=== PATIENT | male | born 1955 | race Caucasian/White ===

== ENCOUNTER 2018-07-21 14:57 | Inpatient (IN) ==
[2018-07-21] MEDS ORDERED: 0.9 % Sodium Chloride 1,000 ML IVC ONE (15:28)
[2018-07-21] MEDS ORDERED: Ipratropium/Albuterol Neb 3 ML IH ONE (15:29)
[2018-07-21] MEDS ORDERED: Aspirin 81 MG TAB.CHEW PO ONE (15:30)
[2018-07-21 15:54] LABS: Basophils % 0.2 %; Eosinophils # 0.1 K/mcL (0.0-0.6); Eosinophils % 0.5 %; Hematocrit 48.9 % (37.5-50.1); Hemoglobin 15.6 g/dL (12.9-16.9); Immature Granulocytes % 0.5 % (0-4); Lymphocytes # 1.7 K/mcL (0.6-4.6); Lymphocytes % 17.1 %; Mean Corpuscular HGB Conc 31.9 g/dL (31.6-35.5); Mean Corpuscular Hemoglobin 29.9 pg (28.0-33.3); Mean Corpuscular Volume 93.7 fL (83.0-100.0); Mean Platelet Volume 11.2 fL (9.4-12.4); Monocytes # 0.8 K/mcL (0.0-1.3); Monocytes % 7.7 %; Neutrophils # 7.4 K/mcL (1.6-8.9); Platelet Count 261 K/mcL (140-400); Red Blood Count 5.22 M/mcL (4.19-5.50); Red Cell Distribution Width 16.5 % (11.5-14.5)
[2018-07-21 16:14] LABS: Albumin 4.6 g/dL (3.5-5.7); Albumin/Globulin Ratio 1.8 (1.1-2.2); Bilirubin,Direct 0.4 mg/dL (0.0-0.2); Bilirubin,Indirect 0.6 mg/dL (0.0-1.2); Globulin 2.5 g/dL (2.4-3.5); Total Protein 7.1 g/dL (6.4-8.9)
[2018-07-21 16:15] LABS: BUN/Creatinine Ratio 34 (6-26); Blood Urea Nitrogen 39 mg/dL (8-23); Calcium 9.9 mg/dL (8.6-10.3); Carbon Dioxide 20 mEq/L (23-29); Chloride 105 mEq/L (98-107); Glucose 191 mg/dL (70-105); Osmolality,Calculated 301 (280-300); Potassium 5.2 mEq/L (3.5-5.1); Sodium 138 mEq/L (136-145); eGFR For Non-African Americans > 60 (> 60)
[2018-07-21 16:18] LABS: Troponin I 0.05 ng/mL (< 0.04)
[2018-07-21] MEDS ORDERED: Furosemide 40 MG/4 ML VIAL IVP ONE (16:28)
[2018-07-21] MEDS ORDERED: Nitroglycerin 25 MG/250 ML INFUS..BTL IVC SCH (16:30)
[2018-07-21] MEDS ORDERED: Piperacillin/Tazobactam 3.375 GM in 0.9 % Sodium Chloride Mini Bag 100 ML IVPB ONE (16:34)
[2018-07-21] MEDS ORDERED: *HR* Heparin 5,000 UNIT/ML VIAL IVP ONE (18:32)
[2018-07-21] MEDS ORDERED: *HR* Heparin 5,000 UNIT/ML VIAL IVP PRN ×2 (18:32)
--- NOTE | 2018-07-21 18:32 | Emergency Department Note ---
Disposition Clinical Impression: New onset a-fib, New onset of congestive heart failure, Non-STEMI (non-ST elevated myocardial infarction) Disposition: Admitted As Inpatient Condition: Good Referrals: Sherine Amezquita MD [Primary Care Provider] - General Adult HPI - General Chief complaint: ED Shortness of Breath/Dyspnea Stated complaint: dyspnea Time Seen by Provider: 07/21/18 15:17 Source: patient, family Mode of arrival: ambulatory Limitations: no limitations Nursing Notes Reviewed: Yes Vital Signs Reviewed: Yes - History of Present Illness HPI Narrative: Patient presenting to the emergency department for evaluation of dyspnea. Patient was initially brought back to the room placed on monitor and found to have a heart rate in the 150s to 170s. The patient himself is a very poor historian. He states that he is been short of breath for approximately the last week. Patient has friends at bedside. They state that the patient does not like to go to the doctor and was initially refusing to calm. Patient is mild cachectic with tobacco staining. Patient denies any history of COPD. He denies any previous history of similar. Patient is denying chest pain on initial ev aluation. The patient will undergo further evaluation for dyspnea including initial fluids as well as oxygen supplementation secondary to tachypnea despite his 100% SPO2 on room air Pain Scale: 5 - Related Data Allergies Allergy/AdvReac Type Severity Reaction Status Date / Time No Known Allergies Allergy Verified 07/21/18 14:59 Limitations: ROS unobtainable due to patients medical condition Constitutional: Denies: fever, chills Cardiovascular: Reports: dyspnea on exertion. Denies: chest pain Respiratory: Reports: dyspnea, wheezes Gastrointestinal: Reports: abdominal pain, diarrhea (Over the last week) Integumentary: Denies: rash, abrasion Past Medical History - Past Medical History Medical history: Reports: arthritis, diabetes, hypertension Psychiatric history: Reports: no psych history - Social History Smoking Status: Unknown if ever smoked Alcohol use: Reports: occasionally Drug use: Reports: none Physical Exam General: Patient in moderate distress secondary to respiratory symptoms Head: Normocephalic Atraumatic Eyes: PERRL, EOMI ENT: Airway patent, no stridor Neck: supple, no meningismus Chest: Decreased breath sounds bilaterally Cardiac: Irregular rhythm and rate Abdomen: soft, nontender, nondistended; no guarding, rebound, or tenderness to percussion Musculoskeletal: Calves symmetric, nontender. Skin: No rash, normal skin tone. Neuro: Alert and Oriented to person, place, and time; No obvious focal deficit. - General General appearance: alert Course - Reevaluation(s) Reevaluation #1: On reevaluation patient's heart rate has improved with oxygen and fluids to the 100-120. The patient looks much more comfortable. On reevaluation the patient states that he has been having some generalized abdominal pain with diarrhea. Patient with elevated lactate as well as troponin. Patient will undergo further investigation with CT abdomen and pelvis. Upon a initial lactate as well as concern for pleural effusions and possible abdominal source and initial dose of Zosyn was given. Blood cultures obtained prior. Reevaluation #2: X-ray concerning for pleural effusions. Patient was placed on BiPAP and had significant improvement in overall breathing as well as comfort. Patient with elevated troponin as well as significantly elevated BNP. Concern for new onset A. fib as well as CHF. - Consultations Consultation #1: Discussed with Dr. Enrique, interventional cardiology and patient EKG not consistent with STEMI. Patient to be placed on heparin and undergo further investigation Consultation #2: Discussed with hospitalist. Patient accepted for admission. Vital Signs Temperature 97.5 F L 07/21/18 15:14 Pulse Rate 126 07/21/18 15:14 Respiratory Rate 25 07/21/18 15:14 Blood Pressure 141/104 07/21/18 15:14 O2 Sat by Pulse Oximetry 100 07/21/18 15:14 Temperature 97.5 F L 07/21/18 15:14 Pulse Rate 126 07/21/18 15:14 Respiratory Rate 24 07/21/18 16:47 Blood Pressure 141/104 07/21/18 15:14 O2 Sat by Pulse Oximetry 100 07/21/18 16:47 Oxygen Delivery Oxygen Delivery Room Air Medical Decision Making - Lab Data Result diagrams: 07/21/18 15:31 07/21/18 15:31 Lab Results 07/21/18 07/21/18 07/21/18 Range/Units 15:31 15:31 15:31 WBC 10.0 (4.3-11.1) K/mcL RBC 5.22 (4.19-5.50) M/mcL Hgb 15.6 (12.9-16.9) g/dL Hct 48.9 (37.5-50.1) % MCV 93.7 (83.0-100.0) fL MCH 29.9 (28.0-33.3) pg MCHC 31.9 (31.6-35.5) g/dL RDW 16.5 H (11.5-14.5) % Plt Count 261 (140-400) K/mcL MPV 11.2 (9.4-12.4) fL Immature Gran % 0.5 (0-4) % Seg Neutrophils % 74.0 % Lymphocytes % 17.1 % Monocytes % 7.7 % Eosinophils % 0.5 % Basophils % 0.2 % Neutrophils # 7.4 (1.6-8.9) K/mcL Lymphocytes # 1.7 (0.6-4.6) K/mcL Monocytes # 0.8 (0.0-1.3) K/mcL Eosinophils # 0.1 (0.0-0.6) K/mcL Basophils # 0.0 (0.0-0.2) K/mcL Sodium 138 (136-145) mEq/L Potassium 5.2 H (3.5-5.1) mEq/L Chloride 105 (98-107) mEq/L Carbon Dioxide 20 L (23-29) mEq/L BUN 39 H (8-23) mg/dL Creatinine 1.14 (0.70-1.30) mg/dL Est GFR ( Amer) > 60 (> 60) Est GFR (Non-Af Amer) > 60 (> 60) BUN/Creatinine Ratio 34 H (6-26) Glucose 191 H (70-105) mg/dL Calculated Osmolality 301 H (280-300) Lactic Acid (0.5-2.2) mmol/L Calcium 9.9 (8.6-10.3) mg/dL Total Bilirubin 1.0 (0.3-1.0) mg/dL Direct Bilirubin 0.4 H (0.0-0.2) mg/dL Indirect Bilirubin 0.6 (0.0-1.2) mg/dL AST 31 (13-39) Units/L ALT 36 (7-52) Units/L Alkaline Phosphatase 73 (34-104) Units/L Troponin I 0.05 H* (< 0.04) ng/mL B-Natriuretic Peptide (Less than 100) pg/mL Serum Total Protein 7.1 (6.4-8.9) g/dL Albumin 4.6 (3.5-5.7) g/dL Globulin 2.5 (2.4-3.5) g/dL Albumin/Globulin Ratio 1.8 (1.1-2.2) 07/21/18 07/21/18 07/21/18 Range/Units 15:31 15:41 17:35 WBC (4.3-11.1) K/mcL RBC (4.19-5.50) M/mcL Hgb (12.9-16.9) g/dL Hct (37.5-50.1) % MCV (83.0-100.0) fL MCH (28.0-33.3) pg MCHC (31.6-35.5) g/dL RDW (11.5-14.5) % Plt Count (140-400) K/mcL MPV (9.4-12.4) fL Immature Gran % (0-4) % Seg Neutrophils % % Lymphocytes % % Monocytes % % Eosinophils % % Basophils % % Neutrophils # (1.6-8.9) K/mcL Lymphocytes # (0.6-4.6) K/mcL Monocytes # (0.0-1.3) K/mcL Eosinophils # (0.0-0.6) K/mcL Basophils # (0.0-0.2) K/mcL Sodium (136-145) mEq/L Potassium (3.5-5.1) mEq/L Chloride (98-107) mEq/L Carbon Dioxide (23-29) mEq/L BUN (8-23) mg/dL Creatinine (0.70-1.30) mg/dL Est GFR ( Amer) (> 60) Est GFR (Non-Af Amer) (> 60) BUN/Creatinine Ratio (6-26) Glucose (70-105) mg/dL Calculated Osmolality (280-300) Lactic Acid 5.7 H* 3.7 H (0.5-2.2) mmol/L Calcium (8.6-10.3) mg/dL Total Bilirubin (0.3-1.0) mg/dL Direct Bilirubin (0.0-0.2) mg/dL Indirect Bilirubin (0.0-1.2) mg/dL AST (13-39) Units/L ALT (7-52) Units/L Alkaline Phosphatase (34-104) Units/L Troponin I (< 0.04) ng/mL B-Natriuretic Peptide 1821 H (Less than 100) pg/mL Serum Total Protein (6.4-8.9) g/dL Albumin (3.5-5.7) g/dL Globulin (2.4-3.5) g/dL Albumin/Globulin Ratio (1.1-2.2)
[2018-07-21] MEDS ORDERED: Heparin 25,000 UNIT/500 ML D5W 25,000 UNIT/500 ML BAG IVC SCH (18:45)
[2018-07-21] MEDS ORDERED: Naloxone 0.4 MG/ML INJ IVP PRN (23:08)
--- NOTE | 2018-07-21 23:20 | Internal Med History&Physical ---
Date of Encounter: 07/22/18 Time of Encounter: 01:20 Internal Medicine - H&P: HPI Chief complaint: New-onset atrial fibrillation, new onset congestive heart failure, NSTEMI Admitted From: Emergency Dept Plans for Post Hospital Care: Home History of present illness: Mr. Marc is a 62 year old male Patient presented to the emergency room for shortness of breath. Upon arrival he was noted to have a heart rate up into the 170s. Patient was a poor historian but stated that his symptoms began about a week prior to his pr esentation. He does not see a doctor regularly. He denied chest pain and had 100% saturations on room air. Patient was given IV fluids and oxygen and his heart rate improved to 100-120. Patient then stated that he was having generalized abdominal pain and diarrhea. CBC was within normal limits. BMP showed a potassium of 5.2 but otherwise within normal limits. Patient's initial lactic acid was 5.7 but improved to 2.5 with IV fluids. Patient's troponin was elevated to 0.05, and his initial BNP was 1821. Chest x-ray showed pleural effusions and atelectasis. Due to his abdominal pain in abdomen and pelvis CT was ordered that showed no definitive acute process in the abdomen or pelvis. It did show small to moderate bilateral pleural effusions present with bilateral lower lobe compressive atelectasis and possible small amount of airspace consolidation. There is small amount of ascites and diffuse anasarca in the soft tissues suggestive of diffuse third spacing of fluid. The liver appeared noncirrhotic. Blood cultures were drawn and patient was started on Zosyn. He is also put on BiPAP and showed significant improvement with his breathing. EKG was performed and showed sinus tach with a rate of 101, frequent atrial preventricular complexes and a QTC of 471. Patient also had a prolonged RI interval of 220 ms. Patient's V1 through V3 appeared to have some ST elevations, and the emergency room contacted Dr. Enrique of interventional cardiology , and it was determined to not be consistent with a STEMI. He recommended patient be put on heparin drip and will consult on the patient in the morning. Patient was given 40 mg of Lasix, nitroglycerin glycerin drip was ordered but not started due to low blood pressures. He was sent to the medical floor for further management with diagnosis of new onset atrial fibrillation, NSTEMI and congestive heart failure. Upon my evaluation, patient has BiPAP mask applied and is resting comfortably in the hospital bed. He denies nausea, vomiting, chest pain, diarrhea, constipation and abdominal pain. Past Med Surg Social Fam HX - Past Medical History Medical history: arthritis, diabetes, hypertension Psychiatric history: no psych history - Social History Smoking Status: Unknown if ever smoked Alcohol use: occasionally Drug use: none Internal Medicine - H&P: Meds Allergy/AdvReac Type Severity Reaction Status Date / Time No Known Allergies Allergy Verified 07/21/18 14:59 All Systems PM: A 10-system review of systems was performed and is negative for pertinent fi ndings except as documented above in the HPI. - Constitutional Vitals: Temp Pulse Resp BP Pulse Ox 97.8 F 96 28 99/71 100 07/21/18 22:47 07/21/18 22:47 07/21/18 22:54 07/21/18 22:47 07/21/18 22:54 General appearance: Present: cooperative, A&O X 3, pleasant, no acute distress, answers questions appropriately Exam: - - Head Head exam: Present: normal inspection - Eye Eye exam: Present: EOMI, normal appearance - Respiratory Respiratory exam: Absent: CTAB, rales, respiratory distress, rhonchi, wheezes - Cardiovascular Cardiovascular exam: Present: irregular rhythm. Absent: diastolic murmur, systolic murmur - GI/Abdominal GI/Abdominal exam: Present: normal bowel sounds, soft. Absent: tenderness - Extremities Exam Extremities exam: Present: warm, radial pulses palpable and symmetrical. Absent: pedal edema, tenderness - Neurological Exam Neurological exam: Present: no focal deficits, strengths equal and symetr throughout. Absent: motor sensory deficit, facial droop, speech deficit - Skin Skin exam: Present: dry, normal color, warm Internal Med - H&P Results - Labs CBC & Chem 7: 07/21/18 15:31 07/21/18 15:31 Labs: Short CBC 07/21/18 Range/Units 15:31 WBC 10.0 (4.3-11.1) K/mcL Hgb 15.6 (12.9-16.9) g/dL Hct 48.9 (37.5-50.1) % Plt Count 261 (140-400) K/mcL Neutrophils # 7.4 (1.6-8.9) K/mcL BMP 07/21/18 15:31 Sodium 138 Potassium 5.2 H Chloride 105 Carbon Dioxide 20 L BUN 39 H Creatinine 1.14 Glucose 191 H Calcium 9.9 Cardiac Enzymes 07/21/18 Range/Units 15:31 Troponin I 0.05 H* (< 0.04) ng/mL Liver Function 07/21/18 Range/Units 15:31 Total Bilirubin 1.0 (0.3-1.0) mg/dL Direct Bilirubin 0.4 H (0.0-0.2) mg/dL AST 31 (13-39) Units/L ALT 36 (7-52) Units/L Alkaline Phosphatase 73 (34-104) Units/L Albumin 4.6 (3.5-5.7) g/dL - Impressions ITS Impressions Chest X-Ray 07/21/18 15:29 IMPRESSION: Pleural effusions and atelectasis. D/ / Zackery Askew MD / Zackery Askew MD Interpreting Provider: Zackery Askew MD Abdomen/Pelvis CT 07/21/18 16:28 IMPRESSION: 1. No definite acute process in the abdomen or pelvis. 2. Small to moderate bilateral pleural effusions are present with bilateral lower lobe compressive atelectasis and a possible small amount of airspace consolidation. 3. A small amount of ascites and diffuse anasarca in the soft tissues are also present. Findings are overall suggestive of diffuse third-spacing of fluid. The liver is non-cirrhotic in appearance. D/ / 07/21/2018 17:44:57 Devon Donahue MD / tyson Interpreting Provider: Devon Donahue MD - Assessment and plan (1) New onset a-fib Current Visit: Yes Status: Acute Assessment and plan: Patient has a regular heart rate on exam, and on EKG. Previous EKG from 2012 showed sinus rhythm. Echocardiogram from September of last year also did not indicate atrial fibrillation. Patient was started on heparin drip in the emergency room and cardiology was consulted. Cardiac monitoring Continue to trend troponins Follow-up cardiology consult Heparin drip (2) New onset of congestive heart failure Current Visit: Yes Status: Acute Assessment and plan: Worsened from last September when patient had an echocardiogram performed that indicated mild left ventricular diastolic dysfunction with an ejection fraction of 40-45%. No previous BNP is have been performed, patient's BNP in the emergency room was 1821. On imaging he also had pleural effusions, ascites and generalized anasarca. 40 mg of Lasix was given to the patient in the ER. Continue BiPAP Cardiology consult in the morning Continue Lasix Cardiac monitoring Daily weights Strict I's and O's (3) Non-STEMI (non-ST elevated myocardial infarction) Current Visit: Yes Status: Acute Assessment and plan: Patient's troponin elevated to 0.05, with no STEMI changes on EKG. 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 Diabetic diet Monitor sugars with meals and at night Low-dose insulin sliding scale Hold home meds Qualifiers: Diabetes mellitus type: type 2 Diabetes mellitus fdc insulin use: without fdc use Diabetes mellitus complication status: without complication Qualified Code(s): E11.9 - Type 2 diabetes mellitus without complications (5) Nicotine dependence Current Visit: Yes Status: Acute Assessment and plan: Nicotine patch as needed Qualifiers: Nicotine product type: cigarettes Substance use status: uncomplicated Qualified Code(s): F17.210 - Nicotine dependence, cigarettes, uncomplicated (6) DVT prophylaxis Current Visit: Yes Status: Acute Assessment and plan: Patient on heparin drip - Time Spent With Patient Total time spent is greater than 50% in coordination of care (as documented) at patient's floor/unit and/or counseling patient:
[2018-07-22] MEDS ORDERED: *HR* Dextrose 50 % in Water (Syg) 50 ML SYRINGE IVP PRN (04:09)
[2018-07-22] MEDS ORDERED: D5% in Water 1,000 ML IVC PRN (04:09)
[2018-07-22] MEDS ORDERED: Dextrose Gel 15 GM/37.5 ML TUBE PO PRN ×2 (04:09)
[2018-07-22] MEDS ORDERED: Nicotine 21 MG PATCH.TD24 TD PRN (04:12)
[2018-07-22 06:15] LABS: Hematocrit 42.3 % (37.5-50.1); Mean Corpuscular HGB Conc 31.9 g/dL (31.6-35.5); Mean Corpuscular Hemoglobin 29.4 pg (28.0-33.3); Mean Corpuscular Volume 92.2 fL (83.0-100.0); Mean Platelet Volume 11.2 fL (9.4-12.4); Platelet Count 182 K/mcL (140-400); Red Blood Count 4.59 M/mcL (4.19-5.50); Red Cell Distribution Width 16.2 % (11.5-14.5)
[2018-07-22 06:18] LABS: Hemoglobin 13.5 g/dL (12.9-16.9)
[2018-07-22 07:25] LABS: BUN/Creatinine Ratio 48 (6-26); Blood Urea Nitrogen 44 mg/dL (8-23); Calcium 9.1 mg/dL (8.6-10.3); Carbon Dioxide 20 mEq/L (23-29); Chloride 109 mEq/L (98-107); Glucose 157 mg/dL (70-105); Osmolality,Calculated 302 (280-300); Potassium 4.5 mEq/L (3.5-5.1); Sodium 139 mEq/L (136-145); eGFR For Non-African Americans > 60 (> 60)
[2018-07-22] MEDS: Insulin LISPRO 300 UNITS/3 ML VIAL SQ SCH ×4 (07:38→22:03)
--- NOTE | 2018-07-22 08:13 | Cardiology Consult Note ---
Addendum entered and electronically signed by Nicko Waterman DO 07/22/18 11:53: I have personally performed a face to face evaluation on this patient. I have r eviewed and agree with the care plan. History and exam by me shows: Patient independently seen and examined. History of COPD and a nonischemic cardiomyopathy. TTE 2012 demonstrated an LVEF of 40-45%. Presents with increasing shortness of breath and hypoxia from PCPs office. Mild, adynamic troponin elevation noted. No acute ECG changes. Elevated BNP. Pleural effusions noted on chest x-ray. Heart failure with reduced ejection fraction, acutely decompensated. History of a nonischemic cardiomyopathy. Mild troponin elevation likely secondary to respiratory insufficiency and hypoxemia. Presentation is not consistent with ACS. Agree with ongoing diuresis as tolerated. Monitor creatinine, daily weights, strict I's and O's. CHF education provided. Agree with resuming beta toni. Consider ANNIE inhibitor prior to discharge. Continue IV Lasix for now, transition to oral prior to discharge. Atrial tachycardia noted. Beta toni should help. Okay to stop heparin. Thanks, Nicko Waterman DO, [facility] Original Note: Date of Encounter: 07/22/18 Time of Encounter: 08:00 Assessment and Plan (1) Acute on chronic systolic (congestive) heart failure Current Visit: Yes Status: Acute Patient with history of NICMP EF 40-45% diagnosed in 2012. Re-peat TTE pending. BNP 1882. Troponin 0.05, 0.04x2. Likely demand ischemia in the setting of CHF. Last TTE 09/2017-EF 40-455, mild DD. No significant valvular disease. Per family patient has poor f/u out-pt. Poor historian. CHF education reviewed. Low sodium diet stressed. Per home med list patient was on GDMT. Will restart toprol XL at 50mg daily. Add aceI if b/p allows. Continue IV lasix. Strict I&O and daily weights. (2) Cardiomyopathy Current Visit: Yes Status: Chronic H/o NICMP. [facility] 2012 showed non-obstructive CAD. Qualifiers: Cardiomyopathy type: ischemic Qualified Code(s): I25.5 - Ischemic cardiomyopathy (3) Atrial tachycardia Current Visit: Yes Status: Acute Intermittent atrial tachycardia seen. Appears to be sinus tachycardia with first degree block and PAC. At times it is not clear. I will review with Dr. Waterman. On heparin gtt for possible afib. Restart bb. Discussion w patient/family: The assessment and plan as outlined above was discussed with the patient and/or family members who expressed understanding and agreement. All questions were answered. Thank you for involving us in the care of your patient. Please call with any questions. History of Present Illness Consult date: 07/22/18 Requesting physician: Rasheed Toth Consult reason: abnormal EKG, Chest pain Chief complaint: Chest pain, SOB History of present illness: Mr. Marc is a 62 year old male with a past medical history significant for COPD, tobacco use, NICMP, non-obstructive CAD on [facility] 2012, DM, HTN. He presents to the hospital from his PCP office with the c/o difficulty breathing and chest pain. C/o chest congestion, cough, and SOB "all winter." Yesterday at his PCP office he developed increased SOB and midsternal chest pressure. His SPO2 was 40% on arrival to his PCP per family. He was sent to the ED. His work-up included EKG that showed sinus tachycardia sinus arrhythmia first degree block. Troponin elevated at 0.04. CXR showed pleural effusions. CT scan also showed small to moderate pleural effusions with compressive atelectasis. Cardiology consulted for further recommendations. On my exam he was chest pain free. Past Med Surg Social Fam HX - Past Medical History Medical history: arthritis, cardiomyopathy, coronary artery disease, diabetes, hypertension Psychiatric history: no psych history - Social History Smoking Status: Unknown if ever smoked Alcohol use: occasionally Drug use: none Medications and Allergies Allergy/AdvReac Type Severity Reaction Status Date / Time No Known Allergies Allergy Verified 07/21/18 14:59 All Systems Review: The remainder of the systems were reviewed and are negative Physical Examination Vital Signs, Last 4 Hours Temp Pulse Resp BP Pulse Ox 07/22/18 07:50 98.5 F 93 20 100/59 94 07/22/18 05:08 98.4 F 90 20 104/64 100 07/22/18 04:39 25 99/71 100 General: Conversant, No Apparent Distress HEENT: Atraumatic, Normocephaly, Mucus Membranes Moist Neck: No JVD, Normal carotid pulses Cardiac: Reg Rate and Rhythm, Normal S1 and S2, No Murmur Lungs: Normal Breath Sounds, No Wheeze, Rales, Rhonchi Neuro: Alert and responsive, No focal deficits noted Abdomen: Soft, Non-Tender Skin: No rashes noted on visualized skin Musculoskeletal: No Chest Wall Tenderness Extremities: No Clubbing, No Cyanosis, Normal Pulses, Other (2= pitting edema ) Results 07/22/18 06:04 07/22/18 06:04 Lab Results 07/21/18 07/21/18 07/21/18 15:31 15:31 15:31 WBC 10.0 Hgb 15.6 Hct 48.9 Plt Count 261 Sodium 138 Potassium 5.2 H Chloride 105 Carbon Dioxide 20 L BUN 39 H Creatinine 1.14 Glucose 191 H Calcium 9.9 Total Bilirubin 1.0 AST 31 ALT 36 Alkaline Phosphatase 73 Troponin I 0.05 H* B-Natriuretic Peptide 07/21/18 07/22/18 07/22/18 15:31 01:07 06:04 WBC 7.4 Hgb 13.5 D Hct 42.3 Plt Count 182 Sodium Potassium Chloride Carbon Dioxide BUN Creatinine Glucose Calcium Total Bilirubin AST ALT Alkaline Phosphatase Troponin I 0.04 H* B-Natriuretic Peptide 1821 H 07/22/18 07/22/18 06:04 06:04 WBC Hgb Hct Plt Count Sodium 139 Potassium 4.5 Chloride 109 H Carbon Dioxide 20 L BUN 44 H Creatinine 0.91 Glucose 157 H Calcium 9.1 Total Bilirubin AST ALT Alkaline Phosphatase Troponin I 0.04 H* B-Natriuretic Peptide - Imaging and Cardiology Echo: report reviewed - EKG Interpretation EKG results cardiology: personally reviewed Consult Discharge Plan - Plan Referrals: Sherine Amezquita MD [Primary Care Provider] -
[2018-07-22] MEDS: Furosemide 40 MG/4 ML VIAL IVP SCH ×2 (09:05→17:07)
[2018-07-22 11:16] LABS: Estimated Average Glucose 137 mg/dl; Hemoglobin A1C 6.4 %
[2018-07-22] MEDS: Metoprolol XL (24 HR) Succ 50 MG TAB.ER.24H PO SCH (11:55)
--- NOTE | 2018-07-22 13:02 | Internal Med Progress Note ---
Hospitalist Progress Note - Encounter Date of Encounter: 07/22/18 Time of Encounter: 12:59 - Subjective Interval History: I have seen and evaluated this patient at bedside. He reports improvement in his shortness of breath. denies chest pain, nausea or vomiting. reports chronic diarrhea. - Exam Vitals: Temp Pulse Resp BP Pulse Ox 97.5 F L 96 20 111/73 96 07/22/18 11:35 07/22/18 11:35 07/22/18 11:35 07/22/18 11:35 07/22/18 11:35 Exam: Vitals: Reviewed. General: Alert and oriented x3. In mild distress due to shortness of breath. Skin: Normal color, no rash, no lesions. HEENT: EOM, pupils equal, round and reactive. Cardiovascular: RRR, normal S1 & S2, no rubs, murmurs or gallops. Lungs: CTA b/l, no wheezes or crackles. Abdomen: Obese, Soft, non-tender, no rigidity. Extremities: trace pitting edema in the lower extr b/l. 2/5 strength in the lower extr b/l. Neurological: Normal cognition. Rest of the physical exam is non contributory - Assessment and Plan (1) Acute on chronic systolic (congestive) heart failure Current Visit: Yes Status: Acute Assessment and Plan: Patient presenting with shortness of breath. Plan: Continue gentle IV diruresis with furosemide 40mg/IV BID strict intake and output water restriction to 1.5 litters a day. daily weight 2 gram sodium diet will continue to follow cardiology recommendations consider adding low dose ACEs if BP tolerates it. Continue low dose beta-toni (2) Hypertension Current Visit: Yes Status: Chronic Assessment and Plan: BP running in the low side. Patient on furosemide and metoprolol. holding parameter for SBP <110 (3) COPD (chronic obstructive pulmonary disease) Current Visit: Yes Status: Chronic Assessment and Plan: Not on acute exacerbation. no wheezing on auscultation. Plan incentive spirometry, plus bronchodilators PRN. (4) Diabetes Current Visit: Yes Status: Chronic Assessment and Plan: A1C 6.4. Blood sugar well controlled on lispro medium dose sliding scale. carb controlled diet. (5) Diarrhea Current Visit: Yes Status: Chronic Assessment and Plan: GI panel. Consider consulting GI for further work-up following GI panel. DVT Prophylaxis: On heparin subQ. - Summary of Assessment and Plan Summary of Assessment and Plan: Patient to remain in the hospital due to acute decompensated HfrEf on IV diuretics. - Time Spent with Patient Total time spent is greater than 50% in coordination of care (as documented) at patient's floor/unit and/or counseling patient: Greater than 35 minutes (45) Plan of Care Discussed with: patient (and the nurse.) Internal Medicine: Result - Labs CBC & Chem 7: 07/22/18 06:04 07/22/18 06:04 Labs: Short CBC 07/21/18 07/22/18 Range/Units 15:31 06:04 WBC 10.0 7.4 (4.3-11.1) K/mcL Hgb 15.6 13.5 D (12.9-16.9) g/dL Hct 48.9 42.3 (37.5-50.1) % Plt Count 261 182 (140-400) K/mcL Neutrophils # 7.4 (1.6-8.9) K/mcL BMP 07/21/18 07/22/18 15:31 06:04 Sodium 138 139 Potassium 5.2 H 4.5 Chloride 105 109 H Carbon Dioxide 20 L 20 L BUN 39 H 44 H Creatinine 1.14 0.91 Glucose 191 H 157 H Calcium 9.9 9.1 Cardiac Enzymes 07/21/18 07/22/18 07/22/18 Range/Units 15:31 01:07 06:04 Troponin I 0.05 H* 0.04 H* 0.04 H* (< 0.04) ng/mL Liver Function 07/21/18 Range/Units 15:31 Total Bilirubin 1.0 (0.3-1.0) mg/dL Direct Bilirubin 0.4 H (0.0-0.2) mg/dL AST 31 (13-39) Units/L ALT 36 (7-52) Units/L Alkaline Phosphatase 73 (34-104) Units/L Albumin 4.6 (3.5-5.7) g/dL - Impressions Impressions Chest X-Ray 07/21/18 15:29 IMPRESSION: Pleural effusions and atelectasis. D/ / Zackery Askew MD / Zackery Askew MD Interpreting Provider: Zackery Askew MD Abdomen/Pelvis CT 07/21/18 16:28 IMPRESSION: 1. No definite acute process in the abdomen or pelvis. 2. Small to moderate bilateral pleural effusions are present with bilateral lower lobe compressive atelectasis and a possible small amount of airspace consolidation. 3. A small amount of ascites and diffuse anasarca in the soft tissues are also present. Findings are overall suggestive of diffuse third-spacing of fluid. The liver is non-cirrhotic in appearance. D/ / 07/21/2018 17:44:57 Devon Donahue MD / [facility] Interpreting Provider: Devon Donahue MD Consult Discharge Plan - Plan Referrals: Sherine Amezquita MD [Primary Care Provider] - (2) Hypertension Qualifiers: Hypertension type: unspecified Qualified Code(s): I10 - Essential (primary) hypertension (3) COPD (chronic obstructive pulmonary disease) Qualifiers: COPD type: unspecified COPD Qualified Code(s): J44.9 - Chronic obstructive pulmonary disease, unspecified (4) Diabetes Qualifiers: Diabetes mellitus type: type 2 Diabetes mellitus placing judge insulin use: without placing judge use Diabetes mellitus complication status: without complication Qualified Code(s): E11.9 - Type 2 diabetes mellitus without complications (5) Diarrhea Qualifiers: Diarrhea type: unspecified type Qualified Code(s): R19.7 - Diarrhea, unspecified
[2018-07-22] MEDS ORDERED: Ipratropium/Albuterol Neb 3 ML IH PRN (13:05)
[2018-07-22] MEDS: *HR* Heparin 5,000 UNIT/ML VIAL SQ SCH ×2 (14:19→22:28)
--- NOTE | 2018-07-22 21:35 | Electrocardiograph Report ---
[address] [address] Test Date: 2018-07-21 Pat Name: Justin Marc Department: EXAM14 Room: 2A Gender: M Pediatric Oncology Nurse: : 1955 Requested By: Rik Francois Order Number: [id number] Reading MD: Tristin Awan Measurements Intervals [place] Rate: 101 P: 20 TX: 220 QRS: 31 QRSD: 107 T: 171 QT: 363 QTc: 471 Interpretive Statements Multifocal atrial tachycardia Low voltage, extremity leads Poor R wave progression Nonspecific T abnormalities, lateral leads Electronically Signed On 07-22-2018 21:34:42 EST by Tristin Awan
[2018-07-23 01:47] LABS: ABG Base Excess -5 mEq/L (-2 to 3); ABG HCO3 21 mEq/L (21-27); ABG Oxygen Saturation 98 % (95-98); ABG PCO2 42 mmHg (35-45); ABG PH 7.31 pH Units (7.32-7.45); ABG PO2 117 mmHg (85-104); ABG TCO2 23 mEq/L (20-26)
--- NOTE | 2018-07-23 05:31 | Event Note ---
Date of Encounter: 07/23/18 Time of Encounter: 01:03 Notified by nurse of patient having increased respiratory rate with brief periods of apnea. Assessed at bedside with Dr Vale. Appears to have undiagnosed sleep apnea. Vitals stable, remains easily arousable, and oriented. ABG ordered and RT to bedside to adjust BIPAP mask. Would likely benefit from sleep study.
[2018-07-23] MEDS: *HR* Heparin 5,000 UNIT/ML VIAL SQ SCH ×3 (06:15→21:11)
[2018-07-23 07:27] LABS: Basophils % 0.4 %; Eosinophils % 0.3 %; Hemoglobin 13.9 g/dL (12.9-16.9); Immature Granulocytes % 0.4 % (0-4); Lymphocytes # 1.8 K/mcL (0.6-4.6); Mean Corpuscular HGB Conc 32.3 g/dL (31.6-35.5); Mean Corpuscular Hemoglobin 29.6 pg (28.0-33.3); Mean Corpuscular Volume 91.5 fL (83.0-100.0); Mean Platelet Volume 11.4 fL (9.4-12.4); Monocytes # 1.2 K/mcL (0.0-1.3); Monocytes % 10.4 %; Neutrophils # 8.1 K/mcL (1.6-8.9); Platelet Count 218 K/mcL (140-400); Red Cell Distribution Width 16.1 % (11.5-14.5); Segmented Neutrophils % 72.5 %
[2018-07-23 07:55] LABS: Calcium 9.2 mg/dL (8.6-10.3); Magnesium 1.9 mg/dL (1.6-2.6); Phosphorous 5.5 mg/dL (2.7-4.5); Potassium 4.7 mEq/L (3.5-5.1)
[2018-07-23] MEDS: Insulin LISPRO 300 UNITS/3 ML VIAL SQ SCH ×4 (09:01→21:11)
[2018-07-23] MEDS: Metoprolol XL (24 HR) Succ 50 MG TAB.ER.24H PO SCH (09:02)
[2018-07-23] MEDS: Furosemide 40 MG/4 ML VIAL IVP SCH (09:02)
[2018-07-23] MEDS ORDERED: 0.9 % Sodium Chloride 250 ML IVC ONE (10:09)
--- NOTE | 2018-07-23 10:22 | Internal Med Progress Note ---
<DantefabiánHaley mendez - Last Filed: 07/23/18 14:09> Hospitalist Progress Note - Encounter Date of Encounter: 07/23/18 Time of Encounter: 08:30 - Subjective Interval History: Patient seen and examined at bedside. Pt sleeping comfortably with Bipap on upon my arrival. He states that he is not having any SOB, CP, abdominal pain. He r eports that he is comfortable. He did have an episode of possible sleep apnea overnight. - Exam Vitals: Temp Pulse Resp BP Pulse Ox 98.4 F 84 20 92/68 100 07/23/18 08:02 07/23/18 08:02 07/23/18 08:02 07/23/18 10:03 07/23/18 08:02 Exam: General: Alert and oriented . WD/WN In NAD. Skin: Normal color, no rash, no lesions. HEENT: EOMI, PERRLA, mucous membranes moist Cardiovascular: RRR, normal S1 & S2, no rubs, murmurs or gallops. Lungs: LCTAB, no cyanosis Abdomen: Obese, Soft, non-tender, no rigidity. BS present Extremities: trace pitting edema in the lower extr b/l. Neurological: alert, no acute deficits - Assessment and Plan (1) Acute on chronic systolic (congestive) heart failure Current Visit: Yes Status: Acute Assessment and Plan: SOB improved. Pt currently on Bipap LCTAB UOP 07/22: 1453 Cardiology has been consulted, appreciate their recommendations. Plan: -Will hold lasix for now in setting of SHAREE, restart based on clinical picture -Strict intake and output -Water restriction to 1.5 litters a day. -Daily weight -2 gram sodium diet -Continue low dose beta-toni -Consider adding low dose ACEI if BP tolerates it. (2) SHAREE (acute kidney injury) Current Visit: Yes Status: Acute Assessment and Plan: SHAREE in the setting of AECHF with aggressive diueresis SCr 1.68, GFR 41 with baseline SCr in normal range Plan: -Hold lasix for now -Strict I&O -Talavera cath -Renal US -Continue to monitor renal function -Avoid nephrotoxins and renally dose medications (3) COPD (chronic obstructive pulmonary disease) Current Visit: Yes Status: Chronic Assessment and Plan: Not on acute exacerbation. LCTAB Plan: -Incentive spirometry -Bronchodilators PRN. (4) Diabetes Current Visit: Yes Status: Chronic Assessment and Plan: BS in the 130s-190s Plan: -Accuchecks ACHS -Continue SSI (5) Hypertension Current Visit: Yes Status: Chronic Assessment and Plan: Currently slightly hpotensive in the low 90's systolic. Pt has been lower this admission, currently asymptomatic. Plan: -250cc NS bolus while wearing bipap -Hold metoprolol for SBP<110 DVT Prophylaxis: Heparin SQ. - Time Spent with Patient Total time spent is greater than 50% in coordination of care (as documented) at patient's floor/unit and/or counseling patient: Internal Medicine: Result - Labs CBC & Chem 7: 07/23/18 06:52 07/23/18 06:52 Labs: Short CBC 07/23/18 Range/Units 06:52 WBC 11.2 H D (4.3-11.1) K/mcL Hgb 13.9 (12.9-16.9) g/dL Hct 43.0 (37.5-50.1) % Plt Count 218 (140-400) K/mcL Neutrophils # 8.1 (1.6-8.9) K/mcL BMP 07/23/18 06:52 Sodium 136 Potassium 4.7 Chloride 104 Carbon Dioxide 20 L BUN 60 H Creatinine 1.68 H Glucose 146 H Calcium 9.2 Cardiac Enzymes 07/22/18 Range/Units 13:45 Troponin I 0.04 H* (< 0.04) ng/mL - ABG Interpretation ABG results: ABG ABG pH 7.31 pH Units (7.32-7.45) L 07/23/18 01:41 ABG pCO2 42 mmHg (35-45) 07/23/18 01:41 ABG pO2 117 mmHg (85-104) H 07/23/18 01:41 ABG O2 Saturation 98 % (95-98) 07/23/18 01:41 Consult Discharge Plan - Plan Referrals: Sherine Amezquita MD [Primary Care Provider] - <Tg Morse - Last Filed: 07/23/18 15:05> Hospitalist Progress Note - Encounter Date of Encounter: 07/23/18 Time of Encounter: 14:58 - Exam Vitals: Temp Pulse Resp BP Pulse Ox 98.6 F 84 20 98/66 95 07/23/18 12:09 07/23/18 12:09 07/23/18 12:09 07/23/18 12:09 07/23/18 12:09 - Assessment and Plan (1) Diabetes Current Visit: Yes Status: Chronic (2) Acute on chronic systolic (congestive) heart failure Current Visit: Yes Status: Acute (3) Hypertension Current Visit: Yes Status: Chronic (4) COPD (chronic obstructive pulmonary disease) Current Visit: Yes Status: Chronic (5) Diarrhea Current Visit: Yes Status: Chronic - Time Spent with Patient Total time spent is greater than 50% in coordination of care (as documented) at patient's floor/unit and/or counseling patient: Internal Medicine: Result - Labs CBC & Chem 7: 07/23/18 06:52 07/23/18 06:52 Labs: Short CBC 07/23/18 Range/Units 06:52 WBC 11.2 H D (4.3-11.1) K/mcL Hgb 13.9 (12.9-16.9) g/dL Hct 43.0 (37.5-50.1) % Plt Count 218 (140-400) K/mcL Neutrophils # 8.1 (1.6-8.9) K/mcL BMP 07/23/18 06:52 Sodium 136 Potassium 4.7 Chloride 104 Carbon Dioxide 20 L BUN 60 H Creatinine 1.68 H Glucose 146 H Calcium 9.2 - ABG Interpretation ABG results: ABG ABG pH 7.31 pH Units (7.32-7.45) L 07/23/18 01:41 ABG pCO2 42 mmHg (35-45) 07/23/18 01:41 ABG pO2 117 mmHg (85-104) H 07/23/18 01:41 ABG O2 Saturation 98 % (95-98) 07/23/18 01:41 - Impressions Impressions Echocardiogram 07/23/18 15:18 Impressions: LVEF 30-35%. Severe global left ventricular systolic dysfunction. Mild left ventricular diastolic dysfunction. Mildly dilated left atrium. Moderate right ventricular hypokinesis. Moderate mitral regurgitation. Mild tricuspid regurgitation. Mild pulmonary hypertension. Left Ventricular Wall Motion: Rest Echo Findings The apex, apical inferior, mid inferior, basal inferior, apical anterior, mid anterior, basal anterior, apical septal, mid inferior septal, basal inferior septal, apical lateral, mid anterior lateral, basal anterior lateral, mid anterior septal, mid inferior lateral, basal anterior septal and basal inferior lateral gong were hypokinetic. Findings: Study Quality * Technically sub-optimal due to clinical status. ECG Findings * Sinus rhythm with BBB and frequent PVCs Left Ventricle * LVEF 30-35%. * Normal LV chamber size and wall thickness. * Severe global left ventricular systolic dysfunction. * Mild left ventricular diastolic dysfunction. * Atypical septal motion consistent with bundle branch block. Right Ventricle * Normal right ventricular structure. * Moderate right ventricular hypokinesis. Left Atrium * Mildly dilated left atrium. Right Atrium * Normal right atrial size. Interatrial Septum * Interatrial septum not well evaluated. * No evidence of PFO by color Doppler. Aortic Valve * Trileaflet aortic valve. * Mildly calcified aortic valve leaflets. * No aortic stenosis. * No aortic regurgitation. Mitral Valve * Normal mitral valve structure. * No mitral stenosis. * Moderate mitral regurgitation. Tricuspid Valve * Normal tricuspid valve structure. * No tricuspid stenosis. * Mild tricuspid regurgitation. * Estimated RVSP is 47 mmHg. * Estimated RA pressure is 8 mmHg. * Mild pulmonary hypertension. Pulmonic Valve * Pulmonic valve is not well visualized. * No pulmonic stenosis. * No pulmonic regurgitation. Aorta * Normally sized aortic root. Pericardium * The pericardium appears normal. * Appearance is consistent with a {type} mitral valve replacement. Function appears {function{. IVC * The IVC is not dilated. * < 50% respiratory change. - Attending Attestation I saw evaluated and examined this patient and my medical decision-making was reviewed with the Resident Physician, Haley Haynes. I agree with the documented findings, disposition and treatment plan as described except to any changes set forth below. We independently had typh-kp-obld contact with the patient. I evaluated patient earlier today. He was wearing BiPAP mask and easily awoken answer questions appropriately. He reports feeling somewhat better after BiPAP was placed. He has had good urine output but is incontinent. No fevers or chills reported overnight. He did have episodes of apneic spells while sleeping last night. As such BiPAP was placed. General: Patient is alert, moderate distress, oriented x 3 ENT: Mucous membranes moist Respiratory: Decreased breath sounds at both bases Cardiovascular: Regular rate and rhythm. s1 and s2 normal No clicks, rubs, gallops, or murmurs. Bilateral pedal edema Abdomen: Abdomen is soft, nontender. Bowel sounds are present Musculoskeletal: Spontaneously moving all extremities Skin: warm, dry, intact. Neuro: Alert oriented x 3 normal cranial nerves, no focal deficits Acute on chronic systolic congestive heart failure: Patient has had good response to Lasix. However his renal function has worsened today. We will hold Lasix for now. Check chest x-ray follow cardiology recommendations. Patient's 2-D echocardiogram showed EF of 30-35% with severe global left ventricle is systolic dysfunction. Elevated troponin: Likely from demand ischemia due to acute congestive heart failure. Adynamic. Acute kidney injury: Creatinine 1.68 today. Likely due to aggressive diuresis. We will hold Lasix for now. Recheck renal function in the morning. Also Place Talavera catheter for monitoring and urine output. Diabetes mellitus type 2: Monitor blood sugars. Continue current insulin regimen. Diarrhea: Appears to be improved. Essential hypertension: Blood pressure has been on the lower side of normal. We will hold antihypertensives for systolic blood pressure less than 100. Patient did receive 250 mL of normal saline bolus With some improvement in his blood pressure. We will continue to monitor closely. ___ <Haley Haynes - Last Filed: 07/23/18 14:09> (3) COPD (chronic obstructive pulmonary disease) Qualifiers: COPD type: unspecified COPD Qualified Code(s): J44.9 - Chronic obstructive pulmonary disease, unspecified (4) Diabetes Qualifiers: Diabetes mellitus type: type 2 Diabetes mellitus longterm insulin use: without petroleum terminal plant operator use Diabetes mellitus complication status: without complication Qualified Code(s): E11.9 - Type 2 diabetes mellitus without complications (5) Hypertension Qualifiers: Hypertension type: unspecified Qualified Code(s): I10 - Essential (primary) hypertension <Ameda,Sraneudy - Last Filed: 07/23/18 15:05> (1) Diabetes Qualifiers: Diabetes mellitus type: type 2 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
[2018-07-23] MEDS ORDERED: Perflutren Lipid Microsphere 1.3 ML in 0.9 % Sodium Chloride 8.7 ML IVP ONE (11:41)
--- NOTE | 2018-07-23 14:20 | Cardiology Progress Note ---
Date of Encounter: 07/23/18 Time of Encounter: 12:00 Assessment and Plan (1) Acute on chronic systolic (congestive) heart failure Current Visit: Yes Status: Acute Patient with history of NICMP EF 40-45% diagnosed in 2012. Re-peat TTE shows EF 30-35%. Moderate MR. BNP 1882. Troponin 0.05, 0.04x2. Likely demand ischemia in the setting of CHF. Family reported non-compliance. Noted low b/p when lower dose home medication started. Pt is poor historian. CHF education reviewed. Low sodium diet stressed. Per home med list patient was on GDMT. Will decrease toprol XL at 25 mg. Add aceI if b/p allows in future. Continue IV lasix. Will check CXR and BNP to re-evaluate. Strict I&O and daily weights. (2) Cardiomyopathy Current Visit: Yes Status: Chronic H/o NICMP. [facility] 2012 showed non-obstructive CAD. Qualifiers: Cardiomyopathy type: ischemic Qualified Code(s): I25.5 - Ischemic cardiomyopathy (3) Atrial tachycardia Current Visit: Yes Status: Acute Intermittent atrial tachycardia seen. EKG was reviewed with Dr. Waterman and patient seen to have atrial tachycardia. Continue bb. (4) Chest pain Current Visit: Yes Status: Acute C/o intermittent atypical chest discomfort. Describes symptoms similar to GERD. Mild troponin elevation 0.05, 0.04 x4 in the setting of CHF. Non-diagnostic for ACS. H/o NICMP. TTE shows EF mildly reduced from previous. Patient with known non-compliance. Recommend continued diuresis for CHF. Can re-evaluate out-pt with ischemic eval once improved. Qualifiers: Chest pain type: unspecified Qualified Code(s): R07.9 - Chest pain, unspecified Discussion w patient/family: The assessment and plan as outlined above was discussed with the patient and/or family members who expressed understanding and agreement. All questions were answered. Thank you for involving us in the care of your patient. Please call with any questions. Subjective Principal diagnosis: DCHF Interval history: Mr. Marc c/o burning in his chest after eating. Primary team was notified and ordering something for heart burn. Repeat EKG ordered. He states he is breathing better. Objective Vital Signs, Last 4 Hours Temp Pulse Resp BP Pulse Ox 07/23/18 12:09 98.6 F 84 20 98/66 95 General: Conversant, No Apparent Distress HEENT: Atraumatic, Normocephaly, Mucus Membranes Moist Neck: No JVD, Normal carotid pulses Cardiac: Reg Rate and Rhythm, Normal S1 and S2, No Murmur Lungs: Normal Breath Sounds, No Wheeze, Rales, Rhonchi Neuro: Alert and responsive, No focal deficits noted Abdomen: Soft, Non-Tender Skin: No rashes noted on visualized skin Musculoskeletal: No Chest Wall Tenderness Extremities: No Clubbing, No Cyanosis, Normal Pulses, Other (1+ BLE edema) Results 07/23/18 06:52 07/23/18 06:52 Lab Results 07/22/18 07/23/18 07/23/18 13:45 06:52 06:52 WBC 11.2 H D Hgb 13.9 Hct 43.0 Plt Count 218 Sodium 136 Potassium 4.7 Chloride 104 Carbon Dioxide 20 L BUN 60 H Creatinine 1.68 H Glucose 146 H Calcium 9.2 Magnesium 1.9 Troponin I 0.04 H* - Imaging and Cardiology Echo: report reviewed Cardiac cath: report reviewed - EKG Interpretation EKG results cardiology: personally reviewed Consult Discharge Plan - Plan Referrals: Sherine Amezquita MD [Primary Care Provider] -
[2018-07-24] MEDS: *HR* Heparin 5,000 UNIT/ML VIAL SQ SCH ×3 (06:35→20:14)
[2018-07-24 06:54] LABS: Basophils % 0.2 %; Eosinophils # 0.1 K/mcL (0.0-0.6); Eosinophils % 0.6 %; Hematocrit 39.5 % (37.5-50.1); Immature Granulocytes % 0.3 % (0-4); Lymphocytes # 1.6 K/mcL (0.6-4.6); Lymphocytes % 17.3 %; Mean Corpuscular HGB Conc 32.9 g/dL (31.6-35.5); Mean Corpuscular Hemoglobin 30.2 pg (28.0-33.3); Mean Corpuscular Volume 91.9 fL (83.0-100.0); Mean Platelet Volume 11.1 fL (9.4-12.4); Monocytes # 0.7 K/mcL (0.0-1.3); Monocytes % 8.1 %; Neutrophils # 6.6 K/mcL (1.6-8.9); Platelet Count 184 K/mcL (140-400); Segmented Neutrophils % 73.5 %
[2018-07-24 07:15] LABS: Calcium 8.8 mg/dL (8.6-10.3); Potassium 4.5 mEq/L (3.5-5.1)
[2018-07-24] MEDS ORDERED: Metoprolol XL (24 HR) Succ 25 MG TAB.ER.24H PO SCH ×2 (09:00)
[2018-07-24] MEDS: Insulin LISPRO 300 UNITS/3 ML VIAL SQ SCH ×4 (09:06→21:36)
--- NOTE | 2018-07-24 09:45 | Internal Med Progress Note ---
<DallasHaley Modi - Last Filed: 07/24/18 11:13> Hospitalist Progress Note - Encounter Date of Encounter: 07/24/18 Time of Encounter: 08:00 - Subjective Interval History: Patient seen and examined at bedside. Pt sleeping comfortably with Bipap on upon my arrival. He states that he is not having any SOB, CP, abdominal pain. He r eports that he is comfortable. - Exam Vitals: Temp Pulse Resp BP Pulse Ox 97.5 F L 76 18 94/65 100 07/24/18 07:05 07/24/18 07:05 07/24/18 07:05 07/24/18 08:31 07/24/18 07:05 Exam: General: Alert and oriented . WD/WN In NAD. Skin: Normal color, no rash, no lesions. HEENT: EOMI, PERRLA, mucous membranes moist Cardiovascular: RRR, normal S1 & S2, no rubs, murmurs or gallops. Lungs: LCTAB, no cyanosis Abdomen: Obese, Soft, non-tender, no rigidity. BS present Extremities: trace pitting edema in the lower extr b/l. Neurological: alert, no acute deficits - Assessment and Plan (1) Acute on chronic systolic (congestive) heart failure Current Visit: Yes Status: Acute Assessment and Plan: EF 30-35% with severe global LV systolic dysfunction, moderate MR. Previous EF in 2013 was 40-45%. BNP 1882. Troponin 0.05, 0.04, 0.04. Likely demand ischemia in the setting of CHF. SOB improved. Pt currently on Bipap while sleeping, but does well on NC LCTAB UOP 07/23: 750 Pt reports medication non-compliance prior to admission Cardiology has been consulted, appreciate their recommendations. Plan: -Will hold lasix for now in setting of SHAREE, restart based on clinical picture -Strict intake and output -Water restriction to 1.5 litters a day. -Daily weight -2 gram sodium diet -Continue low dose beta-toni -Consider adding low dose ACEI if BP tolerates it. (2) SHAREE (acute kidney injury) Current Visit: Yes Status: Acute Assessment and Plan: SHAREE in the setting of AECHF with aggressive diueresis SCr 1.51, GFR 47 with baseline SCr in normal range Renal US: No evidence of hydronephrosis or intrarenal stones. Incidentally noted left lower pole renal cortical simple cyst. Abdominal and pelvic ascites. Plan: -Hold lasix for now -Strict I&O -Talavera -Continue to monitor renal function -Avoid nephrotoxins and renally dose medications (3) COPD (chronic obstructive pulmonary disease) Current Visit: Yes Status: Chronic Assessment and Plan: Not on acute exacerbation. LCTAB Plan: -Incentive spirometry -Bronchodilators PRN. (4) Diabetes Current Visit: Yes Status: Chronic Assessment and Plan: BS in the 160s-200s Plan: -Accuchecks ACHS -Continue SSI (5) Hypertension Current Visit: Yes Status: Chronic Assessment and Plan: Patient has been slightly hypotensive in the 90s systolic. Has increased to low 100s this AM. Currently asymptomatic Plan: -Hold metoprolol for SBP <100 -Consider midodrine or other agent based on Cardiology recs. -Continue to monitor - Time Spent with Patient Total time spent is greater than 50% in coordination of care (as documented) at patient's floor/unit and/or counseling patient: Internal Medicine: Result - Labs CBC & Chem 7: 07/24/18 06:22 07/24/18 06:22 Labs: Short CBC 07/24/18 Range/Units 06:22 WBC 9.0 (4.3-11.1) K/mcL Hgb 13.0 (12.9-16.9) g/dL Hct 39.5 (37.5-50.1) % Plt Count 184 (140-400) K/mcL Neutrophils # 6.6 (1.6-8.9) K/mcL BMP 07/24/18 06:22 Sodium 134 L Potassium 4.5 Chloride 104 Carbon Dioxide 20 L BUN 65 H Creatinine 1.51 H Glucose 133 H Calcium 8.8 - ABG Interpretation ABG results: ABG ABG pH 7.31 pH Units (7.32-7.45) L 07/23/18 01:41 ABG pCO2 42 mmHg (35-45) 07/23/18 01:41 ABG pO2 117 mmHg (85-104) H 07/23/18 01:41 ABG O2 Saturation 98 % (95-98) 07/23/18 01:41 - Impressions Impressions Abdomen/Pelvis CT 07/21/18 16:28 IMPRESSION: 1. No definite acute process in the abdomen or pelvis. 2. Small to moderate bilateral pleural effusions are present with bilateral lower lobe compressive atelectasis and a possible small amount of airspace consolidation. 3. A small amount of ascites and diffuse anasarca in the soft tissues are also present. Findings are overall suggestive of diffuse third-spacing of fluid. The liver is non-cirrhotic in appearance. D/ / 07/21/2018 17:44:57 Devon Donahue MD / [facility] Interpreting Provider: Devon Donahue MD Chest X-Ray 07/23/18 14:51 IMPRESSION: Cardiomegaly with increasing layering right pleural effusion and small stable left pleural effusion suggesting CHF. D/ / Javy Gagnon MD / Javy Gagnon MD Interpreting Provider: Javy Gagnon MD Retroperitoneum Ultrasound 07/23/18 15:00 IMPRESSION: No evidence of hydronephrosis or intrarenal stones. Incidentally noted left lower pole renal cortical simple cyst. Abdominal and pelvic ascites. D/ / Javy Gagnon MD / Javy Gagnon MD Interpreting Provider: Javy Gagnon MD Echocardiogram 07/23/18 15:18 Impressions: LVEF 30-35%. Severe global left ventricular systolic dysfunction. Mild left ventricular diastolic dysfunction. Mildly dilated left atrium. Moderate right ventricular hypokinesis. Moderate mitral regurgitation. Mild tricuspid regurgitation. Mild pulmonary hypertension. Left Ventricular Wall Motion: Rest Echo Findings The apex, apical inferior, mid inferior, basal inferior, apical anterior, mid anterior, basal anterior, apical septal, mid inferior septal, basal inferior septal, apical lateral, mid anterior lateral, basal anterior lateral, mid anterior septal, mid inferior lateral, basal anterior septal and basal inferior lateral gong were hypokinetic. Findings: Study Quality * Technically sub-optimal due to clinical status. ECG Findings * Sinus rhythm with BBB and frequent PVCs Left Ventricle * LVEF 30-35%. * Normal LV chamber size and wall thickness. * Severe global left ventricular systolic dysfunction. * Mild left ventricular diastolic dysfunction. * Atypical septal motion consistent with bundle branch block. Right Ventricle * Normal right ventricular structure. * Moderate right ventricular hypokinesis. Left Atrium * Mildly dilated left atrium. Right Atrium * Normal right atrial size. Interatrial Septum * Interatrial septum not well evaluated. * No evidence of PFO by color Doppler. Aortic Valve * Trileaflet aortic valve. * Mildly calcified aortic valve leaflets. * No aortic stenosis. * No aortic regurgitation. Mitral Valve * Normal mitral valve structure. * No mitral stenosis. * Moderate mitral regurgitation. Tricuspid Valve * Normal tricuspid valve structure. * No tricuspid stenosis. * Mild tricuspid regurgitation. * Estimated RVSP is 47 mmHg. * Estimated RA pressure is 8 mmHg. * Mild pulmonary hypertension. Pulmonic Valve * Pulmonic valve is not well visualized. * No pulmonic stenosis. * No pulmonic regurgitation. Aorta * Normally sized aortic root. Pericardium * The pericardium appears normal. * Appearance is consistent with a {type} mitral valve replacement. Function appears {function{. IVC * The IVC is not dilated. * < 50% respiratory change. Consult Discharge Plan - Plan Referrals: Sherine Amezquita MD [Primary Care Provider] - <Tg Morse - Last Filed: 07/24/18 13:15> Hospitalist Progress Note - Encounter Date of Encounter: 07/24/18 Time of Encounter: 09:50 - Exam Vitals: Temp Pulse Resp BP Pulse Ox 97.6 F 63 18 100/69 100 07/24/18 10:58 07/24/18 10:58 07/24/18 10:58 07/24/18 10:58 07/24/18 10:58 - Assessment and Plan (1) Diabetes Current Visit: Yes Status: Chronic (2) Acute on chronic systolic (congestive) heart failure Current Visit: Yes Status: Acute (3) Hypertension Current Visit: Yes Status: Chronic (4) COPD (chronic obstructive pulmonary disease) Current Visit: Yes Status: Chronic (5) Diarrhea Current Visit: Yes Status: Chronic - Time Spent with Patient Total time spent is greater than 50% in coordination of care (as documented) at patient's floor/unit and/or counseling patient: Internal Medicine: Result - Labs CBC & Chem 7: 07/24/18 06:22 07/24/18 06:22 Labs: Short CBC 07/24/18 Range/Units 06:22 WBC 9.0 (4.3-11.1) K/mcL Hgb 13.0 (12.9-16.9) g/dL Hct 39.5 (37.5-50.1) % Plt Count 184 (140-400) K/mcL Neutrophils # 6.6 (1.6-8.9) K/mcL BMP 07/24/18 06:22 Sodium 134 L Potassium 4.5 Chloride 104 Carbon Dioxide 20 L BUN 65 H Creatinine 1.51 H Glucose 133 H Calcium 8.8 - ABG Interpretation ABG results: ABG ABG pH 7.31 pH Units (7.32-7.45) L 07/23/18 01:41 ABG pCO2 42 mmHg (35-45) 07/23/18 01:41 ABG pO2 117 mmHg (85-104) H 07/23/18 01:41 ABG O2 Saturation 98 % (95-98) 07/23/18 01:41 - Impressions Impressions Abdomen/Pelvis CT 07/21/18 16:28 IMPRESSION: 1. No definite acute process in the abdomen or pelvis. 2. Small to moderate bilateral pleural effusions are present with bilateral lower lobe compressive atelectasis and a possible small amount of airspace consolidation. 3. A small amount of ascites and diffuse anasarca in the soft tissues are also present. Findings are overall suggestive of diffuse third-spacing of fluid. The liver is non-cirrhotic in appearance. D/ / 07/21/2018 17:44:57 Devon Donahue MD / [facility] Interpreting Provider: Devon Donahue MD Chest X-Ray 07/23/18 14:51 IMPRESSION: Cardiomegaly with increasing layering right pleural effusion and small stable left pleural effusion suggesting CHF. D/ / Javy Gagnon MD / Javy Gagnon MD Interpreting Provider: Javy Gagnon MD Retroperitoneum Ultrasound 07/23/18 15:00 IMPRESSION: No evidence of hydronephrosis or intrarenal stones. Incidentally noted left lower pole renal cortical simple cyst. Abdominal and pelvic ascites. D/ / Javy Gagnon MD / Javy Gagnon MD Interpreting Provider: Javy Gagnon MD Echocardiogram 07/23/18 15:18 Impressions: LVEF 30-35%. Severe global left ventricular systolic dysfunction. Mild left ventricular diastolic dysfunction. Mildly dilated left atrium. Moderate right ventricular hypokinesis. Moderate mitral regurgitation. Mild tricuspid regurgitation. Mild pulmonary hypertension. Left Ventricular Wall Motion: Rest Echo Findings The apex, apical inferior, mid inferior, basal inferior, apical anterior, mid anterior, basal anterior, apical septal, mid inferior septal, basal inferior septal, apical lateral, mid anterior lateral, basal anterior lateral, mid anterior septal, mid inferior lateral, basal anterior septal and basal inferior lateral gong were hypokinetic. Findings: Study Quality * Technically sub-optimal due to clinical status. ECG Findings * Sinus rhythm with BBB and frequent PVCs Left Ventricle * LVEF 30-35%. * Normal LV chamber size and wall thickness. * Severe global left ventricular systolic dysfunction. * Mild left ventricular diastolic dysfunction. * Atypical septal motion consistent with bundle branch block. Right Ventricle * Normal right ventricular structure. * Moderate right ventricular hypokinesis. Left Atrium * Mildly dilated left atrium. Right Atrium * Normal right atrial size. Interatrial Septum * Interatrial septum not well evaluated. * No evidence of PFO by color Doppler. Aortic Valve * Trileaflet aortic valve. * Mildly calcified aortic valve leaflets. * No aortic stenosis. * No aortic regurgitation. Mitral Valve * Normal mitral valve structure. * No mitral stenosis. * Moderate mitral regurgitation. Tricuspid Valve * Normal tricuspid valve structure. * No tricuspid stenosis. * Mild tricuspid regurgitation. * Estimated RVSP is 47 mmHg. * Estimated RA pressure is 8 mmHg. * Mild pulmonary hypertension. Pulmonic Valve * Pulmonic valve is not well visualized. * No pulmonic stenosis. * No pulmonic regurgitation. Aorta * Normally sized aortic root. Pericardium * The pericardium appears normal. * Appearance is consistent with a {type} mitral valve replacement. Function appears {function{. IVC * The IVC is not dilated. * < 50% respiratory change. - Attending Attestation I saw evaluated and examined this patient and my medical decision-making was reviewed with the Resident Physician, Haley Haynes. I agree with the documented findings, disposition and treatment plan as described except to any changes set forth below. We independently had [id number] contact with the patient. Patient feels better today. He has been taken off BiPAP and is eating breakfast with nasal cannula on. Denies any chest pain. Shortness of breath is improving. Talavera catheter unable to be placed yesterday. Patient remains incontinent. General: Patient is alert, moderate distress, oriented x 3 ENT: Mucous membranes moist Respiratory: Decreased breath sounds at both bases Cardiovascular: Regular rate and rhythm. s1 and s2 normal No clicks, rubs, gallops, or murmurs. Bilateral pedal edema improving. Abdomen: Abdomen is soft, nontender. Bowel sounds are present Musculoskeletal: Spontaneously moving all extremities Skin: warm, dry, intact. Neuro: Alert oriented x 3 normal cranial nerves, no focal deficits Acute on chronic systolic congestive heart failure: Treated with Lasix initially but Lasix currently held due to worsening renal function. Clinically patient is feeling better. Chest x-ray done yesterday shows cardiomegaly and layering right pleural effusion. Will restart her Lasix at a lower dose. We will consider thoracentesis for diagnostic purposes. Elevated troponin: Likely from demand ischemia due to acute congestive heart failure. Adynamic. 2-D echocardiogram shows EF of 30-35% with mild left ventricle and diastolic dysfunction. Acute kidney injury: Creatinine improving. 1.51 today. Hold Lasix for today and resume at a lower dose tomorrow Diabetes mellitus type 2: Monitor blood sugars. Continue current insulin regimen. Diarrhea: Resolved Essential hypertension: Patient remains slightly hypertensive. Continue to hold metoprolol. Gentle bolus as needed. COPD: Bronchodilators as needed. Moderate risk for complications. <Haley Haynes - Last Filed: 07/24/18 11:13> (3) COPD (chronic obstructive pulmonary disease) Qualifiers: COPD type: unspecified COPD Qualified Code(s): J44.9 - Chronic obstructive pulmonary disease, unspecified (4) Diabetes Qualifiers: Diabetes mellitus type: type 2 Diabetes mellitus long-term insulin use: without long-term use Diabetes mellitus complication status: without complication Qualified Code(s): E11.9 - Type 2 diabetes mellitus without complications (5) Hypertension Qualifiers: Hypertension type: unspecified Qualified Code(s): I10 - Essential (primary) hypertension <Tg Morse - Last Filed: 07/24/18 13:15> (1) Diabetes Qualifiers: Diabetes mellitus type: type 2 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
[2018-07-24] MEDS ORDERED: 0.9 % Sodium Chloride 250 ML IVC ONE (12:56)
--- NOTE | 2018-07-24 13:03 | Cardiology Progress Note ---
Date of Encounter: 07/24/18 Time of Encounter: 08:30 Assessment and Plan (1) Acute on chronic systolic (congestive) heart failure Current Visit: Yes Status: Acute Patient with history of NICMP EF 40-45% diagnosed in 2012. Re-peat TTE shows EF 30-35%. Moderate MR. BNP 1882. Troponin 0.05, 0.04x2. Likely demand ischemia in the setting of CHF. Family reported non-compliance. Noted low b/p when lower dose home medication started. Pt is poor historian. CHF education reviewed. Low sodium diet stressed. Per home med list patient was on GDMT. Will hold metoprolol secondary to hypotension and replace some fluid. Consider aceI and bb in future once b/p improves. Likely intravascularly vollume depleted. SCr increased with IV lasix and improved once held. CXR shows layered right pleural effusion despite diuresis. He would likely benefit from thora centesis. Recommend IR consult. Strict I&O and daily weights. Please call with questions. (2) Cardiomyopathy Current Visit: Yes Status: Chronic H/o NICMP. [facility] 2012 showed non-obstructive CAD. Qualifiers: Cardiomyopathy type: ischemic Qualified Code(s): I25.5 - Ischemic cardiomyopathy (3) Atrial tachycardia Current Visit: Yes Status: Acute Intermittent atrial tachycardia seen on admission. EKG was reviewed with Dr. Waterman and patient seen to have atrial tachycardia. HR now regular in the 80's. (4) Chest pain Current Visit: Yes Status: Acute C/o intermittent atypical chest discomfort. Describes symptoms similar to GERD. Mild troponin elevation 0.05, 0.04 x4 in the setting of CHF. Non-diagnostic for ACS. H/o NICMP. TTE shows EF mildly reduced from previous. Patient with known non- compliance. Recommend continued diuresis for CHF. Can re-evaluate out-pt with ischemic eval once CHF exaceration resolved. Qualifiers: Chest pain type: unspecified Qualified Code(s): R07.9 - Chest pain, unspecified Discussion w patient/family: The assessment and plan as outlined above was discussed with the patient and/or family members who expressed understanding and agreement. All questions were answered. Thank you for involving us in the care of your patient. Please call with any questions. Subjective Principal diagnosis: DCHF Interval history: Mr. Marc is resting quiety on bpap. Denies chest pain. Objective Vital Signs, Last 4 Hours Temp Pulse Resp BP Pulse Ox 07/24/18 10:58 97.6 F 63 18 100/69 100 General: No Apparent Distress HEENT: Atraumatic, Normocephaly, Mucus Membranes Moist Neck: No JVD, Normal carotid pulses Cardiac: Reg Rate and Rhythm, Normal S1 and S2, No Murmur, Other Lungs: Normal Breath Sounds, No Wheeze, Rales, Rhonchi Neuro: Alert and responsive, No focal deficits noted Abdomen: Soft, Non-Tender Skin: No rashes noted on visualized skin Musculoskeletal: No Chest Wall Tenderness Extremities: Other (Trace BLE edema.) Results 07/24/18 06:22 07/24/18 06:22 Lab Results 07/23/18 07/24/18 07/24/18 14:59 06:22 06:22 WBC 9.0 Hgb 13.0 Hct 39.5 Plt Count 184 Sodium 134 L Potassium 4.5 Chloride 104 Carbon Dioxide 20 L BUN 65 H Creatinine 1.51 H Glucose 133 H Calcium 8.8 B-Natriuretic Peptide 1376 H - Imaging and Cardiology Chest Xray: report reviewed Echo: report reviewed - EKG Interpretation EKG results cardiology: personally reviewed Consult Discharge Plan - Plan Referrals: Sherine Amezquita MD [Primary Care Provider] -
[2018-07-24] MEDS ORDERED: 0.9 % Sodium Chloride 500 ML IVC ONE (16:14)
[2018-07-24] MEDS ORDERED: 0.9 % Sodium Chloride 500 ML ONE (16:17)
[2018-07-24] MEDS ORDERED: 0.9 % Sodium Chloride 500 ML IVC SCH (21:00)
[2018-07-25] MEDS: *HR* Heparin 5,000 UNIT/ML VIAL SQ SCH ×3 (04:18→20:02)
[2018-07-25] MEDS: Insulin LISPRO 300 UNITS/3 ML VIAL SQ SCH ×4 (08:07→21:30)
[2018-07-25 08:28] LABS: BUN/Creatinine Ratio 51 (6-26); Blood Urea Nitrogen 71 mg/dL (8-23); Calcium 8.6 mg/dL (8.6-10.3); Carbon Dioxide 18 mEq/L (23-29); Chloride 103 mEq/L (98-107); Glucose 144 mg/dL (70-105); Osmolality,Calculated 297 (280-300); Potassium 4.3 mEq/L (3.5-5.1); Sodium 132 mEq/L (136-145); eGFR For Non-African Americans 51 (> 60)
--- NOTE | 2018-07-25 08:48 | Internal Med Progress Note ---
<Haley Haynes - Last Filed: 07/25/18 11:45> Hospitalist Progress Note - Encounter Date of Encounter: 07/25/18 Time of Encounter: 07:45 - Subjective Interval History: Patient seen and examined at bedside. Pt sitting up in bed to eat upon my arrival. He denies any worsening shortness of breath, chest pain, dizziness, abdominal pain. Reports that his breathing is unchanged from when he was admitted. He does report some swelling of his lower extremities. - Exam Vitals: Temp Pulse Resp BP Pulse Ox 98.6 F 80 16 96/63 97 07/25/18 07:34 07/25/18 07:34 07/25/18 07:34 07/25/18 07:34 07/25/18 07:34 Exam: General: Alert and oriented . WD/WN In NAD. Skin: Normal color, no rash, no lesions. HEENT: EOMI, PERRLA, mucous membranes moist Cardiovascular: Distant heart sounds, RRR, normal S1 & S2, no rubs, murmurs or gallops. Lungs: mild rales in right posterior lung, left clear, no wheezing or rhonchi no cyanosis Abdomen: Obese, Soft, non-tender, no rigidity. BS present Extremities: 1+ pitting edema in the lower extr b/l. Neurological: alert, no acute deficits - Assessment and Plan (1) Acute on chronic systolic (congestive) heart failure Current Visit: Yes Status: Acute Assessment and Plan: EF 30-35% with severe global LV systolic dysfunction, moderate MR. Previous EF in 2013 was 40-45%. BNP 1882. Troponin 0.05, 0.04, 0.04. Likely demand ischemia in the setting of CHF. SOB improved. Pt currently on Bipap while sleeping, but does well on NC mild rales in the base on the right Pt reports medication non-compliance prior to admission Cardiology has been consulted, appreciate their recommendations. Pt was hypotensive into the 70's systolic yesterday after 25mg metoprolol. He was given a 250cc bolus with minimal improvement. Metoprolol has been changed to 12.5mg daily. Plan: -Will encourage pt to sit up and work with PT, this may assist in improving BP -Will hold lasix for now in setting of SHAREE, restart based on clinical picture -CXR today to evaluate effusion -Strict intake and output -Water restriction to 1.5 litters a day. -Daily weight -2 gram sodium diet -Hold BB for now in setting of hypotension -Consider adding low dose ACEI if BP tolerates it. -Will run NS at 75cc until 2100 as pt may be intravascularly dry (2) SHAREE (acute kidney injury) Current Visit: Yes Status: Acute Assessment and Plan: SHAREE in the setting of AECHF with aggressive diueresis SCr 1.40, GFR 51 improved from 1.51, GFR 47 with baseline SCr in normal range Renal US: No evidence of hydronephrosis or intrarenal stones. Incidentally noted left lower pole renal cortical simple cyst. Abdominal and pelvic ascites. Plan: -Hold lasix for now -Strict I&O -Talavera -Continue to monitor renal function -Avoid nephrotoxins and renally dose medications (3) Hypertension Current Visit: Yes Status: Chronic Assessment and Plan: Patient has been slightly hypotensive in the 90s systolic during his stay. Yesterday SBP dropped to 70's after 25mg metoprolol. Has improved overnight to high 90's. Currently asymptomatic Per Cardio would avoid midodrine in setting of CAD Plan: - Will run NS at 75cc/hr until 2100 to see if this improves pressures -Hold metoprolol 12.5mg for SBP <100 -Continue to monitor (4) COPD (chronic obstructive pulmonary disease) Current Visit: Yes Status: Chronic Assessment and Plan: Not on acute exacerbation. Plan: -Incentive spirometry -Bronchodilators PRN. (5) Diabetes Current Visit: Yes Status: Chronic Assessment and Plan: BS in the 120s-150s Plan: -Accuchecks ACHS -Continue SSI DVT Prophylaxis: Heparin SQ. - Time Spent with Patient Total time spent is greater than 50% in coordination of care (as documented) at patient's floor/unit and/or counseling patient: Internal Medicine: Result - Labs CBC & Chem 7: 07/24/18 06:22 07/25/18 07:41 Labs: BMP 07/25/18 07:41 Sodium 132 L Potassium 4.3 Chloride 103 Carbon Dioxide 18 L BUN 71 H Creatinine 1.40 H Glucose 144 H Calcium 8.6 - ABG Interpretation ABG results: ABG ABG pH 7.31 pH Units (7.32-7.45) L 07/23/18 01:41 ABG pCO2 42 mmHg (35-45) 07/23/18 01:41 ABG pO2 117 mmHg (85-104) H 07/23/18 01:41 ABG O2 Saturation 98 % (95-98) 07/23/18 01:41 Consult Discharge Plan - Plan Referrals: Sherine Amezquita MD [Primary Care Provider] - <Tg Morse - Last Filed: 07/25/18 12:48> Hospitalist Progress Note - Encounter Date of Encounter: 07/25/18 Time of Encounter: 10:15 - Exam Vitals: Temp Pulse Resp BP Pulse Ox 97.5 F L 85 16 92/62 99 07/25/18 11:01 07/25/18 11:01 07/25/18 11:01 07/25/18 11:01 07/25/18 11:01 - Assessment and Plan (1) Diabetes Current Visit: Yes Status: Chronic (2) Acute on chronic systolic (congestive) heart failure Current Visit: Yes Status: Acute (3) Hypertension Current Visit: Yes Status: Chronic (4) COPD (chronic obstructive pulmonary disease) Current Visit: Yes Status: Chronic (5) Diarrhea Current Visit: Yes Status: Chronic - Time Spent with Patient Total time spent is greater than 50% in coordination of care (as documented) at patient's floor/unit and/or counseling patient: Internal Medicine: Result - Labs CBC & Chem 7: 07/24/18 06:22 07/25/18 07:41 Labs: BMP 07/25/18 07:41 Sodium 132 L Potassium 4.3 Chloride 103 Carbon Dioxide 18 L BUN 71 H Creatinine 1.40 H Glucose 144 H Calcium 8.6 - ABG Interpretation ABG results: ABG ABG pH 7.31 pH Units (7.32-7.45) L 07/23/18 01:41 ABG pCO2 42 mmHg (35-45) 07/23/18 01:41 ABG pO2 117 mmHg (85-104) H 07/23/18 01:41 ABG O2 Saturation 98 % (95-98) 07/23/18 01:41 - Attending Attestation I saw evaluated and examined this patient and my medical decision-making was reviewed with the Resident Physician, Haley Haynes. I agree with the documented findings, disposition and treatment plan as described except to any changes set forth below. We independently had [id number] contact with the patient. Patient is lying down in bed. Comfortable. Cooperative to examination. Denies any new complaints at this time. No chest pain or palpitations. Denies any dizziness or lightheadedness. His blood pressure has remained low. But he remains asymptomatic. General: Patient is alert, moderate distress, oriented x 3 ENT: Mucous membranes moist Respiratory: Decreased breath sounds at both bases Cardiovascular: Regular rate and rhythm. s1 and s2 normal No clicks, rubs, gallops, or murmurs. Mild pitting pedal edema bilaterally Abdomen: Abdomen is soft, nontender. Bowel sounds are present Musculoskeletal: Spontaneously moving all extremities Skin: warm, dry, intact. Neuro: Alert oriented x 3 normal cranial nerves, no focal deficits Acute on chronic systolic congestive heart failure: Patient responded well to Lasix initially. However his blood pressure has been low and as such Lasix has been held. Patient currently on 4 L nasal cannula and using BiPAP intermittently. Elevated troponin: Cardiology following. Possibly from demand ischemia. Acute kidney injury: Creatinine continues to improve. Will continue IV hydration at a slow rate. Diabetes mellitus type 2: Blood sugars are elevated today. Will place patient on long-acting insulin. Diarrhea: Resolved Hypotension: Patient's blood pressure has been running in the low 90s systolic. However he is asymptomatic. Could be from due to volume loss from aggressive diuresis. Will gently hydrate. Hold antihypertensive agents for now. COPD: Bronchodilators as needed. Moderate risk for complications. <Haley Haynes - Last Filed: 07/25/18 11:45> (3) Hypertension Qualifiers: Hypertension type: essential hypertension Qualified Code(s): I10 - Essential (primary) hypertension (4) COPD (chronic obstructive pulmonary disease) Qualifiers: COPD type: unspecified COPD Qualified Code(s): J44.9 - Chronic obstructive pulmonary disease, unspecified (5) Diabetes Qualifiers: Diabetes mellitus type: type 2 Diabetes mellitus jail insulin use: without jail use Diabetes mellitus complication status: without complication Qualified Code(s): E11.9 - Type 2 diabetes mellitus without complications <Tg Morse - Last Filed: 07/25/18 12:48> (1) Diabetes Qualifiers: Diabetes mellitus type: type 2 Diabetes mellitus jail insulin use: without moth exterminator use Diabetes mellitus complication status: without complication Qualified Code(s): E11.9 - Type 2 diabetes mellitus without complications (3) Hypertension Qualifiers: Hypertension type: essential hypertension Qualified Code(s): I10 - Essential (primary) hypertension (4) COPD (chronic obstructive pulmonary disease) Qualifiers: COPD type: unspecified COPD Qualified Code(s): J44.9 - Chronic obstructive pulmonary disease, unspecified (5) Diarrhea Qualifiers: Diarrhea type: unspecified type Qualified Code(s): R19.7 - Diarrhea, unspecified
[2018-07-25] MEDS ORDERED: 0.9 % Sodium Chloride 1,000 ML IVC SCH (10:00)
--- NOTE | 2018-07-25 10:29 | Cardiology Progress Note ---
Date of Encounter: 07/25/18 Time of Encounter: 10:27 Assessment and Plan (1) Acute on chronic systolic (congestive) heart failure Current Visit: Yes Status: Acute Patient with history of NICMP EF 40-45% diagnosed in 2012 presents with acute on chronic HFrEF. Re-peat TTE shows EF 30-35%. Moderate MR. BNP 1882. Troponin 0.05, 0.04x2. Likely demand ischemia in the setting of CHF. Family reported non-compliance. Noted low b/p when lower dose home medication started. Likely not taking medications. Pt is poor historian. CHF education reviewed. Low sodium diet stressed. Continue to hold hold metoprolol secondary to hypotension and replace some fluid. Consider aceI and bb in future once b/p improves. Likely continues to be intravascularly volume depleted. SCr increased with IV lasix and improved once held and IV fluid given. CXR shows layered right pleural effusion despite diuresis. Discussed with primary team. Pleural effusion is small and likely would not benefit from thoracentesis. Discussed with Dr. Barriga, would not start midodrine with history of CAD. Gentle IV fluid as needed. Re-peat CXR ordered for today. Strict I&O and daily weights. (2) Cardiomyopathy Current Visit: Yes Status: Acute H/o NICMP. [facility] [place] 2012 showed non-obstructive CAD. Qualifiers: Cardiomyopathy type: ischemic Qualified Code(s): I25.5 - Ischemic cardiomyopathy (3) Atrial tachycardia Current Visit: Yes Status: Acute Intermittent atrial tachycardia seen on admission. EKG was reviewed with Dr. Waterman and patient seen to have atrial tachycardia. HR now regular in the 80's. (4) Chest pain Current Visit: Yes Status: Acute C/o intermittent atypical chest discomfort. Describes symptoms similar to GERD. Mild troponin elevation 0.05, 0.04 x4 in the setting of CHF. Non-diagnostic for ACS. H/o NICMP. TTE shows EF mildly reduced from previous. Patient with known non- compliance. Recommend continued diuresis for CHF. Can re-evaluate out-pt with ischemic eval once CHF exaceration resolved. Qualifiers: Chest pain type: unspecified Qualified Code(s): R07.9 - Chest pain, unspecified Discussion w patient/family: The assessment and plan as outlined above was discussed with the patient and/or family members who expressed understanding and agreement. All questions were answered. Thank you for involving us in the care of your patient. Please call with any questions. Subjective Principal diagnosis: DCHF Interval history: Mr. Marc is resting quietly. C/o chest tightness with deep breaths. States SOB has improved. Objective Vital Signs, Last 4 Hours Temp Pulse Resp BP Pulse Ox 07/25/18 07:34 98.6 F 80 16 96/63 97 General: Conversant, No Apparent Distress HEENT: Atraumatic, Normocephaly, Mucus Membranes Moist Neck: No JVD, Normal carotid pulses Cardiac: Reg Rate and Rhythm, Normal S1 and S2, No Murmur Lungs: Normal Breath Sounds, No Wheeze, Rales, Rhonchi, Other (lung sounds diminished) Neuro: Alert and responsive, No focal deficits noted Abdomen: Soft, Non-Tender Skin: No rashes noted on visualized skin Musculoskeletal: No Chest Wall Tenderness Extremities: No Clubbing, No Cyanosis, No Edema, Normal Pulses, Other (Non-pitting edema in BLE ) Results 07/24/18 06:22 07/25/18 07:41 Lab Results 07/25/18 07:41 Sodium 132 L Potassium 4.3 Chloride 103 Carbon Dioxide 18 L BUN 71 H Creatinine 1.40 H Glucose 144 H Calcium 8.6 - Imaging and Cardiology Echo: report reviewed - EKG Interpretation EKG results cardiology: personally reviewed Consult Discharge Plan - Plan Referrals: Sherine Amezquita MD [Primary Care Provider] -
[2018-07-25] MEDS: Metoprolol XL (24 HR) Succ 25 MG TAB.ER.24H PO SCH (11:53)
--- NOTE | 2018-07-26 02:48 | Event Note ---
Date of Encounter: 07/26/18 Time of Encounter: 01:53 Notified by nurse of patient with run of vtach on tele per environmental monitoring technician. Assessed patient at bedside. Patient asymptomatic. Vitals stable. EKG obtained with no acute changes. Labs ordered. Nurse to notify of any changes. EKG and patient discussed with Dr Ambrosio.
[2018-07-26 03:24] LABS: BUN/Creatinine Ratio 53 (6-26); Blood Urea Nitrogen 64 mg/dL (8-23); Calcium 8.6 mg/dL (8.6-10.3); Carbon Dioxide 19 mEq/L (23-29); Chloride 103 mEq/L (98-107); Glucose 187 mg/dL (70-105); Magnesium 1.8 mg/dL (1.6-2.6); Osmolality,Calculated 295 (280-300); Potassium 4.1 mEq/L (3.5-5.1); Sodium 131 mEq/L (136-145); eGFR For Non-African Americans > 60 (> 60)
[2018-07-26 04:21] LABS: BUN/Creatinine Ratio 48 (6-26); Blood Urea Nitrogen 63 mg/dL (8-23); Calcium 8.6 mg/dL (8.6-10.3); Carbon Dioxide 21 mEq/L (23-29); Chloride 104 mEq/L (98-107); Glucose 185 mg/dL (70-105); Osmolality,Calculated 297 (280-300); Potassium 4.5 mEq/L (3.5-5.1); Sodium 132 mEq/L (136-145); eGFR For Non-African Americans 56 (> 60)
[2018-07-26] MEDS: *HR* Heparin 5,000 UNIT/ML VIAL SQ SCH ×3 (05:09→23:15)
[2018-07-26 07:09] LABS: Albumin 3.3 g/dL (3.5-5.7)
[2018-07-26] MEDS: Metoprolol XL (24 HR) Succ 25 MG TAB.ER.24H PO SCH ×3 (07:39→10:45)
[2018-07-26] MEDS: Insulin LISPRO 300 UNITS/3 ML VIAL SQ SCH ×3 (07:54→16:52)
--- NOTE | 2018-07-26 09:46 | Electrocardiograph Report ---
[address] [place] [address] Test Date: 2018-07-22 Pat Name: Justin Marc Department: 112 Room: 2A34 Gender: M Staffing And Scheduling Coordinator: : [id number] Requested By: Vaughn Rodriguez Order Number: [id number] Reading MD: Todd Ortiz Measurements Intervals [place] Rate: 80 P: 17 WV: 206 QRS: 25 QRSD: 108 T: 195 QT: 410 QTc: 446 Interpretive Statements SINUS RHYTHM WITH OCCASIONAL VENTRICULAR PREMATURE COMPLEXES LOW QRS VOLTAGE IN EXTREMITY LEADS POSSIBLE ANTERIOR MYOCARDIAL INFARCTION, OF INDETERMINATE AGE Electronically Signed On 07-26-2018 9:45:03 EST by Todd Ortiz
--- NOTE | 2018-07-26 09:49 | Internal Med Progress Note ---
<MinorlaloTg - Last Filed: 07/26/18 13:32> Hospitalist Progress Note - Encounter Date of Encounter: 07/26/18 Time of Encounter: 10:20 - Exam Vitals: Temp Pulse Resp BP Pulse Ox 97.5 F L 93 19 112/84 98 07/26/18 06:57 07/26/18 11:24 07/26/18 11:24 07/26/18 11:24 07/26/18 11:24 - Assessment and Plan (1) Acute on chronic systolic (congestive) heart failure Current Visit: Yes Status: Acute (2) Diabetes Current Visit: Yes Status: Chronic (3) Hypertension Current Visit: Yes Status: Chronic (4) COPD (chronic obstructive pulmonary disease) Current Visit: Yes Status: Chronic (5) Diarrhea Current Visit: Yes Status: Chronic - Time Spent with Patient Total time spent is greater than 50% in coordination of care (as documented) at patient's floor/unit and/or counseling patient: Internal Medicine: Result - Labs CBC & Chem 7: 07/24/18 06:22 07/26/18 03:50 Labs: BMP 07/26/18 07/26/18 02:54 03:50 Sodium 131 L 132 L Potassium 4.1 4.5 Chloride 103 104 Carbon Dioxide 19 L 21 L BUN 64 H 63 H Creatinine 1.21 1.30 Glucose 187 H 185 H Calcium 8.6 8.6 Liver Function 07/26/18 Range/Units 03:50 Albumin 3.3 L (3.5-5.7) g/dL - ABG Interpretation ABG results: ABG ABG pH 7.31 pH Units (7.32-7.45) L 07/23/18 01:41 ABG pCO2 42 mmHg (35-45) 07/23/18 01:41 ABG pO2 117 mmHg (85-104) H 07/23/18 01:41 ABG O2 Saturation 98 % (95-98) 07/23/18 01:41 - Impressions Impressions Chest X-Ray 07/25/18 09:50 IMPRESSION: Small right pleural effusion and overlying atelectasis is mildly improved. Small left pleural effusion and left basilar atelectasis is unchanged. D/ / 07/25/2018 13:42:16 Yulisa Waldrop MD / nery Interpreting Provider: Yulisa Waldrop MD Consult Discharge Plan - Plan Referrals: Sherine Amezquita MD [Primary Care Provider] - (Patient is going to [facility]) - Attending Attestation I saw evaluated and examined this patient and my medical decision-making was reviewed with the Resident Physician, Rajendra Mckeon. I agree with the documented findings, disposition and treatment plan as described except to any changes set forth below. We independently had [id number] contact with the patient. When I evaluated patient today, he was wearing BiPAP. Reports no chest pain. Feels better overall. Denies any fevers or chills overnight. Denies any dizziness or lightheadedness. General: Patient is alert, moderate distress, oriented x 3 ENT: BiPAP mask in place. Respiratory: Decreased breath sounds at both bases Cardiovascular: Regular rate and rhythm. s1 and s2 normal No clicks, rubs, gallops, or murmurs. Mild pitting pedal edema bilaterally Abdomen: Abdomen is soft, nontender. Bowel sounds are present Musculoskeletal: Spontaneously moving all extremities Skin: warm, dry, intact. Neuro: Alert oriented x 3 normal cranial nerves, no focal deficits Acute on chronic systolic congestive heart failure: Clinically doing better. Continue BiPAP use as needed. Continue to hold Lasix for now. Fluid restriction. Elevated troponin: Cardiology following. No additional workup planned at this time. Acute kidney injury: Resolving. We will stop IV fluids. Diabetes mellitus type 2: Blood sugars remain uncontrolled. Levemir 10 units twice a day ordered. Increase sliding scale coverage. Diarrhea: Resolved Hypotension: Improved. Likely due to volume depletion from aggressive diuresis. Resume Toprol-XL at 12.5 mg daily. Wide-complex tachycardia: Patient has no episode of nonsustained ventricular tachycardia that spontaneously subsided. Resume beta toni. COPD: Bronchodilators as needed. Use BiPAP as needed. Moderate risk for complications. <Rajendra Mckeon - Last Filed: 07/26/18 14:04> Hospitalist Progress Note - Encounter Date of Encounter: 07/26/18 Time of Encounter: 09:47 - Subjective Interval History: Patient seen and examined resting comfortably in bed wearing BiPAP. Patient had nonsustained run of V. tach this morning. Patient scheduled to receive metoprolol 12.5 mg by mouth this morning. His renal function continues to improve. - Exam Vitals: Temp Pulse Resp BP Pulse Ox 97.5 F L 88 18 102/70 94 07/26/18 06:57 07/26/18 06:57 07/26/18 06:57 07/26/18 06:57 07/26/18 08:07 Exam: General: Alert and oriented . WD/WN In NAD. Skin: Normal color, no rash, no lesions. HEENT: EOMI, PERRLA, mucous membranes moist Cardiovascular: Distant heart sounds, RRR, normal S1 & S2, no rubs, murmurs or gallops. Lungs: mild rales RLL, left clear, no wheezing or rhonchi no cyanosis, wearing BiPAP Abdomen: Obese, Soft, non-tender, no rigidity. BS present Extremities: 1+ pitting edema in the BLE Neurological: alert, no acute deficits - Assessment and Plan (1) Acute on chronic systolic (congestive) heart failure Current Visit: Yes Status: Acute Assessment and Plan: EF 30-35% with severe global LV systolic dysfunction, moderate MR. Previous EF in 2013 was 40-45%. BNP 1882. Troponin 0.05, 0.04, 0.04. Likely demand ischemia in the setting of CHF. Pt reports medication non-compliance prior to admission Cardiology has been consulted, appreciate their recommendations. Pt was hypotensive into the 70's systolic after 25mg metoprolol. He was given a 250cc bolus with minimal improvement. Metoprolol has been changed to 12.5mg daily. CXR showed small right pleural effusion and overlying atelectasis is mildly improved. Small left pleural effusion and left basilar atelectasis is unchanged. Plan: -Will encourage pt to sit up and work with PT, this may assist in improving BP -Will hold lasix for now in setting of SHAREE, possibly restart tomorrow based on clinical picture -Will perform bedside ultrasound to evaluate need for possible thoracentesis -Strict intake and output -Fluid restriction to 1.5 litters a day. -Daily weights -2 gram sodium diet -Consider adding low dose ACEI if BP stable. -SOB improved. Pt currently on Bipap while sleeping, but does well on NC (2) Hypertension Current Visit: Yes Status: Chronic (3) Wide-complex tachycardia Current Visit: Yes Status: Resolved Assessment and Plan: Telemetry showed 15 beat WCT. Likely NSVT. BB being restarted today. Keep potassium at 4.0 or above and magnesium at 2.0. Given magnesium today (4) SHAREE (acute kidney injury) Current Visit: Yes Status: Acute Assessment and Plan: History of present illness in the setting of diarrhea, hypovolemia, hypotension, and Lasix use SCr 1.40, GFR 51 improved from 1.21, with baseline SCr in normal range Renal US: No evidence of hydronephrosis or intrarenal stones. Incidentally noted left lower pole renal cortical simple cyst. Abdominal and pelvic ascites. Plan: -Hold lasix for now -Strict I&O -Talavera -Continue to monitor renal function -Avoid nephrotoxins and renally dose medications (5) Diarrhea Current Visit: Yes Status: Chronic Assessment and Plan: Resolved (6) Diabetes Current Visit: Yes Status: Chronic Assessment and Plan: A1C 6.4. Blood sugar uncontrolled on lispro low dose sliding scale. ADA diet. Plan: -Levemir 10 units twice a day ordered. -Accuchecks ACHS -Increased to medium dose SSI (7) COPD (chronic obstructive pulmonary disease) Current Visit: Yes Status: Chronic Assessment and Plan: Not on acute exacerbation. no wheezing on auscultation. Plan: Incentive spirometry, bronchodilators PRN. DVT Prophylaxis: Heparin subcutaneous - Time Spent with Patient Total time spent is greater than 50% in coordination of care (as documented) at patient's floor/unit and/or counseling patient: Internal Medicine: Result - Labs CBC & Chem 7: 07/24/18 06:22 07/26/18 03:50 Labs: BMP 07/26/18 07/26/18 02:54 03:50 Sodium 131 L 132 L Potassium 4.1 4.5 Chloride 103 104 Carbon Dioxide 19 L 21 L BUN 64 H 63 H Creatinine 1.21 1.30 Glucose 187 H 185 H Calcium 8.6 8.6 Liver Function 07/26/18 Range/Units 03:50 Albumin 3.3 L (3.5-5.7) g/dL - ABG Interpretation ABG results: ABG ABG pH 7.31 pH Units (7.32-7.45) L 07/23/18 01:41 ABG pCO2 42 mmHg (35-45) 07/23/18 01:41 ABG pO2 117 mmHg (85-104) H 07/23/18 01:41 ABG O2 Saturation 98 % (95-98) 07/23/18 01:41 - Pulse Oximetry Interpretation Digit-Finger Pulse Oximetry Readin (On 2 L O2 via nasal cannula) Actions taken: none - Impressions Impressions Chest X-Ray 07/25/18 09:50 IMPRESSION: Small right pleural effusion and overlying atelectasis is mildly improved. Small left pleural effusion and left basilar atelectasis is unchanged. D/ : / 07/25/2018 13:42:16 Yulisa Waldrop MD / nery Interpreting Provider: Yulisa Waldrop MD ___ <Tg Morse - Last Filed: 07/26/18 13:32> (2) Diabetes Qualifiers: Diabetes mellitus type: type 2 Diabetes mellitus senior living insulin use: witho ut senior living use Diabetes mellitus complication status: without complication Qualified Code(s): E11.9 - Type 2 diabetes mellitus without complications (3) Hypertension Qualifiers: Hypertension type: essential hypertension Qualified Code(s): I10 - Essential (primary) hypertension (4) COPD (chronic obstructive pulmonary disease) Qualifiers: COPD type: unspecified COPD Qualified Code(s): J44.9 - Chronic obstructive pulmonary disease, unspecified (5) Diarrhea Qualifiers: Diarrhea type: unspecified type Qualified Code(s): R19.7 - Diarrhea, unspecified <Rajendra Mckeon - Last Filed: 07/26/18 14:04> (2) Hypertension Qualifiers: Hypertension type: essential hypertension Qualified Code(s): I10 - Essential (primary) hypertension (5) Diarrhea Qualifiers: Diarrhea type: unspecified type Qualified Code(s): R19.7 - Diarrhea, unspecified (6) Diabetes Qualifiers: Diabetes mellitus type: type 2 Diabetes mellitus senior living insulin use: without senior living use Diabetes mellitus complication status: without complication Qualified Code(s): E11.9 - Type 2 diabetes mellitus without complications (7) COPD (chronic obstructive pulmonary disease) Qualifiers: COPD type: unspecified COPD Qualified Code(s): J44.9 - Chronic obstructive pulmonary disease, unspecified
--- NOTE | 2018-07-26 10:17 | Cardiology Progress Note ---
Date of Encounter: 07/26/18 Time of Encounter: 10:15 Assessment and Plan (1) Acute on chronic systolic (congestive) heart failure Current Visit: Yes Status: Acute Patient with history of NICMP EF 40-45% diagnosed in 2012 presents with acute on chronic HFrEF. Re-peat TTE shows EF 30-35%. (EF 25-30% in 2013) Moderate MR. BNP 1882. Troponin 0.05, 0.04x2. Likely demand ischemia in the setting of CHF. Family reported non-compliance. Noted low b/p when lower dose home medication started. Likely not taking medications. Pt is poor historian. CHF education reviewed. Low sodium diet stressed. Metoprolol held and IV fluid given for hypotension over past 48 hours. Patient felt to be intravascularly dry. B/p improved this morning. IV fluid stopped. Symptoms are stable. He was noted to have 15 beat run NSVT overnight. Agree with re-starting toprol xl as b/p allows. Parameters placed on toprol dose. CXR 07/25/18 showed small bilateral pleural effusions that are improved. No lasix at this time. Restart as needed. Continue to monitor Strict I&O and daily weights. (2) Cardiomyopathy Current Visit: Yes Status: Acute H/o NICMP. [facility] 2012 showed non-obstructive CAD. 40-50% stenosis in mLAD. Qualifiers: Cardiomyopathy type: ischemic Qualified Code(s): I25.5 - Ischemic cardiomyopathy (3) Atrial tachycardia Current Visit: Yes Status: Acute Intermittent atrial tachycardia seen on admission. EKG was reviewed with Dr. Waterman and patient seen to have atrial tachycardia. HR now regular in the 80's. (4) Chest pain Current Visit: Yes Status: Acute C/o intermittent atypical chest discomfort. Describes symptoms similar to GERD. Mild troponin elevation 0.05, 0.04 x4 in the setting of CHF. Non-diagnostic for ACS. H/o NICMP. TTE shows EF mildly reduced from previous. Patient with known non- compliance. Recommend continued treatment for CHF and restartng medications as b/p allows. Can re-evaluate out-pt with ischemic eval. Qualifiers: Chest pain type: unspecified Qualified Code(s): R07.9 - Chest pain, unspecified (5) Wide-complex tachycardia Current Visit: Yes Status: Acute Telemetry review showed 15 beat WCT. Likely NSVT. BB being restarted today. Keep potassium at 4.0 or above and magnesium at 2.0. Will give magnesium today for mg 1.8. Discussion w patient/family: The assessment and plan as outlined above was discussed with the patient and/or family members who expressed understanding and agreement. All questions were answered. Thank you for involving us in the care of your patient. Please call with any questions. Subjective Principal diagnosis: DCHF Interval history: Mr. Marc is resting quietly. He is laying flat with bipap on. Bipap ordered per primary team at night. Consider overnight pulse ox to determine if bipap needed at home. He denies chest pain. SOB unchanged. Objective Vital Signs, Last 4 Hours Temp Pulse Resp BP Pulse Ox 07/26/18 08:07 94 07/26/18 06:57 97.5 F L 88 18 102/70 99 General: Conversant, No Apparent Distress HEENT: Atraumatic, Normocephaly, Mucus Membranes Moist Neck: No JVD, Normal carotid pulses Cardiac: Reg Rate and Rhythm, Normal S1 and S2, No Murmur Lungs: Normal Breath Sounds, No Wheeze, Rales, Rhonchi Neuro: Alert and responsive, No focal deficits noted Abdomen: Soft, Non-Tender Skin: No rashes noted on visualized skin Musculoskeletal: No Chest Wall Tenderness Extremities: No Clubbing, No Cyanosis, Normal Pulses, Other (Non-pitting edema BLE.) Results 07/24/18 06:22 07/26/18 03:50 Lab Results 07/26/18 07/26/18 02:54 03:50 Sodium 131 L 132 L Potassium 4.1 4.5 Chloride 103 104 Carbon Dioxide 19 L 21 L BUN 64 H 63 H Creatinine 1.21 1.30 Glucose 187 H 185 H Calcium 8.6 8.6 Magnesium 1.8 - Imaging and Cardiology Echo: report reviewed - EKG Interpretation EKG results cardiology: personally reviewed Consult Discharge Plan - Plan Referrals: Sherine Amezquita MD [Primary Care Provider] -
[2018-07-26] MEDS ORDERED: Insulin LISPRO 300 UNITS/3 ML VIAL SQ SCH (13:40)
[2018-07-26] MEDS: Insulin DETEMIR 100 UNIT/ML X5UNITS SQ SCH ×2 (15:32→23:15)
[2018-07-27] MEDS: *HR* Heparin 5,000 UNIT/ML VIAL SQ SCH (06:15)
[2018-07-27 07:07] LABS: Hematocrit 41.1 % (37.5-50.1); Hemoglobin 13.4 g/dL (12.9-16.9); Mean Corpuscular HGB Conc 32.6 g/dL (31.6-35.5); Mean Platelet Volume 10.7 fL (9.4-12.4); Platelet Count 217 K/mcL (140-400); Red Blood Count 4.62 M/mcL (4.19-5.50); Red Cell Distribution Width 16.3 % (11.5-14.5)
[2018-07-27 07:22] LABS: BUN/Creatinine Ratio 62 (6-26); Blood Urea Nitrogen 56 mg/dL (8-23); Calcium 8.7 mg/dL (8.6-10.3); Carbon Dioxide 20 mEq/L (23-29); Chloride 105 mEq/L (98-107); Glucose 122 mg/dL (70-105); Magnesium 2.1 mg/dL (1.6-2.6); Osmolality,Calculated 291 (280-300); Potassium 4.5 mEq/L (3.5-5.1); Sodium 132 mEq/L (136-145); eGFR For Non-African Americans > 60 (> 60)
[2018-07-27 07:29] LABS: INR 1.2; Prothrombin Time 13.1 Seconds (9.4-12.1)
[2018-07-27] MEDS: Insulin LISPRO 300 UNITS/3 ML VIAL SQ SCH ×2 (07:53→11:27)
--- NOTE | 2018-07-27 08:52 | Internal Med Progress Note ---
Hospitalist Progress Note - Encounter Date of Encounter: 07/27/18 Time of Encounter: 08:46 - Subjective Interval History: Patient seen and examined at bedside. Pt laying in bed eating upon my arrival. He denies any worsening shortness of breath, chest pain, dizziness, abdominal pain. Reports that his breathing is better today. He has not been up at all. Patient's family in the room state he has not walked since October due to severe hip OA. - Exam Vitals: Temp Pulse Resp BP Pulse Ox 97.9 F 85 16 100/70 93 07/27/18 07:06 07/27/18 07:06 07/27/18 07:06 07/27/18 07:06 07/27/18 07:06 Exam: General: Alert and oriented . WD/WN In NAD. Skin: Normal color, no rash, no lesions. HEENT: EOMI, PERRLA, mucous membranes moist Cardiovascular: Distant heart sounds, RRR, normal S1 & S2, no rubs, murmurs or gallops. Lungs: mild rales RLL, left clear, no wheezing or rhonchi no cyanosis Abdomen: Obese, Soft, non-tender, no rigidity. BS present Extremities: trace pitting edema in the BLE Neurological: alert, no acute deficits - Assessment and Plan (1) Acute on chronic systolic (congestive) heart failure Current Visit: Yes Status: Acute Assessment and Plan: EF 30-35% with severe global LV systolic dysfunction, moderate MR. Previous EF in 2013 was 40-45%. BNP 1882. Troponin 0.05, 0.04, 0.04. Likely demand ischemia in the setting of CHF. Pt reports medication non-compliance prior to admission Cardiology has been consulted, appreciate their recommendations. CXR showed small right pleural effusion and overlying atelectasis is mildly improved. Small left pleural effusion and left basilar atelectasis is unchanged. Pt BP seems to have stablized. Plan: -Will encourage pt to sit up and work with PT, this may assist in improving BP -Restart lasix at 20mg PO daily -Will perform bedside ultrasound to evaluate need for possible thoracentesis -Strict intake and output -Fluid restriction to 1.5 litters a day. -Daily weights -2 gram sodium diet -Consider adding low dose ACEI if BP stable. (2) SHAREE (acute kidney injury) Current Visit: Yes Status: Resolved Assessment and Plan: Resolved (3) Hypertension Current Visit: Yes Status: Chronic Assessment and Plan: Pt BP improving. Plan: -Continue metoprolol 12.5mg daily (4) COPD (chronic obstructive pulmonary disease) Current Visit: Yes Status: Chronic Assessment and Plan: Not on acute exacerbation. no wheezing on auscultation. Plan: -Incentive spirometry -Bronchodilators PRN. -BiPAP at night (5) Diabetes Current Visit: Yes Status: Chronic Assessment and Plan: A1C 6.4. BS improving with addition of levemir Plan: -Continue Levemir 10 units twice a day. -Accuchecks ACHS -Continue medium dose SSI -ADA diet DVT Prophylaxis: Heparin subcutaneous - Time Spent with Patient Total time spent is greater than 50% in coordination of care (as documented) at patient's floor/unit and/or counseling patient: Internal Medicine: Result - Labs CBC & Chem 7: 07/27/18 06:14 07/27/18 06:14 Labs: Short CBC 07/27/18 Range/Units 06:14 WBC 8.9 (4.3-11.1) K/mcL Hgb 13.4 (12.9-16.9) g/dL Hct 41.1 (37.5-50.1) % Plt Count 217 (140-400) K/mcL BMP 07/27/18 06:14 Sodium 132 L Potassium 4.5 Chloride 105 Carbon Dioxide 20 L BUN 56 H Creatinine 0.90 Glucose 122 H Calcium 8.7 - ABG Interpretation ABG results: ABG ABG pH 7.31 pH Units (7.32-7.45) L 07/23/18 01:41 ABG pCO2 42 mmHg (35-45) 07/23/18 01:41 ABG pO2 117 mmHg (85-104) H 07/23/18 01:41 ABG O2 Saturation 98 % (95-98) 07/23/18 01:41 PT/INR, D-dimer PT 13.1 Seconds (9.4-12.1) H 07/27/18 06:14 Consult Discharge Plan - Plan Referrals: Sherine Amezquita MD [Primary Care Provider] - (Patient is going to [facility]) (3) Hypertension Qualifiers: Hypertension type: essential hypertension Qualified Code(s): I10 - Essential (primary) hypertension (4) COPD (chronic obstructive pulmonary disease) Qualifiers: COPD type: unspecified COPD Qualified Code(s): J44.9 - Chronic obstructive pulmonary disease, unspecified (5) Diabetes Qualifiers: Diabetes mellitus type: type 2 Diabetes mellitus copper plate 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
[2018-07-27] MEDS ORDERED: Furosemide 20 MG TABLET PO SCH (09:00)
[2018-07-27] MEDS: Metoprolol XL (24 HR) Succ 25 MG TAB.ER.24H PO SCH (09:16)
[2018-07-27] MEDS: Insulin DETEMIR 100 UNIT/ML X5UNITS SQ SCH (09:17)
--- NOTE | 2018-07-27 09:27 | Cardiology Progress Note ---
Date of Encounter: 07/27/18 Time of Encounter: 09:24 Assessment and Plan (1) Acute on chronic systolic (congestive) heart failure Current Visit: Yes Status: Acute Patient with history of NICMP EF 40-45% diagnosed in 2012 presents with acute on chronic HFrEF. Re-peat TTE shows EF 30-35%. (EF 25-30% in 2013) Moderate MR. BNP 1882. Troponin 0.05, 0.04x2. Likely demand ischemia in the setting of CHF. Family reported non-compliance. Noted low b/p when lower dose home medication started. Likely not taking medications. Pt is poor historian. Son said he never filled his meds. CHF education reviewed. Low sodium diet stressed. Reports eating a lot of canned foods at home. Metoprolol held and IV fluid given for hypotension after diuresis, felt to be intravascularly dry. Now closer to euvolemia. Toprol restarted yesterday and he is tolerating well. No recurrent VT seen. No significant fluid overload on exam. Symptoms are stable. CXR 07/25/18 showed small bilateral pleural effusions that are improved. Recommend starting lasix 20 mg PRN edema at d/c. Continue to monitor Strict I&O and daily weights. Close out-pt f/u will be coordinated with [facility]. Please call with questions. Cardiology will sign off. (2) Cardiomyopathy Current Visit: Yes Status: Acute H/o NICMP. [facility] 2012 showed non-obstructive CAD. 40-50% stenosis in mLAD. Will consider out-pt ischemic eval. Qualifiers: Cardiomyopathy type: ischemic Qualified Code(s): I25.5 - Ischemic cardiomyopathy (3) Atrial tachycardia Current Visit: Yes Status: Acute Intermittent atrial tachycardia seen on admission. EKG was reviewed with Dr. Waterman on admit and patient seen to have atrial tachycardia. HR now regular in the 80's. Patient has first degree block. No significant tachycardia seen in last 24 hours. (4) Chest pain Current Visit: Yes Status: Acute C/o intermittent atypical chest discomfort during stay. Describes symptoms similar to GERD. He is now chest pain free after treatment of CHF. Mild troponin elevation 0.05, 0.04 x4 in the setting of CHF. Non-diagnostic for ACS. H/o NICMP. TTE shows EF mildly reduced from previous. Patient with known non- compliance. Continue asa, statin, and bb. Can re-evaluate out-pt with ischemic eval. Qualifiers: Chest pain type: unspecified Qualified Code(s): R07.9 - Chest pain, unspecified (5) Wide-complex tachycardia Current Visit: Yes Status: Resolved Telemetry review showed 15 beat WCT 07/15/17, NSVT. Toprol xl given and magenesium replaced. No recurrent NSVT seen. Discussion w patient/family: The assessment and plan as outlined above was discussed with the patient and/or family members who expressed understanding and agreement. All questions were answered. Thank you for involving us in the care of your patient. Please call with any questions. Subjective Principal diagnosis: DCHF Interval history: Mr. Marc is resting quietly. He is laying flat on nasal cannula with no distress. He denies chest pain. Denies SOB. Family at bedside. Objective Vital Signs, Last 4 Hours Temp Pulse Resp BP Pulse Ox 07/27/18 07:06 97.9 F 85 16 100/70 93 General: Conversant, No Apparent Distress HEENT: Atraumatic, Normocephaly, Mucus Membranes Moist Neck: No JVD, Normal carotid pulses Cardiac: Reg Rate and Rhythm, Normal S1 and S2, No Murmur Lungs: Normal Breath Sounds, No Wheeze, Rales, Rhonchi Neuro: Alert and responsive, No focal deficits noted Abdomen: Soft, Non-Tender Skin: No rashes noted on visualized skin Musculoskeletal: No Chest Wall Tenderness Extremities: No Clubbing, No Cyanosis, No Edema, Normal Pulses, Other (Non-pi tting edema BLE.) Results 07/27/18 06:14 07/27/18 06:14 Lab Results 07/27/18 07/27/18 07/27/18 06:14 06:14 06:14 WBC 8.9 Hgb 13.4 Hct 41.1 Plt Count 217 INR 1.2 Sodium 132 L Potassium 4.5 Chloride 105 Carbon Dioxide 20 L BUN 56 H Creatinine 0.90 Glucose 122 H Calcium 8.7 Magnesium 2.1 - Imaging and Cardiology Echo: report reviewed - EKG Interpretation EKG results cardiology: personally reviewed Consult Discharge Plan - Plan Referrals: Sherine Amezquita MD [Primary Care Provider] - (Patient is going to [facility] [place])
[2018-07-27] MEDS ORDERED: Aspirin 81 MG TAB.CHEW PO SCH (09:40)
[2018-07-27 11:26] VITALS: BP 107/74
--- NOTE | 2018-07-27 11:28 | Discharge Summary ---
<LitoSummerdeidre - Last Filed: 07/27/18 12:24> Date of Encounter: 07/27/18 Time of Encounter: 12:25 - Discharge Diagnosis (1) Acute on chronic systolic (congestive) heart failure Priority: Primary Status: Acute (2) Diabetes Status: Chronic Qualifiers: Diabetes mellitus type: type 2 Diabetes mellitus certified medical dosimetrist insulin use: without certified medical dosimetrist use Diabetes mellitus complication status: without complication Qualified Code(s): E11.9 - Type 2 diabetes mellitus without complications (3) Hypertension Status: Chronic Qualifiers: Hypertension type: essential hypertension Qualified Code(s): I10 - Essential (primary) hypertension (4) COPD (chronic obstructive pulmonary disease) Status: Chronic Qualifiers: COPD type: unspecified COPD Qualified Code(s): J44.9 - Chronic obstructive pulmonary disease, unspecified (5) Diarrhea Status: Chronic Qualifiers: Diarrhea type: unspecified type Qualified Code(s): R19.7 - Diarrhea, unspecified (6) SHAREE (acute kidney injury) Status: Resolved (7) Wide-complex tachycardia Status: Resolved Hospital course: Mr. Marc is a 62 year old male Discharge discussed with: patient - Time Spent with Patient Total time spent providing and/or coordinating discharge services: Less than 30 minutes (10 min) - Discharge Medications Home Medications: Allopurinol [Zyloprim 300 MG] 300 mg PO DAILY 07/23/18 [History] Ezetimibe 10 mg PO DAILY 07/23/18 [History] Glimepiride [Amaryl] 2 mg PO BID 07/23/18 [History] Latanoprost [Xalatan] 2 drop BOTH EYES HS 07/23/18 [History] Metformin HCl [Glucophage] 1,000 mg PO BID 07/23/18 [History] Simvastatin [Zocor] 40 mg PO DAILY 07/23/18 [History] Aspirin 81 mg PO DAILY tab.chew 07/27/18 [Rx] Furosemide [Lasix] 20 mg PO DAILY tablet 07/27/18 [Rx] Metoprolol XL (24 HR) Succ [Toprol Xl] 12.5 mg PO DAILY tab.er.24h 07/27/18 [Rx] Nicotine Patch [Nicoderm] 21 mg TD DAILY PRN patch.td24 07/27/18 [Rx] Omeprazole [PriLOSEC] 20 mg PO DAILY@0730 capsule.dr 07/27/18 [Rx] Allergies/Adverse Reactions: Allergy/AdvReac Type Severity Reaction Status Date / Time No Known Allergies Allergy Verified 07/21/18 14:59 Date of admission: 07/22/18 10:33 Primary care physician: Sherine Amezquita Consults: 07/21/18 23:11 Consult to Cardiology [CONS] Routine Comment: Consulting Provider: Cardiology [place] Reason for Consult: NSTEMI, new onset atrial fibrillation, congestive heart failure. Call completed in the emergency room with Dr. Enrique Call Completed: Yes 07/22/18 09:22 Consult to Nurse Navigator [CONS] Routine Comment: new chf 07/22/18 12:35 Consult to Occupational Therapy [CONS] Routine Comment: Evaluate, develop and implement POC Reason for Consult: eval for ecf Does patient have active BEDREST order?: No Is patient medically & hemodynamically stable?: Yes Consult to Physical Therapy [CONS] Routine Comment: Evaluate, develop and implement POC Reason for Consult: eval for ecf Does patient have active BEDREST order?: No Is patient medically & hemodynamically stable?: Yes 07/23/18 08:12 Consult to Development Intern [CONS] Routine Reason for SW Consult: needs ecf - Constitutional Vitals: Temp Pulse Resp BP Pulse Ox 97.6 F 93 18 107/74 96 07/27/18 11:21 07/27/18 11:21 07/27/18 11:21 07/27/18 11:21 07/27/18 11:21 General appearance: Present: cooperative, A&O X 3, no acute distress, answers questions appropriately - Respiratory Respiratory exam: Present: decreased breath sounds (At both bases). Absent: accessory muscle use, rales, rhonchi, wheezes - Cardiovascular Cardiovascular exam: Present: RRR, +S1, +S2. Absent: diastolic murmur, gallop, rubs, systolic murmur - Extremities Exam Extremities exam: Present: pedal edema, warm, radial pulses palpable and symmetrical. Absent: calf tenderness, cyanotic - Neurological Exam Neurological exam: Present: alert, oriented X3, no focal deficits. Absent: facial droop, speech deficit - Patient Status Disposition: Transfer Inpatient Rehab Fac Condition: Good - Discharge Instructions Follow Up With: Sherine Amezquita MD [Primary Care Provider] - (Patient is going to [facility]) Alden Mcghee, PRODUCT SALES REPRESENTATIVE [Advanced Practice Nurse] - - Attending Attestation I saw evaluated and examined this patient and my medical decision-making was reviewed with the Resident Physician, Haley Haynes. I agree with the documented findings, disposition and treatment plan as described except to any changes set forth below. We independently had [id number] contact with the patient. Patient was hospitalized here with acute respiratory failure and hypoxia related to acute congestive heart failure. He was treated with IV Lasix and had good response to it. However his kidney function worsened and patient also became slightly hypotensive. As such Lasix was held. Patient's antihypertensive medications were also held and he received IV fluids at a slow rate. His symptoms have continued to improve while his blood pressure is also improved. He is now doing much better and is clinically stable for discharge. Patient has required BiPAP intermittently during his stay here. He probably has underlying undiagnosed obstructive sleep apnea and would benefit from sleep study and CPAP as outpatient. In the meantime, patient will be discharged to skilled rehabilitation. Would recommend using BiPAP as needed while he is at the [facility]. At this time he is being discharged on 12.5 mg of Toprol which he has tolerated well. He is also been placed on 20 mg of Lasix. Will need close monitoring his blood pressure and renal function. <Haley Haynes - Last Filed: 07/27/18 13:14> - NOTES TO OUTPATIENT PROVIDER Notes to Outpatient Provider: Only tolerating metoprolol 12.5mg daily. Will need BiPAP PRN. Date of Encounter: 07/27/18 Time of Encounter: 08:00 - Discharge Diagnosis (1) Acute on chronic systolic (congestive) heart failure Priority: Primary Status: Acute (2) SHAREE (acute kidney injury) Priority: Secondary Status: Resolved (3) Hypertension Priority: Secondary Status: Chronic Qualifiers: Hypertension type: essential hypertension Qualified Code(s): I10 - Essential (primary) hypertension (4) COPD (chronic obstructive pulmonary disease) Priority: Secondary Status: Chronic Qualifiers: COPD type: unspecified COPD Qualified Code(s): J44.9 - Chronic obstructive pulmonary disease, unspecified (5) Diabetes Priority: Secondary Status: Chronic Qualifiers: Diabetes mellitus type: type 2 Diabetes mellitus certified medical dosimetrist insulin use: without custodial use Diabetes mellitus complication status: without complication Qualified Code(s): E11.9 - Type 2 diabetes mellitus without complications Hospital course: Mr. Marc is a 62 year old male admitted to [facility] 07/21/18-07/27/18 with acute respiratory failure and hypoxia related to acute congestive heart failure. He was treated with IV Lasix and had good response to it. His kidney function worsened and he also became slightly hypotensive so the Lasix was held. His antihypertensive medications were also held and he received IV fluids at a slow rate. His symptoms have continued to improve while his blood pressure is also improved. He was also evaluated by Cardiology while he was here and was discharged on metoprolol 12.5mg daily. A referral for outpatient follow up with them has been made. He has required BiPAP intermittently during his stay here. He probably has underlying undiagnosed obstructive sleep apnea and would benefit from sleep study and CPAP as outpatient. He has been evaluated by PT/OT as he states he has not been walking since October 2017, and they are recommending that hel be discharged to skilled rehabilitation. Would recommend using BiPAP as needed while he is at the facility. At this time he is being discharged on 12.5 mg of Toprol which he has tolerated well. He is also been placed on 20 mg of Lasix daily. Will need close monitoring his blood pressure and renal function. He is now doing much better and is clinically stable for discharge. Discharge discussed with: patient, family, social work, case management - Time Spent with Patient Total time spent providing and/or coordinating discharge services: Date of admission: 07/22/18 10:33 Primary care physician: Sherine Amezquita Consults: 07/21/18 23:11 Consult to Cardiology [CONS] Routine Comment: Consulting Provider: Cardiology K[facility]ie Reason for Consult: NSTEMI, new onset atrial fibrillation, congestive heart failure. Call completed in the emergency room with Dr. Enrique Call Completed: Yes 07/22/18 09:22 Consult to Nurse Navigator [CONS] Routine Comment: new chf 07/22/18 12:35 Consult to Occupational Therapy [CONS] Routine Comment: Evaluate, develop and implement POC Reason for Consult: eval for ecf Does patient have active BEDREST order?: No Is patient medically & hemodynamically stable?: Yes Consult to Physical Therapy [CONS] Routine Comment: Evaluate, develop and implement POC Reason for Consult: eval for ecf Does patient have active BEDREST order?: No Is patient medically & hemodynamically stable?: Yes 07/23/18 08:12 Consult to Development Intern [CONS] Routine Reason for SW Consult: needs ecf Discharging clinician: Haley Haynes Anticipated date of discharge: 07/27/18 - Constitutional Vitals: Temp Pulse Resp BP Pulse Ox 97.9 F 85 16 100/70 93 07/27/18 07:06 07/27/18 07:06 07/27/18 07:06 07/27/18 07:06 07/27/18 07:06 General appearance: Present: cooperative, A&O X 3, pleasant, no acute distress, answers questions appropriately Exam: General: Alert and oriented . WD/WN In NAD. Skin: Normal color, no rash, no lesions. HEENT: EOMI, PERRLA, mucous membranes moist Cardiovascular: Distant heart sounds, RRR, normal S1 & S2, no rubs, murmurs or gallops. Lungs: mild rales RLL, left clear, no wheezing or rhonchi no cyanosis Abdomen: Obese, Soft, non-tender, no rigidity. BS present Extremities:trace pitting edema in the BLE Neurological: alert, no acute deficits - Patient Status Functional capacity at discharge: uses cane/walker Overall status at discharge: patient is progressing back to baseline - Diet and Activity Activity: as per physical therapy, other (Bipap prn) Diet: diabetic diet
--- NOTE | 2018-07-27 11:39 | Physician Discharge Referral ---
ExtendedCare Referral Info Transfer To: [place] Provider in Charge after Transfer: PCP Institutional Level of Care: Skilled - Diagnosis (1) Acute on chronic systolic (congestive) heart failure Priority: Primary Status: Acute (2) SHAREE (acute kidney injury) Priority: Secondary Status: Resolved (3) Hypertension Priority: Secondary Status: Chronic (4) COPD (chronic obstructive pulmonary disease) Priority: Secondary Status: Chronic (5) Diabetes Priority: Secondary Status: Chronic Prognosis: Fair - Transfer Medications Home Medications: Allopurinol [Zyloprim 300 MG] 300 mg PO DAILY 07/23/18 [History] Ezetimibe 10 mg PO DAILY 07/23/18 [History] Glimepiride [Amaryl] 2 mg PO BID 07/23/18 [History] Latanoprost [Xalatan] 2 drop BOTH EYES HS 07/23/18 [History] Metformin HCl [Glucophage] 1,000 mg PO BID 07/23/18 [History] Simvastatin [Zocor] 40 mg PO DAILY 07/23/18 [History] Aspirin 81 mg PO DAILY tab.chew 07/27/18 [Rx] Furosemide [Lasix] 20 mg PO DAILY tablet 07/27/18 [Rx] Metoprolol XL (24 HR) Succ [Toprol Xl] 12.5 mg PO DAILY tab.er.24h 07/27/18 [Rx] Nicotine Patch [Nicoderm] 21 mg TD DAILY PRN patch.td24 07/27/18 [Rx] Omeprazole [PriLOSEC] 20 mg PO DAILY@0730 capsule.dr 07/27/18 [Rx] Allergies/Adverse Reactions: Allergy/AdvReac Type Severity Reaction Status Date / Time No Known Allergies Allergy Verified 07/21/18 14:59 - Respiratory Orders Oxygen / L per min (Bipap PRN) Smoking Cessation: Smoking cessation has been advised. For more information, call the [place] Tobacco Quit Line at 5-796-KXIE-NOW. - Advance Directives Code Status: Full Code - Mobility Orders Ambulate - Rehabiliation Orders Rehab Potential: Good Rehab Orders: Evaluation for Physical Therapy, Evaluation for Occupational Therapy - Diet Orders Cardiac (2gram sodium restriction, 1.5 L fluid restriction, DM diet) CERTIFICATION: I certify that the transfer of the above named patient to an Extended Care Facility is necessary for the continuing treatment of the diagnosis listed. The above information is true and accurate reflection of patient's current condition. Confidential - Redisclosure prohibited without a patient's written consent.
--- NOTE | 2018-07-27 17:46 | Electrocardiograph Report ---
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
== END 2018-07-27 15:05 | DRG 291 ==
LOC: 2ANU 14:57 → EMEROOARM 14:57 → 2ANU 22:05 → SUATTDRO 07-22 10:33
PROVIDERS: ADMIT Hospitalist; ATTEND Internal Medicine

== ENCOUNTER 2021-05-22 17:09 | Inpatient (IN) ==
[2021-05-22 19:45] LABS: Basophils # 0.1 K/mcL (0.0-0.2); Basophils % 0.5 %; Eosinophils # 0.1 K/mcL (0.0-0.6); Eosinophils % 0.9 %; Hematocrit 51.3 % (37.5-50.1); Hemoglobin 15.7 g/dL (12.9-16.9); Immature Granulocytes % 0.4 % (0-4); Lymphocytes # 1.3 K/mcL (0.6-4.6); Lymphocytes % 13.7 %; Mean Corpuscular HGB Conc 30.6 g/dL (31.6-35.5); Mean Corpuscular Hemoglobin 28.6 pg (28.0-33.3); Mean Corpuscular Volume 93.6 fL (83.0-100.0); Mean Platelet Volume 10.7 fL (9.4-12.4); Monocytes # 0.7 K/mcL (0.0-1.3); Monocytes % 7.7 %; Platelet Count 277 K/mcL (140-400); Red Blood Count 5.48 M/mcL (4.19-5.50); Red Cell Distribution Width 18.7 % (11.5-14.5); Segmented Neutrophils % 76.8 %; White Blood Count 9.1 K/mcL (4.3-11.1)
[2021-05-22 20:54] LABS: Calcium 9.2 mg/dL (8.6-10.3); Potassium 5.1 mEq/L (3.5-5.1)
[2021-05-22 20:58] LABS: Troponin I 0.18 ng/mL (< 0.04)
[2021-05-22] MEDS ORDERED: Aspirin 81 MG TAB.CHEW PO STA (21:00)
[2021-05-22 21:22] LABS: Bacteria,Urine Few per hpf (None-Few); Bilirubin,Urine Moderate (Negative); Blood,Urine Moderate (Negative); Clarity,Urine Turbid (Clear); Color,Urine Dark-Yellow (Yellow); Glucose,Urine (UA) Normal (Normal); Granular Casts,Urine Few per lpf (None Seen); Hyaline Casts,Urine Many per lpf (None Seen); Ketones,Urine 10 mg/dL (Negative); Leukocyte Esterase,Urine Negative (Negative); Mucus,Urine Few per lpf (None-Few); Nitrite,Urine Negative (Negative); Protein,Urine >=600 mg/dL (Neg-Trace); Specific Gravity,Urine > 1.030 (1.010-1.025); Squamous Epithelial Cell,Urine Few per hpf (None-Few)
[2021-05-22] MEDS ORDERED: Furosemide 40 MG/4 ML VIAL IVP ONE (21:49)
[2021-05-22] MEDS ORDERED: Naloxone 0.4 MG/ML INJ IVP PRN (22:47)
[2021-05-22] MEDS ORDERED: MOM Conc 10 ML UD.LIQ PO PRN (22:47)
[2021-05-22 23:32] LABS: Magnesium 1.8 mg/dL (1.6-2.6); Phosphorous 3.4 mg/dL (2.7-4.5)
[2021-05-23] MEDS ORDERED: Perflutren Lipid Microsphere 1.3 ML in 0.9 % Sodium Chloride 8.7 ML IVP PRN (02:07)
[2021-05-23] MEDS ORDERED: D5% in Water 1,000 ML IVC PRN (02:24)
[2021-05-23] MEDS ORDERED: *HR* Dextrose 50 % in Water (Syg) 50 ML SYRINGE IVP PRN (02:24)
[2021-05-23] MEDS ORDERED: Dextrose Gel 15 GM/37.5 ML TUBE PO PRN ×2 (02:24)
[2021-05-23] MEDS: Acetaminophen 325 MG TABLET PO PRN ×2 (02:27→16:12)
[2021-05-23 02:56] LABS: Basophils # 0.1 K/mcL (0.0-0.2); Basophils % 0.7 %; Eosinophils # 0.1 K/mcL (0.0-0.6); Hematocrit 44.6 % (37.5-50.1); Hemoglobin 14.2 g/dL (12.9-16.9); Immature Granulocytes % 0.5 % (0-4); Lymphocytes # 1.4 K/mcL (0.6-4.6); Mean Corpuscular HGB Conc 31.8 g/dL (31.6-35.5); Mean Corpuscular Hemoglobin 28.6 pg (28.0-33.3); Mean Corpuscular Volume 89.9 fL (83.0-100.0); Mean Platelet Volume 10.9 fL (9.4-12.4); Monocytes % 10.6 %; Neutrophils # 6.9 K/mcL (1.6-8.9); Platelet Count 262 K/mcL (140-400); Red Blood Count 4.96 M/mcL (4.19-5.50); Red Cell Distribution Width 18.4 % (11.5-14.5); Segmented Neutrophils % 72.2 %; White Blood Count 9.5 K/mcL (4.3-11.1)
[2021-05-23 03:12] LABS: Albumin 3.7 g/dL (3.5-5.7); Albumin/Globulin Ratio 1.4 (1.1-2.2); Bilirubin,Direct 0.6 mg/dL (0.0-0.2); Bilirubin,Indirect 0.7 mg/dL (0.0-1.0); Bilirubin,Total 1.3 mg/dL (0.3-1.0); Globulin 2.6 g/dL (2.4-3.5); Total Protein 6.3 g/dL (6.4-8.9)
[2021-05-23 03:13] LABS: Calcium 8.9 mg/dL (8.6-10.3); Potassium 4.1 mEq/L (3.5-5.1)
[2021-05-23 04:02] LABS: Hepatitis B Surface Antigen Nonreactive (Nonreactive)
[2021-05-23 04:31] LABS: Hepatitis C Virus Antibody Nonreactive (Nonreactive)
[2021-05-23 04:32] LABS: HIV-1&2 Antibody & p24 Ag Nonreactive (Nonreactive); Hepatitis A Antibody IgM Nonreactive (Nonreactive); Hepatitis B Core IgM Nonreactive (Nonreactive)
[2021-05-23] MEDS: Ipratropium/Albuterol Neb 3 ML IH SCH ×3 (04:36→12:15)
[2021-05-23 04:40] LABS: Bacteria,Urine Few per hpf (None-Few); Bilirubin,Urine Negative (Negative); Blood,Urine Small (Negative); Clarity,Urine Clear (Clear); Color,Urine Light-Yellow (Yellow); Glucose,Urine (UA) Normal (Normal); Hyaline Casts,Urine Few per lpf (None Seen); Ketones,Urine Negative (Negative); Leukocyte Esterase,Urine Negative (Negative); Mucus,Urine Few per lpf (None-Few); Nitrite,Urine Negative (Negative); Protein,Urine 200 mg/dL (Neg-Trace); RBC,Urine 0-3 per hpf (0-3); Specific Gravity,Urine 1.013 (1.010-1.025); Urobilinogen,Urine Normal (Normal); WBC,Urine 0-3 per hpf (0-3)
[2021-05-23 04:58] LABS: Protein/Creatinine Ratio,Urine 3.65 mg/mg (0.00-0.20); Sodium, Urine 36.2 mEq/L
[2021-05-23] MEDS ORDERED: *HR* Heparin 5,000 UNIT/ML VIAL SQ SCH (06:00)
[2021-05-23] MEDS ORDERED: *HR* Heparin 5,000 UNIT/ML VIAL IVP ONE (06:38)
[2021-05-23] MEDS ORDERED: *HR* Heparin 5,000 UNIT/ML VIAL IVP PRN ×2 (06:38)
[2021-05-23] MEDS ORDERED: Heparin 25,000 UNIT/250 ML 25,000 UNIT/250 ML IV.SOLN IVC SCH (06:45)
[2021-05-23] MEDS: Insulin LISPRO 300 UNITS/3 ML VIAL SUBQ SCH ×3 (07:14→16:12)
[2021-05-23] MEDS: Metoprolol XL (24 HR) Succ 50 MG TAB.ER.24H PO SCH (07:37)
[2021-05-23] MEDS ORDERED: Furosemide 40 MG/4 ML VIAL IVP SCH (08:00)
[2021-05-23] MEDS: Heparin 25,000 UNIT/250 ML 25,000 UNIT/250 ML IV.SOLN IVC SCH (08:15)
[2021-05-23 08:35] LABS: INR 1.6; Prothrombin Time 17.7 Seconds (9.4-12.1)
[2021-05-23 08:38] LABS: Heparin anti-factor XA UFH < 0.04 IU/mL (0.30-0.70)
[2021-05-23] MEDS ORDERED: Aspirin 81 MG TAB.CHEW PO SCH (09:00)
[2021-05-23] MEDS ORDERED: traZODone 50 MG TABLET PO PRN (12:34)
[2021-05-23] MEDS: *HR* Amiodarone 200 MG TABLET PO SCH (13:34)
[2021-05-23] MEDS: Doxycycline 100 MG CAPSULE PO SCH ×2 (13:34→20:18)
[2021-05-23] MEDS: Latanoprost 2.5 ML BOTTLE BOTH EYES SCH (20:19)
[2021-05-23] MEDS ORDERED: NON-FORMULARY MEDICATION 1 EACH EACH (Atorvastatin Calcium 80 MG Tablet) PO SCH (21:00)
[2021-05-23] MEDS ORDERED: Insulin DETEMIR 100 UNIT/ML X5UNITS SUBQ SCH (21:00)
[2021-05-23] MEDS: Benzonatate 100 MG CAPSULE PO PRN (21:42)
[2021-05-24] MEDS: Melatonin 3 MG TABLET PO PRN (00:16)
[2021-05-24 01:53] LABS: Basophils # 0.1 K/mcL (0.0-0.2); Basophils % 0.6 %; Eosinophils % 0.3 %; Hematocrit 45.4 % (37.5-50.1); Hemoglobin 14.6 g/dL (12.9-16.9); Immature Granulocytes % 0.5 % (0-4); Lymphocytes % 10.1 %; Mean Corpuscular HGB Conc 32.2 g/dL (31.6-35.5); Mean Corpuscular Hemoglobin 28.7 pg (28.0-33.3); Mean Corpuscular Volume 89.4 fL (83.0-100.0); Mean Platelet Volume 10.7 fL (9.4-12.4); Monocytes # 0.9 K/mcL (0.0-1.3); Monocytes % 9.8 %; Neutrophils # 7.6 K/mcL (1.6-8.9); Platelet Count 251 K/mcL (140-400); Red Blood Count 5.08 M/mcL (4.19-5.50); Red Cell Distribution Width 17.9 % (11.5-14.5); Segmented Neutrophils % 78.7 %; White Blood Count 9.6 K/mcL (4.3-11.1)
[2021-05-24 02:13] LABS: Potassium 4.2 mEq/L (3.5-5.1)
[2021-05-24 02:14] LABS: Albumin 3.8 g/dL (3.5-5.7); Albumin/Globulin Ratio 1.4 (1.1-2.2); Bilirubin,Direct 0.4 mg/dL (0.0-0.2); Bilirubin,Total 1.4 mg/dL (0.3-1.0); Globulin 2.7 g/dL (2.4-3.5); Total Protein 6.5 g/dL (6.4-8.9)
[2021-05-24] MEDS: Levothyroxine 25 MCG TABLET PO SCH (06:18)
[2021-05-24] MEDS: Doxycycline 100 MG CAPSULE PO SCH ×2 (08:06→20:16)
[2021-05-24] MEDS: *HR* Amiodarone 200 MG TABLET PO SCH (08:06)
[2021-05-24] MEDS: Insulin LISPRO 300 UNITS/3 ML VIAL SUBQ SCH ×3 (08:06→19:37)
[2021-05-24] MEDS: Metoprolol XL (24 HR) Succ 50 MG TAB.ER.24H PO SCH (08:06)
[2021-05-24] MEDS: Heparin 25,000 UNIT/250 ML 25,000 UNIT/250 ML IV.SOLN IVC SCH (08:30)
[2021-05-24 08:52] LABS: Troponin I 0.22 ng/mL (< 0.04)
[2021-05-24] MEDS ORDERED: lisinopriL 5 MG TABLET PO SCH (09:00)
[2021-05-24] MEDS ORDERED: Furosemide 40 MG/4 ML VIAL IVP SCH (09:00)
[2021-05-24] MEDS ORDERED: Acetaminophen 325 MG TABLET PO ONE (10:45)
[2021-05-24] MEDS ORDERED: 0.9 % Sodium Chloride 250 ML IVC ONE (15:23)
[2021-05-24] MEDS ORDERED: 0.9 % Sodium Chloride 1,000 ML ONE (16:15)
[2021-05-24 16:31] LABS: Hematocrit 56.6 % (37.5-50.1)
[2021-05-24 16:35] LABS: Hemoglobin 17.5 g/dL (12.9-16.9)
[2021-05-24] MEDS ORDERED: Ringers Solution, Lactated 250 ML IVC PRN (17:00)
[2021-05-24] MEDS ORDERED: Norepinephrine 4 MG/254 ML IV.SOLN IVC SCH (17:00)
[2021-05-24] MEDS ORDERED: Ringers Solution, Lactated 1,000 ML ONE (17:02)
[2021-05-24] MEDS: Norepinephrine 4 MG/254 ML IV.SOLN IVC SCH ×2 (17:26→23:44)
[2021-05-24] MEDS: Piperacillin/Tazobactam 3.375 GM in 0.9 % Sodium Chloride Mini Bag 100 ML IVPB SCH (20:15)
[2021-05-24] MEDS: Albumin Human 5% 12.5 GM/250 ML IV.SOLN IVC SCH (20:16)
[2021-05-24] MEDS: Pantoprazole 40 MG VIAL IVP SCH (20:21)
[2021-05-24] MEDS: Latanoprost 2.5 ML BOTTLE BOTH EYES SCH (20:28)
[2021-05-24 20:46] LABS: VBG Ionized Calcium 0.89 mmol/L (1.15-1.35)
[2021-05-24] MEDS ORDERED: Apixaban 5 MG TABLET PO SCH (21:00)
[2021-05-24] MEDS ORDERED: Calcium Chloride 2,000 MG in 0.9 % Sodium Chloride 100 ML IVPB ONE (21:15)
[2021-05-24 21:58] LABS: Calcium 8.5 mg/dL (8.6-10.3); Magnesium 1.9 mg/dL (1.6-2.6)
[2021-05-24] MEDS: Sodium Bicarbonate 150 MEQ in Water for inj. (sterile) 1,000 ML IVC SCH (22:44)
[2021-05-25] MEDS ORDERED: Vancomycin 1,500 MG/265 ML IV.SOLN IVPB ONE
[2021-05-25] MEDS: Albumin Human 5% 12.5 GM/250 ML IV.SOLN IVC SCH (00:18)
[2021-05-25 04:06] LABS: VBG Ionized Calcium 1.04 mmol/L (1.15-1.35)
[2021-05-25 04:15] LABS: Basophils % 0.1 %; Hematocrit 41.1 % (37.5-50.1); Hemoglobin 13.3 g/dL (12.9-16.9); Lymphocytes # 0.6 K/mcL (0.6-4.6); Lymphocytes % 3.1 %; Mean Corpuscular HGB Conc 32.4 g/dL (31.6-35.5); Mean Corpuscular Hemoglobin 29.6 pg (28.0-33.3); Mean Corpuscular Volume 91.5 fL (83.0-100.0); Mean Platelet Volume 11.3 fL (9.4-12.4); Monocytes # 1.3 K/mcL (0.0-1.3); Monocytes % 6.9 %; Neutrophils # 17.2 K/mcL (1.6-8.9); Platelet Count 169 K/mcL (140-400); Red Blood Count 4.49 M/mcL (4.19-5.50); Red Cell Distribution Width 17.8 % (11.5-14.5); Segmented Neutrophils % 88.9 %; White Blood Count 19.3 K/mcL (4.3-11.1)
[2021-05-25] MEDS: Ondansetron 4 MG/2 ML VIAL IVP PRN ×3 (04:31→22:32)
[2021-05-25 04:52] LABS: Alanine Aminotransferase 2954 Units/L (7-52); Albumin 3.5 g/dL (3.5-5.7); Albumin/Globulin Ratio 1.8 (1.1-2.2); Alkaline Phosphatase 46 Units/L (34-104); Aspartate Amino Transferase > 3000 Units/L (13-39); BUN/Creatinine Ratio 19 (6-26); Bilirubin,Direct 1.8 mg/dL (0.0-0.2); Bilirubin,Indirect 0.9 mg/dL (0.0-1.0); Bilirubin,Total 2.7 mg/dL (0.3-1.0); Blood Urea Nitrogen 68 mg/dL (8-23); Calcium 8.9 mg/dL (8.6-10.3); Carbon Dioxide 16 mEq/L (23-29); Chloride 103 mEq/L (98-107); Glucose 138 mg/dL (70-105); Magnesium 1.7 mg/dL (1.6-2.6); Osmolality,Calculated 306 (280-300); Potassium 5.5 mEq/L (3.5-5.1); Sodium 137 mEq/L (136-145); Total Protein 5.5 g/dL (6.4-8.9); eGFR For African Americans 20 (> 60); eGFR For Non-African Americans 17 (> 60)
[2021-05-25] MEDS: Piperacillin/Tazobactam 3.375 GM in 0.9 % Sodium Chloride Mini Bag 100 ML IVPB SCH ×2 (05:40→17:02)
[2021-05-25] MEDS: Levothyroxine 25 MCG TABLET PO SCH (05:40)
[2021-05-25] MEDS: Pantoprazole 40 MG VIAL IVP SCH ×2 (05:40→17:02)
[2021-05-25] MEDS: *HR* Amiodarone 200 MG TABLET PO SCH (07:36)
[2021-05-25] MEDS: Doxycycline 100 MG CAPSULE PO SCH ×2 (07:36→20:53)
[2021-05-25] MEDS: Aspirin Enteric Coated 81 MG Tablet PO SCH (07:36)
[2021-05-25] MEDS: Insulin LISPRO 300 UNITS/3 ML VIAL SUBQ SCH ×3 (07:59→16:59)
[2021-05-25] MEDS: Norepinephrine 4 MG/254 ML IV.SOLN IVC SCH ×4 (08:50→23:00)
[2021-05-25] MEDS ORDERED: D5 IVC ONE ×3 (09:56→15:30)
[2021-05-25] MEDS ORDERED: ACETYLCYSTEINE IVC ONE ×3 (09:56→15:30)
[2021-05-25] MEDS ORDERED: WATER IVC ONE ×3 (09:56→15:30)
[2021-05-25] MEDS: Sodium Bicarbonate 150 MEQ in Water for inj. (sterile) 1,000 ML IVC SCH ×2 (10:56→21:20)
[2021-05-25 10:58] LABS: INR 3.9; Prothrombin Time 42.5 Seconds (9.4-12.1)
[2021-05-25 11:07] LABS: Alanine Aminotransferase 3446 Units/L (7-52); Albumin 3.5 g/dL (3.5-5.7); Albumin/Globulin Ratio 1.7 (1.1-2.2); Alkaline Phosphatase 51 Units/L (34-104); Aspartate Amino Transferase > 3000 Units/L (13-39); BUN/Creatinine Ratio 18 (6-26); Bilirubin,Direct 1.8 mg/dL (0.0-0.2); Bilirubin,Total 2.8 mg/dL (0.3-1.0); Blood Urea Nitrogen 77 mg/dL (8-23); Calcium 8.3 mg/dL (8.6-10.3); Carbon Dioxide 19 mEq/L (23-29); Chloride 100 mEq/L (98-107); Globulin 2.1 g/dL (2.4-3.5); Glucose 230 mg/dL (70-105); Osmolality,Calculated 308 (280-300); Potassium 5.1 mEq/L (3.5-5.1); Sodium 134 mEq/L (136-145); Total Protein 5.6 g/dL (6.4-8.9); eGFR For African Americans 17 (> 60); eGFR For Non-African Americans 14 (> 60)
[2021-05-25] MEDS: Latanoprost 2.5 ML BOTTLE BOTH EYES SCH (20:49)
[2021-05-26 03:58] LABS: Basophils % 0.1 %; Eosinophils % 0.1 %; Hematocrit 38.7 % (37.5-50.1); Hemoglobin 12.3 g/dL (12.9-16.9); Immature Granulocytes % 1.1 % (0-4); Lymphocytes % 6.7 %; Mean Corpuscular HGB Conc 31.8 g/dL (31.6-35.5); Mean Corpuscular Volume 88.2 fL (83.0-100.0); Monocytes # 0.7 K/mcL (0.0-1.3); Monocytes % 4.9 %; Neutrophils # 13.1 K/mcL (1.6-8.9); Nucleated Red Blood Cells 0.4 /100 WBC (0); Platelet Count 143 K/mcL (140-400); Red Blood Count 4.39 M/mcL (4.19-5.50); Red Cell Distribution Width 17.4 % (11.5-14.5); Segmented Neutrophils % 87.1 %
[2021-05-26 04:04] LABS: INR 4.3
[2021-05-26 04:10] LABS: Prothrombin Time 46.9 Seconds (9.4-12.1)
[2021-05-26 04:19] LABS: Calcium 7.2 mg/dL (8.6-10.3); Potassium 4.1 mEq/L (3.5-5.1)
[2021-05-26 04:33] LABS: Alanine Aminotransferase 3332 Units/L (7-52); Albumin 3.4 g/dL (3.5-5.7); Albumin/Globulin Ratio 1.6 (1.1-2.2); Alkaline Phosphatase 53 Units/L (34-104); Aspartate Amino Transferase > 3000 Units/L (13-39); Bilirubin,Direct 1.6 mg/dL (0.0-0.2); Bilirubin,Total 2.6 mg/dL (0.3-1.0); Globulin 2.1 g/dL (2.4-3.5); Total Protein 5.5 g/dL (6.4-8.9)
[2021-05-26] MEDS: Calcium Gluconate 1gm/50mL 1 GM/50 ML BAG IVPB SCH ×2 (04:57→05:53)
[2021-05-26 05:14] LABS: Magnesium 1.6 mg/dL (1.6-2.6)
[2021-05-26] MEDS: Levothyroxine 25 MCG TABLET PO SCH (05:55)
[2021-05-26] MEDS: Piperacillin/Tazobactam 3.375 GM in 0.9 % Sodium Chloride Mini Bag 100 ML IVPB SCH ×2 (05:56→17:35)
[2021-05-26] MEDS: Pantoprazole 40 MG VIAL IVP SCH ×2 (05:59→17:36)
[2021-05-26] MEDS: Aspirin Enteric Coated 81 MG Tablet PO SCH (07:23)
[2021-05-26] MEDS: Doxycycline 100 MG CAPSULE PO SCH ×2 (07:23→20:12)
[2021-05-26] MEDS: Sodium Bicarbonate 150 MEQ in Water for inj. (sterile) 1,000 ML IVC SCH ×2 (08:42→14:20)
[2021-05-26] MEDS: Insulin LISPRO 300 UNITS/3 ML VIAL SUBQ SCH ×3 (09:13→17:36)
[2021-05-26] MEDS ORDERED: 0.9 % Sodium Chloride 1,000 ML ONE (10:06)
[2021-05-26 11:03] LABS: VBG Ionized Calcium 0.84 mmol/L (1.15-1.35)
[2021-05-26] MEDS ORDERED: Calcium Chloride 2,000 MG in 0.9 % Sodium Chloride 100 ML IVPB ONE ×2 (15:22→18:34)
[2021-05-26 18:11] LABS: VBG Ionized Calcium 1.01 mmol/L (1.15-1.35)
[2021-05-26 18:25] LABS: Calcium 8.6 mg/dL (8.6-10.3); Magnesium 2.3 mg/dL (1.6-2.6); Potassium 3.8 mEq/L (3.5-5.1)
[2021-05-26] MEDS: Norepinephrine 4 MG/254 ML IV.SOLN IVC SCH (20:06)
[2021-05-26] MEDS: Latanoprost 2.5 ML BOTTLE BOTH EYES SCH (20:07)
[2021-05-26] MEDS: Benzonatate 100 MG CAPSULE PO PRN (22:22)
[2021-05-27] MEDS: Norepinephrine 4 MG/254 ML IV.SOLN IVC SCH ×3 (02:05→19:15)
[2021-05-27 03:32] LABS: Basophils % 0.1 %; Eosinophils % 0.3 %; Hemoglobin 11.7 g/dL (12.9-16.9); Immature Granulocytes % 0.9 % (0-4); Lymphocytes # 0.6 K/mcL (0.6-4.6); Lymphocytes % 6.9 %; Mean Corpuscular HGB Conc 33.4 g/dL (31.6-35.5); Mean Corpuscular Hemoglobin 29.1 pg (28.0-33.3); Mean Corpuscular Volume 87.1 fL (83.0-100.0); Mean Platelet Volume 10.9 fL (9.4-12.4); Monocytes # 0.5 K/mcL (0.0-1.3); Monocytes % 5.9 %; Neutrophils # 7.9 K/mcL (1.6-8.9); Nucleated Red Blood Cells 0.2 /100 WBC (0); Platelet Count 103 K/mcL (140-400); Red Blood Count 4.02 M/mcL (4.19-5.50); Red Cell Distribution Width 17.4 % (11.5-14.5); Segmented Neutrophils % 85.9 %; White Blood Count 9.2 K/mcL (4.3-11.1)
[2021-05-27 03:35] LABS: VBG Ionized Calcium 0.97 mmol/L (1.15-1.35)
[2021-05-27 03:42] LABS: INR 2.9; Prothrombin Time 32.1 Seconds (9.4-12.1)
[2021-05-27 03:50] LABS: Calcium 8.7 mg/dL (8.6-10.3); Potassium 3.9 mEq/L (3.5-5.1)
[2021-05-27] MEDS: Sodium Bicarbonate 150 MEQ in Water for inj. (sterile) 1,000 ML IVC SCH (03:51)
[2021-05-27 03:52] LABS: Magnesium 2.1 mg/dL (1.6-2.6); Phosphorous 5.5 mg/dL (2.7-4.5)
[2021-05-27 04:04] LABS: Activated Partial Thrombo Time 31.3 Seconds (26.0-36.0)
[2021-05-27 04:05] LABS: Alanine Aminotransferase 2456 Units/L (7-52); Albumin 3.2 g/dL (3.5-5.7); Albumin/Globulin Ratio 1.5 (1.1-2.2); Alkaline Phosphatase 58 Units/L (34-104); Aspartate Amino Transferase > 3000 Units/L (13-39); Bilirubin,Direct 1.8 mg/dL (0.0-0.2); Bilirubin,Total 2.8 mg/dL (0.3-1.0); Globulin 2.1 g/dL (2.4-3.5); Total Protein 5.3 g/dL (6.4-8.9)
[2021-05-27] MEDS: Levothyroxine 25 MCG TABLET PO SCH (05:04)
[2021-05-27] MEDS: Pantoprazole 40 MG VIAL IVP SCH ×2 (05:05→17:13)
[2021-05-27] MEDS: Piperacillin/Tazobactam 3.375 GM in 0.9 % Sodium Chloride Mini Bag 100 ML IVPB SCH ×2 (05:08→17:14)
[2021-05-27] MEDS ORDERED: Calcium Chloride 2,000 MG in 0.9 % Sodium Chloride 100 ML IVPB ONE (05:45)
[2021-05-27 08:45] LABS: Lambda Qnt Free Light Chains 20.02 mg/L (5.71-26.30)
[2021-05-27] MEDS: Doxycycline 100 MG CAPSULE PO SCH ×2 (10:07→21:11)
[2021-05-27] MEDS: Insulin LISPRO 300 UNITS/3 ML VIAL SUBQ SCH ×3 (10:07→16:20)
[2021-05-27] MEDS: Aspirin Enteric Coated 81 MG Tablet PO SCH (10:07)
[2021-05-27 10:15] LABS: ANA IgG by ELISA NONE DETECTED (None Detected); Kappa Qnt Free Light Chains 32.34 mg/L (3.30-19.40)
[2021-05-27] MEDS: Benzonatate 100 MG CAPSULE PO PRN (16:20)
[2021-05-27 19:42] LABS: Amorphous Sediment,Urine Few per hpf (None-Few); Bacteria,Urine Few per hpf (None-Few); Bilirubin,Urine Negative (Negative); Blood,Urine Large (Negative); Calcium Oxalate Crystals,Urine Present per hpf; Clarity,Urine Turbid (Clear); Color,Urine Light-Orange (Yellow); Glucose,Urine (UA) Normal (Normal); Ketones,Urine Trace mg/dL (Negative); Leukocyte Esterase,Urine Small (Negative); Nitrite,Urine Negative (Negative); PH,Urine 5.5 pH Units (5.0-8.0); Protein,Urine 100 mg/dL (Neg-Trace); RBC,Urine TNTC per hpf (0-3); Specific Gravity,Urine 1.017 (1.010-1.025); Urobilinogen,Urine Normal (Normal); WBC,Urine TNTC per hpf (0-3)
[2021-05-27] MEDS: Latanoprost 2.5 ML BOTTLE BOTH EYES SCH (21:12)
[2021-05-27] MEDS: Melatonin 3 MG TABLET PO PRN (21:14)
[2021-05-28 03:39] LABS: VBG Ionized Calcium 1.05 mmol/L (1.15-1.35)
[2021-05-28 03:41] LABS: Basophils % 0.2 %; Eosinophils # 0.1 K/mcL (0.0-0.6); Eosinophils % 0.9 %; Hematocrit 37.2 % (37.5-50.1); Hemoglobin 12.1 g/dL (12.9-16.9); Immature Granulocytes % 0.6 % (0-4); Lymphocytes # 0.4 K/mcL (0.6-4.6); Lymphocytes % 6.1 %; Mean Corpuscular HGB Conc 32.5 g/dL (31.6-35.5); Mean Corpuscular Volume 86.1 fL (83.0-100.0); Mean Platelet Volume 11.2 fL (9.4-12.4); Monocytes # 0.6 K/mcL (0.0-1.3); Monocytes % 9.1 %; Neutrophils # 5.3 K/mcL (1.6-8.9); Platelet Count 91 K/mcL (140-400); Red Blood Count 4.32 M/mcL (4.19-5.50); Red Cell Distribution Width 17.2 % (11.5-14.5); Segmented Neutrophils % 83.1 %; White Blood Count 6.4 K/mcL (4.3-11.1)
[2021-05-28 03:56] LABS: Phosphorous 4.9 mg/dL (2.7-4.5)
[2021-05-28 03:57] LABS: Calcium 8.9 mg/dL (8.6-10.3); Potassium 3.6 mEq/L (3.5-5.1)
[2021-05-28 04:16] LABS: Albumin 3.2 g/dL (3.5-5.7); Albumin/Globulin Ratio 1.5 (1.1-2.2); Bilirubin,Direct 2.4 mg/dL (0.0-0.2); Bilirubin,Indirect 1.2 mg/dL (0.0-1.0); Bilirubin,Total 3.6 mg/dL (0.3-1.0); Globulin 2.2 g/dL (2.4-3.5); Total Protein 5.4 g/dL (6.4-8.9)
[2021-05-28] MEDS: Norepinephrine 4 MG/254 ML IV.SOLN IVC SCH ×2 (04:34→15:12)
[2021-05-28] MEDS: Benzonatate 100 MG CAPSULE PO PRN (04:35)
[2021-05-28] MEDS: Pantoprazole 40 MG VIAL IVP SCH ×2 (05:42→17:19)
[2021-05-28] MEDS: Levothyroxine 25 MCG TABLET PO SCH (05:45)
[2021-05-28] MEDS: Piperacillin/Tazobactam 3.375 GM in 0.9 % Sodium Chloride Mini Bag 100 ML IVPB SCH ×2 (05:45→17:19)
[2021-05-28] MEDS: Insulin LISPRO 300 UNITS/3 ML VIAL SUBQ SCH ×3 (08:41→17:14)
[2021-05-28] MEDS: Aspirin Enteric Coated 81 MG Tablet PO SCH (08:42)
[2021-05-28] MEDS: Doxycycline 100 MG CAPSULE PO SCH ×2 (08:42→20:20)
[2021-05-28] MEDS ORDERED: D5% in Water 1,000 ML IVC PRN (14:04)
[2021-05-28] MEDS ORDERED: Dextrose Gel 15 GM/37.5 ML TUBE PO PRN ×2 (14:04)
[2021-05-28] MEDS ORDERED: Ondansetron 4 MG/2 ML VIAL IVP PRN (14:04)
[2021-05-28] MEDS ORDERED: Naloxone 0.4 MG/ML INJ IVP PRN (14:04)
[2021-05-28] MEDS ORDERED: *HR* Dextrose 50 % in Water (Syg) 50 ML SYRINGE IVP PRN (14:04)
[2021-05-28] MEDS: Latanoprost 2.5 ML BOTTLE BOTH EYES SCH (20:21)
[2021-05-29] MEDS: Piperacillin/Tazobactam 3.375 GM in 0.9 % Sodium Chloride Mini Bag 100 ML IVPB SCH ×2 (05:09→18:37)
[2021-05-29] MEDS: Pantoprazole 40 MG VIAL IVP SCH ×2 (05:10→18:36)
[2021-05-29] MEDS: Levothyroxine 25 MCG TABLET PO SCH (05:13)
[2021-05-29] MEDS: Insulin LISPRO 300 UNITS/3 ML VIAL SUBQ SCH ×3 (08:24→17:08)
[2021-05-29] MEDS: Aspirin Enteric Coated 81 MG Tablet PO SCH (08:46)
[2021-05-29] MEDS: Doxycycline 100 MG CAPSULE PO SCH (08:46)
[2021-05-29] MEDS ORDERED: Metoprolol XL (24 HR) Succ 50 MG TAB.ER.24H PO SCH (09:00)
[2021-05-29] MEDS ORDERED: *HR* Amiodarone 200 MG TABLET PO SCH (09:00)
[2021-05-29 11:04] LABS: Red Cell Distribution Width 17.6 % (11.5-14.5)
[2021-05-29 11:05] LABS: Hematocrit 40.8 % (37.5-50.1); Hemoglobin 13.1 g/dL (12.9-16.9); Immature Platelets 5.1 % (1.1-6.1); Mean Corpuscular HGB Conc 32.1 g/dL (31.6-35.5); Mean Corpuscular Hemoglobin 27.9 pg (28.0-33.3); Mean Platelet Volume 11.2 fL (9.4-12.4); Red Blood Count 4.69 M/mcL (4.19-5.50); White Blood Count 4.9 K/mcL (4.3-11.1)
[2021-05-29 11:10] LABS: INR 1.9; Prothrombin Time 21.5 Seconds (9.4-12.1)
[2021-05-29 11:13] LABS: Activated Partial Thrombo Time 33.7 Seconds (26.0-36.0)
[2021-05-29 11:45] LABS: Platelet Count 71 K/mcL (140-400)
[2021-05-29 11:52] LABS: Anisocytosis 1+ (Not Present); Eosinophils # 0.2 K/mcL (0.0-0.6); Lymphocytes # 0.6 K/mcL (0.6-4.6); Monocytes # 0.5 K/mcL (0.0-1.3); Neutrophils # 3.5 K/mcL (1.6-8.9); Platelet Estimate Slight Decrease (Normal); Poikilocytosis 1+ (Not Present)
[2021-05-29 12:00] LABS: Albumin 3.2 g/dL (3.5-5.7); Albumin/Globulin Ratio 1.4 (1.1-2.2); Bilirubin,Direct 2.1 mg/dL (0.0-0.2); Bilirubin,Indirect 2.1 mg/dL (0.0-1.0); Bilirubin,Total 4.2 mg/dL (0.3-1.0); Calcium 8.8 mg/dL (8.6-10.3); Globulin 2.3 g/dL (2.4-3.5); Potassium 3.7 mEq/L (3.5-5.1); Total Protein 5.5 g/dL (6.4-8.9)
[2021-05-29] MEDS: Latanoprost 2.5 ML BOTTLE BOTH EYES SCH (20:07)
[2021-05-30] MEDS: Nystatin POWDER 30 GM BOTTLE TP SCH ×4 (01:28→20:44)
[2021-05-30 05:16] LABS: Mean Corpuscular Volume 85.2 fL (83.0-100.0)
[2021-05-30 05:18] LABS: Basophils % 0.4 %; Eosinophils # 0.1 K/mcL (0.0-0.6); Eosinophils % 1.6 %; Hematocrit 38.7 % (37.5-50.1); Immature Granulocytes % 1.4 % (0-4); Immature Platelets 6.4 % (1.1-6.1); Lymphocytes # 0.6 K/mcL (0.6-4.6); Lymphocytes % 12.2 %; Mean Corpuscular HGB Conc 33.6 g/dL (31.6-35.5); Mean Corpuscular Hemoglobin 28.6 pg (28.0-33.3); Mean Platelet Volume 11.7 fL (9.4-12.4); Monocytes % 19.6 %; Neutrophils # 3.3 K/mcL (1.6-8.9); Red Blood Count 4.54 M/mcL (4.19-5.50); Red Cell Distribution Width 17.5 % (11.5-14.5); Segmented Neutrophils % 64.8 %; White Blood Count 5.1 K/mcL (4.3-11.1)
[2021-05-30 05:19] LABS: INR 1.8; Prothrombin Time 20.3 Seconds (9.4-12.1)
[2021-05-30 05:20] LABS: Platelet Count 70 K/mcL (140-400)
[2021-05-30 05:29] LABS: Calcium 8.9 mg/dL (8.6-10.3); Potassium 3.3 mEq/L (3.5-5.1)
[2021-05-30 05:48] LABS: Albumin 3.2 g/dL (3.5-5.7); Albumin/Globulin Ratio 1.4 (1.1-2.2); Bilirubin,Direct 2.9 mg/dL (0.0-0.2); Bilirubin,Indirect 1.8 mg/dL (0.0-1.0); Bilirubin,Total 4.7 mg/dL (0.3-1.0); Globulin 2.3 g/dL (2.4-3.5); Total Protein 5.5 g/dL (6.4-8.9)
[2021-05-30] MEDS: Pantoprazole 40 MG VIAL IVP SCH (05:48)
[2021-05-30] MEDS: Piperacillin/Tazobactam 3.375 GM in 0.9 % Sodium Chloride Mini Bag 100 ML IVPB SCH ×2 (05:49→17:14)
[2021-05-30] MEDS: Levothyroxine 25 MCG TABLET PO SCH (05:50)
[2021-05-30 06:17] LABS: Adenovirus F 40/41 PCR Not detected (Not detect); Astrovirus PCR Not detected (Not detect); C.difficile Toxin A/B Gene PCR Not detected (Not detect); Campylobacter by PCR Not detected (Not detect); Cryptosporidium by PCR Not detected (Not detect); Cyclospora cayetanensis PCR Not detected (Not detect); E. coli O157 by PCR Not detected (Not detect); Entamoeba histolytica PCR Not detected (Not detect); Enteroaggregative E.coli(EAEC) Not detected (Not detect); Enteropathogenic E.coli(EPEC) Not detected (Not detect); Enterotoxigenic E.coli (ETEC) Not detected (Not detect); Giardia lamblia PCR Not detected (Not detect); Norovirus GI/GII PCR Not detected (Not detect); Plesiomonas shigelloides PCR Not detected (Not detect); Rotavirus A PCR Not detected (Not detect); Salmonella PCR Not detected (Not detect); Sapovirus PCR Not detected (Not detect); Shig/EnteroinvasiveE coli EIEC Not detected (Not detect); Shigalike tox-prod E coli STEC Not detected (Not detect); Vibrio PCR Not detected (Not detect); Vibrio cholerae PCR Not detected (Not detect); Yersinia enterocolitica PCR Not detected (Not detect)
[2021-05-30] MEDS: Insulin LISPRO 300 UNITS/3 ML VIAL SUBQ SCH ×3 (07:18→17:14)
[2021-05-30] MEDS: Metoprolol XL (24 HR) Succ 25 MG TAB.ER.24H PO SCH (09:15)
[2021-05-30] MEDS: Aspirin Enteric Coated 81 MG Tablet PO SCH (09:15)
[2021-05-30 14:32] LABS: Urine Collection Volume NOT PROVIDED mL
[2021-05-30] MEDS: Latanoprost 2.5 ML BOTTLE BOTH EYES SCH (20:45)
[2021-05-30] MEDS: 0.9 % Sodium Chloride 1,000 ML IVC SCH (20:45)
[2021-05-30] MEDS ORDERED: Levalbuterol Neb 1.25 MG/3 ML ONE (22:11)
[2021-05-30] MEDS: Levalbuterol Neb 1.25 MG/3 ML IH SCH (23:32)
[2021-05-31 03:28] LABS: Red Cell Distribution Width 17.8 % (11.5-14.5)
[2021-05-31 03:30] LABS: Basophils % 0.5 %; Eosinophils # 0.1 K/mcL (0.0-0.6); Eosinophils % 1.9 %; Hematocrit 40.3 % (37.5-50.1); Hemoglobin 13.5 g/dL (12.9-16.9); Immature Granulocytes % 0.6 % (0-4); Immature Platelets 5.8 % (1.1-6.1); Lymphocytes # 0.7 K/mcL (0.6-4.6); Mean Corpuscular HGB Conc 33.5 g/dL (31.6-35.5); Mean Corpuscular Hemoglobin 28.8 pg (28.0-33.3); Mean Corpuscular Volume 85.9 fL (83.0-100.0); Mean Platelet Volume 12.7 fL (9.4-12.4); Monocytes # 0.9 K/mcL (0.0-1.3); Monocytes % 14.2 %; Neutrophils # 4.6 K/mcL (1.6-8.9); Red Blood Count 4.69 M/mcL (4.19-5.50); Segmented Neutrophils % 71.8 %; White Blood Count 6.4 K/mcL (4.3-11.1)
[2021-05-31 03:34] LABS: INR 1.8; Prothrombin Time 19.8 Seconds (9.4-12.1)
[2021-05-31 03:38] LABS: Platelet Count 60 K/mcL (140-400)
[2021-05-31 03:41] LABS: Calcium 8.6 mg/dL (8.6-10.3); Potassium 3.7 mEq/L (3.5-5.1)
[2021-05-31] MEDS: Levalbuterol Neb 1.25 MG/3 ML IH SCH ×6 (03:51→23:45)
[2021-05-31 03:54] LABS: Albumin 3.2 g/dL (3.5-5.7); Albumin/Globulin Ratio 1.3 (1.1-2.2); Bilirubin,Direct 2.5 mg/dL (0.0-0.2); Bilirubin,Indirect 1.6 mg/dL (0.0-1.0); Bilirubin,Total 4.1 mg/dL (0.3-1.0); Globulin 2.5 g/dL (2.4-3.5); Total Protein 5.7 g/dL (6.4-8.9)
[2021-05-31] MEDS: Levothyroxine 25 MCG TABLET PO SCH (06:06)
[2021-05-31] MEDS: Piperacillin/Tazobactam 3.375 GM in 0.9 % Sodium Chloride Mini Bag 100 ML IVPB SCH ×3 (06:06→20:38)
[2021-05-31] MEDS: Aspirin Enteric Coated 81 MG Tablet PO SCH (07:42)
[2021-05-31] MEDS: Metoprolol XL (24 HR) Succ 25 MG TAB.ER.24H PO SCH (07:42)
[2021-05-31] MEDS: Insulin LISPRO 300 UNITS/3 ML VIAL SUBQ SCH ×3 (07:43→18:18)
[2021-05-31] MEDS: Nystatin POWDER 30 GM BOTTLE TP SCH ×3 (07:44→20:39)
[2021-05-31 19:08] LABS: Alpha 2 Globulin (PEP) 0.59 g/dL (0.48-1.05); Beta Globulin (PEP) 0.65 g/dL (0.48-1.10)
[2021-05-31] MEDS: 0.9 % Sodium Chloride 1,000 ML IVC SCH (20:39)
[2021-05-31] MEDS: Latanoprost 2.5 ML BOTTLE BOTH EYES SCH (20:39)
[2021-05-31] MEDS ORDERED: Levalbuterol Neb 1.25 MG/3 ML IH SCH (21:00)
[2021-06-01 03:00] LABS: Basophils % 0.5 %; INR 1.6; Immature Granulocytes % 0.9 % (0-4); Prothrombin Time 18.2 Seconds (9.4-12.1); Red Cell Distribution Width 17.9 % (11.5-14.5)
[2021-06-01 03:02] LABS: Eosinophils # 0.2 K/mcL (0.0-0.6); Eosinophils % 2.3 %; Hematocrit 40.1 % (37.5-50.1); Hemoglobin 12.6 g/dL (12.9-16.9); Immature Platelets 5.4 % (1.1-6.1); Lymphocytes # 0.8 K/mcL (0.6-4.6); Lymphocytes % 11.6 %; Mean Corpuscular HGB Conc 31.4 g/dL (31.6-35.5); Mean Corpuscular Hemoglobin 27.6 pg (28.0-33.3); Mean Corpuscular Volume 87.7 fL (83.0-100.0); Monocytes # 0.8 K/mcL (0.0-1.3); Monocytes % 11.6 %; Red Blood Count 4.57 M/mcL (4.19-5.50); Segmented Neutrophils % 73.1 %; White Blood Count 6.5 K/mcL (4.3-11.1)
[2021-06-01 03:12] LABS: Neutrophils # 4.8 K/mcL (1.6-8.9); Platelet Count 35 K/mcL (140-400)
[2021-06-01 03:52] LABS: Calcium 8.4 mg/dL (8.6-10.3); Potassium 3.5 mEq/L (3.5-5.1)
[2021-06-01 04:04] LABS: Albumin 3.2 g/dL (3.5-5.7); Albumin/Globulin Ratio 1.2 (1.1-2.2); Bilirubin,Direct 1.9 mg/dL (0.0-0.2); Bilirubin,Indirect 1.5 mg/dL (0.0-1.0); Bilirubin,Total 3.4 mg/dL (0.3-1.0); Globulin 2.7 g/dL (2.4-3.5); Total Protein 5.9 g/dL (6.4-8.9)
[2021-06-01] MEDS: Levalbuterol Neb 1.25 MG/3 ML IH SCH ×6 (04:17→23:47)
[2021-06-01] MEDS: Levothyroxine 25 MCG TABLET PO SCH (05:45)
[2021-06-01 08:09] LABS: IFE Reflexed NOT DONE
[2021-06-01 09:20] LABS: Red Cell Distribution Width 18.2 % (11.5-14.5)
[2021-06-01 09:22] LABS: Basophils # 0.1 K/mcL (0.0-0.2); Basophils % 0.7 %; Eosinophils # 0.2 K/mcL (0.0-0.6); Eosinophils % 2.7 %; Hematocrit 41.7 % (37.5-50.1); Hemoglobin 12.8 g/dL (12.9-16.9); Immature Platelets 7.8 % (1.1-6.1); Lymphocytes % 13.7 %; Mean Corpuscular HGB Conc 30.7 g/dL (31.6-35.5); Mean Corpuscular Hemoglobin 27.3 pg (28.0-33.3); Mean Corpuscular Volume 88.9 fL (83.0-100.0); Monocytes # 0.8 K/mcL (0.0-1.3); Monocytes % 11.3 %; Red Blood Count 4.69 M/mcL (4.19-5.50); Segmented Neutrophils % 70.6 %; White Blood Count 7.1 K/mcL (4.3-11.1)
[2021-06-01 09:27] LABS: Platelet Count 43 K/mcL (140-400)
[2021-06-01 09:50] LABS: Anisocytosis 1+ (Not Present); Platelet Estimate Decreased (Normal)
[2021-06-01 09:51] LABS: Poikilocytosis 1+ (Not Present)
[2021-06-01] MEDS: Metoprolol XL (24 HR) Succ 25 MG TAB.ER.24H PO SCH (10:06)
[2021-06-01] MEDS: Aspirin Enteric Coated 81 MG Tablet PO SCH (10:06)
[2021-06-01] MEDS: Insulin LISPRO 300 UNITS/3 ML VIAL SUBQ SCH ×3 (10:10→16:44)
[2021-06-01] MEDS: Nystatin POWDER 30 GM BOTTLE TP SCH ×3 (10:11→20:25)
[2021-06-01] MEDS: 0.9 % Sodium Chloride 1,000 ML IVC SCH (10:13)
[2021-06-01] MEDS: Latanoprost 2.5 ML BOTTLE BOTH EYES SCH (20:25)
[2021-06-02] MEDS: Levalbuterol Neb 1.25 MG/3 ML IH SCH ×5 (03:39→20:14)
[2021-06-02] MEDS: Levothyroxine 25 MCG TABLET PO SCH (05:01)
[2021-06-02 06:54] LABS: Immature Granulocytes % 1.1 % (0-4)
[2021-06-02 06:56] LABS: Basophils # 0.1 K/mcL (0.0-0.2); Basophils % 0.8 %; Eosinophils # 0.3 K/mcL (0.0-0.6); Eosinophils % 3.3 %; Hematocrit 41.2 % (37.5-50.1); Hemoglobin 12.9 g/dL (12.9-16.9); Immature Platelets 8.2 % (1.1-6.1); Lymphocytes # 1.2 K/mcL (0.6-4.6); Mean Corpuscular HGB Conc 31.3 g/dL (31.6-35.5); Mean Corpuscular Hemoglobin 27.7 pg (28.0-33.3); Mean Corpuscular Volume 88.6 fL (83.0-100.0); Mean Platelet Volume 12.5 fL (9.4-12.4); Monocytes # 0.8 K/mcL (0.0-1.3); Monocytes % 10.4 %; Neutrophils # 5.1 K/mcL (1.6-8.9); Red Blood Count 4.65 M/mcL (4.19-5.50); Red Cell Distribution Width 18.4 % (11.5-14.5); Segmented Neutrophils % 68.4 %; White Blood Count 7.5 K/mcL (4.3-11.1)
[2021-06-02 07:01] LABS: INR 1.5
[2021-06-02 07:04] LABS: Potassium 3.6 mEq/L (3.5-5.1)
[2021-06-02 07:05] LABS: Albumin 3.6 g/dL (3.5-5.7); Albumin/Globulin Ratio 1.3 (1.1-2.2); Bilirubin,Total 3.4 mg/dL (0.3-1.0); Calcium 8.9 mg/dL (8.6-10.3); Globulin 2.7 g/dL (2.4-3.5); Total Protein 6.3 g/dL (6.4-8.9)
[2021-06-02 07:06] LABS: Bilirubin,Direct 1.8 mg/dL (0.0-0.2); Bilirubin,Indirect 1.6 mg/dL (0.0-1.0)
[2021-06-02 07:12] LABS: Platelet Count 54 K/mcL (140-400)
[2021-06-02 08:14] LABS: Anisocytosis 1+ (Not Present); Platelet Estimate Decreased (Normal); Poikilocytosis 1+ (Not Present)
[2021-06-02] MEDS: 0.9 % Sodium Chloride 1,000 ML IVC SCH (09:15)
[2021-06-02] MEDS: Insulin LISPRO 300 UNITS/3 ML VIAL SUBQ SCH ×3 (09:17→17:39)
[2021-06-02] MEDS: Metoprolol XL (24 HR) Succ 25 MG TAB.ER.24H PO SCH (09:18)
[2021-06-02] MEDS: Nystatin POWDER 30 GM BOTTLE TP SCH ×3 (09:18→21:13)
[2021-06-02] MEDS: Aspirin Enteric Coated 81 MG Tablet PO SCH (09:18)
[2021-06-02] MEDS: *HR* Amiodarone 200 MG TABLET PO SCH (13:25)
[2021-06-02] MEDS: Latanoprost 2.5 ML BOTTLE BOTH EYES SCH (20:20)
[2021-06-02] MEDS: traZODone 50 MG TABLET PO PRN (20:21)
[2021-06-02] MEDS ORDERED: *HR* HYDROcodone/Acet 5/325 mg TABLET PO ONE (22:15)
[2021-06-03] MEDS: Levalbuterol Neb 1.25 MG/3 ML IH SCH ×6 (00:04→20:19)
[2021-06-03] MEDS: Levothyroxine 25 MCG TABLET PO SCH (05:47)
[2021-06-03 06:51] LABS: Albumin 3.5 g/dL (3.5-5.7); Albumin/Globulin Ratio 1.3 (1.1-2.2); Calcium 8.5 mg/dL (8.6-10.3); Globulin 2.7 g/dL (2.4-3.5); Potassium 4.1 mEq/L (3.5-5.1); Total Protein 6.2 g/dL (6.4-8.9)
[2021-06-03] MEDS: Aspirin Enteric Coated 81 MG Tablet PO SCH (07:40)
[2021-06-03] MEDS: *HR* Amiodarone 200 MG TABLET PO SCH (07:40)
[2021-06-03] MEDS: Insulin LISPRO 300 UNITS/3 ML VIAL SUBQ SCH ×3 (07:40→17:41)
[2021-06-03] MEDS: Metoprolol XL (24 HR) Succ 25 MG TAB.ER.24H PO SCH (07:40)
[2021-06-03] MEDS: Nystatin POWDER 30 GM BOTTLE TP SCH ×3 (07:44→20:30)
[2021-06-03 12:10] LABS: Basophils % 0.3 %; Eosinophils # 0.2 K/mcL (0.0-0.6); Hematocrit 38.6 % (37.5-50.1); Hemoglobin 12.2 g/dL (12.9-16.9); Lymphocytes # 1.2 K/mcL (0.6-4.6); Mean Corpuscular HGB Conc 31.6 g/dL (31.6-35.5); Mean Corpuscular Hemoglobin 28.3 pg (28.0-33.3); Mean Corpuscular Volume 89.6 fL (83.0-100.0); Mean Platelet Volume 12.6 fL (9.4-12.4); Monocytes # 0.9 K/mcL (0.0-1.3); Monocytes % 9.7 %; Neutrophils # 6.4 K/mcL (1.6-8.9); Platelet Count 102 K/mcL (140-400); Red Blood Count 4.31 M/mcL (4.19-5.50); Red Cell Distribution Width 18.7 % (11.5-14.5); White Blood Count 8.8 K/mcL (4.3-11.1)
[2021-06-03] MEDS: Latanoprost 2.5 ML BOTTLE BOTH EYES SCH (20:30)
[2021-06-03] MEDS ORDERED: *HR* OxyCODONE Immed Rel 5 MG TABLET PO ONE (23:28)
[2021-06-04] MEDS: Levalbuterol Neb 1.25 MG/3 ML IH SCH ×6 (00:04→20:11)
[2021-06-04] MEDS: Levothyroxine 25 MCG TABLET PO SCH (05:31)
[2021-06-04 06:31] LABS: Hematocrit 39.6 % (37.5-50.1); Hemoglobin 12.1 g/dL (12.9-16.9); Immature Platelets 7.8 % (1.1-6.1); Mean Corpuscular HGB Conc 30.6 g/dL (31.6-35.5); Mean Corpuscular Hemoglobin 27.5 pg (28.0-33.3); Red Blood Count 4.4 M/mcL (4.19-5.50); White Blood Count 7.8 K/mcL (4.3-11.1)
[2021-06-04 06:42] LABS: Albumin 3.5 g/dL (3.5-5.7); Albumin/Globulin Ratio 1.3 (1.1-2.2); Bilirubin,Direct 1.6 mg/dL (0.0-0.2); Bilirubin,Indirect 1.5 mg/dL (0.0-1.0); Bilirubin,Total 3.1 mg/dL (0.3-1.0); Globulin 2.8 g/dL (2.4-3.5); INR 1.5; Potassium 3.9 mEq/L (3.5-5.1); Prothrombin Time 16.6 Seconds (9.4-12.1); Total Protein 6.3 g/dL (6.4-8.9)
[2021-06-04] MEDS: Metoprolol XL (24 HR) Succ 25 MG TAB.ER.24H PO SCH (09:32)
[2021-06-04] MEDS: Insulin LISPRO 300 UNITS/3 ML VIAL SUBQ SCH ×3 (09:32→16:58)
[2021-06-04] MEDS: *HR* Amiodarone 200 MG TABLET PO SCH (09:32)
[2021-06-04] MEDS: Nystatin POWDER 30 GM BOTTLE TP SCH ×3 (09:33→20:09)
[2021-06-04] MEDS: Latanoprost 2.5 ML BOTTLE BOTH EYES SCH (20:09)
[2021-06-04] MEDS ORDERED: Menthol 1 EACH LOZENGE PO PRN (21:32)
[2021-06-05] MEDS: Levalbuterol Neb 1.25 MG/3 ML IH SCH ×8 (00:11→23:53)
[2021-06-05] MEDS: Melatonin 3 MG TABLET PO PRN (01:49)
[2021-06-05 02:24] LABS: Albumin 3.5 g/dL (3.5-5.7); Albumin/Globulin Ratio 1.3 (1.1-2.2); Bilirubin,Direct 1.3 mg/dL (0.0-0.2); Bilirubin,Indirect 1.4 mg/dL (0.0-1.0); Bilirubin,Total 2.7 mg/dL (0.3-1.0); Globulin 2.7 g/dL (2.4-3.5); Potassium 4.1 mEq/L (3.5-5.1); Total Protein 6.2 g/dL (6.4-8.9)
[2021-06-05] MEDS: Levothyroxine 25 MCG TABLET PO SCH (05:52)
[2021-06-05] MEDS: Metoprolol XL (24 HR) Succ 25 MG TAB.ER.24H PO SCH (07:44)
[2021-06-05] MEDS: *HR* Amiodarone 200 MG TABLET PO SCH (07:44)
[2021-06-05] MEDS: Insulin LISPRO 300 UNITS/3 ML VIAL SUBQ SCH ×3 (07:44→16:44)
[2021-06-05] MEDS: Nystatin POWDER 30 GM BOTTLE TP SCH ×3 (07:44→20:15)
[2021-06-05] MEDS: Apixaban 5 MG TABLET PO SCH ×2 (07:44→20:15)
[2021-06-05] MEDS ORDERED: Furosemide 40 MG TABLET PO SCH (10:45)
[2021-06-05] MEDS: Torsemide 20 MG TABLET PO SCH (12:02)
[2021-06-05] MEDS: Latanoprost 2.5 ML BOTTLE BOTH EYES SCH (20:15)
[2021-06-05] MEDS: traZODone 50 MG TABLET PO PRN (22:32)
[2021-06-06] MEDS: Levalbuterol Neb 1.25 MG/3 ML IH SCH ×6 (03:56→23:58)
[2021-06-06] MEDS: Levothyroxine 25 MCG TABLET PO SCH (05:27)
[2021-06-06 06:23] LABS: Albumin 3.7 g/dL (3.5-5.7); Albumin/Globulin Ratio 1.3 (1.1-2.2); Bilirubin,Direct 1.5 mg/dL (0.0-0.2); Bilirubin,Indirect 1.7 mg/dL (0.0-1.0); Bilirubin,Total 3.2 mg/dL (0.3-1.0); Calcium 9.3 mg/dL (8.6-10.3); Globulin 2.9 g/dL (2.4-3.5); Magnesium 1.7 mg/dL (1.6-2.6); Phosphorous 2.8 mg/dL (2.7-4.5); Total Protein 6.6 g/dL (6.4-8.9)
[2021-06-06] MEDS: Nystatin POWDER 30 GM BOTTLE TP SCH ×3 (07:21→20:05)
[2021-06-06] MEDS: *HR* Amiodarone 200 MG TABLET PO SCH (07:21)
[2021-06-06] MEDS: Metoprolol XL (24 HR) Succ 25 MG TAB.ER.24H PO SCH (07:21)
[2021-06-06] MEDS: Apixaban 5 MG TABLET PO SCH (07:21)
[2021-06-06] MEDS: Torsemide 20 MG TABLET PO SCH (07:21)
[2021-06-06] MEDS: Insulin LISPRO 300 UNITS/3 ML VIAL SUBQ SCH ×3 (07:22→16:56)
[2021-06-06 11:22] LABS: Hemoglobin 11.2 g/dL (12.9-16.9); Mean Corpuscular HGB Conc 31.1 g/dL (31.6-35.5); Mean Corpuscular Hemoglobin 28.4 pg (28.0-33.3); Mean Corpuscular Volume 91.1 fL (83.0-100.0); Mean Platelet Volume 12.1 fL (9.4-12.4); Platelet Count 140 K/mcL (140-400); Red Blood Count 3.95 M/mcL (4.19-5.50); Red Cell Distribution Width 19.5 % (11.5-14.5); White Blood Count 9.2 K/mcL (4.3-11.1)
[2021-06-06 15:52] LABS: Adenovirus Not Detected (Not Detect); Bordetella Pertussis Not Detected (Not Detect); Chlamydophila pneumoniae Not Detected (Not Detect); Coronavirus 229E Not Detected (Not Detect); Coronavirus HKU1 Not Detected (Not Detect); Coronavirus NL63 Not Detected (Not Detect); Coronavirus OC43 Not Detected (Not Detect); Human Metapneumovirus Not Detected (Not Detect); Human Rhinovirus/Enterovirus DETECTED (Not Detect); Influenza A Subtype 2009 H1 Not Detected (Not Detect); Influenza B Not Detected (Not Detect); Mycoplasma pneumoniae Not Detected (Not Detect); Parainfluenza Virus 1 Not Detected (Not Detect); Parainfluenza Virus 2 Not Detected (Not Detect); Parainfluenza Virus 3 Not Detected (Not Detect); Parainfluenza Virus 4 Not Detected (Not Detect); Respiratory Syncytial Virus Not Detected (Not Detect); SARS-CoV-2 Not Detected (Not Detect)
[2021-06-06 18:46] LABS: Hematocrit 37.8 % (37.5-50.1); Hemoglobin 11.7 g/dL (12.9-16.9)
[2021-06-06] MEDS: Latanoprost 2.5 ML BOTTLE BOTH EYES SCH (20:05)
[2021-06-06] MEDS: traZODone 50 MG TABLET PO PRN (20:05)
[2021-06-06] MEDS ORDERED: Furosemide 20 MG/2 ML VIAL IVP ONE (23:59)
[2021-06-07] MEDS: Levalbuterol Neb 1.25 MG/3 ML IH SCH ×6 (03:27→23:17)
[2021-06-07 05:42] LABS: Hematocrit 37.8 % (37.5-50.1); Hemoglobin 11.5 g/dL (12.9-16.9); Mean Corpuscular HGB Conc 30.4 g/dL (31.6-35.5); Mean Corpuscular Hemoglobin 27.7 pg (28.0-33.3); Mean Corpuscular Volume 91.1 fL (83.0-100.0); Mean Platelet Volume 12.3 fL (9.4-12.4); Platelet Count 151 K/mcL (140-400); Red Blood Count 4.15 M/mcL (4.19-5.50); Red Cell Distribution Width 19.9 % (11.5-14.5); White Blood Count 8.4 K/mcL (4.3-11.1)
[2021-06-07 05:56] LABS: Albumin 3.5 g/dL (3.5-5.7); Albumin/Globulin Ratio 1.2 (1.1-2.2); Bilirubin,Direct 1.4 mg/dL (0.0-0.2); Bilirubin,Indirect 1.6 mg/dL (0.0-1.0); Calcium 9.2 mg/dL (8.6-10.3); Magnesium 1.7 mg/dL (1.6-2.6); Phosphorous 2.4 mg/dL (2.7-4.5); Potassium 4.1 mEq/L (3.5-5.1); Total Protein 6.5 g/dL (6.4-8.9)
[2021-06-07] MEDS: Levothyroxine 25 MCG TABLET PO SCH (05:57)
[2021-06-07] MEDS: *HR* Amiodarone 200 MG TABLET PO SCH ×2 (07:11→08:49)
[2021-06-07] MEDS: Torsemide 20 MG TABLET PO SCH (07:11)
[2021-06-07] MEDS: Insulin LISPRO 300 UNITS/3 ML VIAL SUBQ SCH ×3 (07:12→16:42)
[2021-06-07] MEDS: Metoprolol XL (24 HR) Succ 25 MG TAB.ER.24H PO SCH (07:12)
[2021-06-07] MEDS: Nystatin POWDER 30 GM BOTTLE TP SCH ×3 (07:12→20:38)
[2021-06-07] MEDS: Furosemide 40 MG/4 ML VIAL IVP SCH ×2 (12:21→16:40)
[2021-06-07] MEDS: Melatonin 3 MG TABLET PO PRN (20:38)
[2021-06-07] MEDS: Apixaban 5 MG TABLET PO SCH (20:38)
[2021-06-07] MEDS: Latanoprost 2.5 ML BOTTLE BOTH EYES SCH (20:39)
[2021-06-08 01:08] LABS: Albumin 3.4 g/dL (3.5-5.7); Albumin/Globulin Ratio 1.2 (1.1-2.2); Bilirubin,Direct 1.3 mg/dL (0.0-0.2); Bilirubin,Indirect 1.4 mg/dL (0.0-1.0); Bilirubin,Total 2.7 mg/dL (0.3-1.0); Globulin 2.8 g/dL (2.4-3.5); Potassium 3.7 mEq/L (3.5-5.1); Total Protein 6.2 g/dL (6.4-8.9)
[2021-06-08] MEDS: Levalbuterol Neb 1.25 MG/3 ML IH SCH ×7 (01:14→23:27)
[2021-06-08] MEDS: Levothyroxine 25 MCG TABLET PO SCH (06:08)
[2021-06-08] MEDS: Insulin LISPRO 300 UNITS/3 ML VIAL SUBQ SCH ×3 (07:16→16:54)
[2021-06-08] MEDS: Furosemide 40 MG/4 ML VIAL IVP SCH ×2 (07:42→16:54)
[2021-06-08] MEDS: Apixaban 5 MG TABLET PO SCH ×2 (07:42→20:10)
[2021-06-08] MEDS: *HR* Amiodarone 200 MG TABLET PO SCH (07:42)
[2021-06-08] MEDS: Metoprolol XL (24 HR) Succ 25 MG TAB.ER.24H PO SCH (07:42)
[2021-06-08] MEDS: Nystatin POWDER 30 GM BOTTLE TP SCH ×3 (07:43→20:24)
[2021-06-08] MEDS: Melatonin 3 MG TABLET PO PRN (20:10)
[2021-06-09] MEDS: traZODone 50 MG TABLET PO PRN (00:22)
[2021-06-09] MEDS: Latanoprost 2.5 ML BOTTLE BOTH EYES SCH ×2 (00:23→21:39)
[2021-06-09 00:57] LABS: Albumin 3.3 g/dL (3.5-5.7); Albumin/Globulin Ratio 1.1 (1.1-2.2); Bilirubin,Direct 1.1 mg/dL (0.0-0.2); Bilirubin,Indirect 1.3 mg/dL (0.0-1.0); Bilirubin,Total 2.4 mg/dL (0.3-1.0); Calcium 8.9 mg/dL (8.6-10.3); Globulin 2.9 g/dL (2.4-3.5); Total Protein 6.2 g/dL (6.4-8.9)
[2021-06-09] MEDS: Levalbuterol Neb 1.25 MG/3 ML IH SCH ×6 (04:30→23:33)
[2021-06-09] MEDS: Levothyroxine 25 MCG TABLET PO SCH (05:24)
[2021-06-09] MEDS: Insulin LISPRO 300 UNITS/3 ML VIAL SUBQ SCH ×3 (07:43→16:56)
[2021-06-09] MEDS: Furosemide 40 MG/4 ML VIAL IVP SCH (07:44)
[2021-06-09] MEDS: Metoprolol XL (24 HR) Succ 25 MG TAB.ER.24H PO SCH (07:44)
[2021-06-09] MEDS: *HR* Amiodarone 200 MG TABLET PO SCH (07:44)
[2021-06-09] MEDS: Nystatin POWDER 30 GM BOTTLE TP SCH ×3 (07:45→21:38)
[2021-06-09] MEDS: Apixaban 5 MG TABLET PO SCH ×2 (07:45→21:38)
[2021-06-09] MEDS: Torsemide 20 MG TABLET PO SCH (16:56)
[2021-06-09] MEDS: Melatonin 3 MG TABLET PO PRN (21:38)
[2021-06-10 03:34] LABS: Hematocrit 35.4 % (37.5-50.1); Hemoglobin 11.1 g/dL (12.9-16.9); Mean Corpuscular HGB Conc 31.4 g/dL (31.6-35.5); Mean Corpuscular Hemoglobin 28.3 pg (28.0-33.3); Mean Corpuscular Volume 90.3 fL (83.0-100.0); Mean Platelet Volume 11.6 fL (9.4-12.4); Platelet Count 145 K/mcL (140-400); Red Blood Count 3.92 M/mcL (4.19-5.50); Red Cell Distribution Width 20.3 % (11.5-14.5); White Blood Count 7.7 K/mcL (4.3-11.1)
[2021-06-10 03:58] LABS: Albumin 3.4 g/dL (3.5-5.7); Albumin/Globulin Ratio 1.2 (1.1-2.2); Bilirubin,Direct 1.2 mg/dL (0.0-0.2); Bilirubin,Indirect 1.3 mg/dL (0.0-1.0); Bilirubin,Total 2.5 mg/dL (0.3-1.0); Calcium 9.1 mg/dL (8.6-10.3); Globulin 2.8 g/dL (2.4-3.5); Magnesium 1.7 mg/dL (1.6-2.6); Phosphorous 3.3 mg/dL (2.7-4.5); Potassium 3.6 mEq/L (3.5-5.1); Total Protein 6.2 g/dL (6.4-8.9)
[2021-06-10] MEDS: Levalbuterol Neb 1.25 MG/3 ML IH SCH ×5 (04:02→21:10)
[2021-06-10] MEDS: Levothyroxine 25 MCG TABLET PO SCH (05:56)
[2021-06-10] MEDS: Apixaban 5 MG TABLET PO SCH ×2 (07:53→22:05)
[2021-06-10] MEDS: Insulin LISPRO 300 UNITS/3 ML VIAL SUBQ SCH ×3 (07:54→17:15)
[2021-06-10] MEDS: Torsemide 20 MG TABLET PO SCH ×2 (07:54→17:24)
[2021-06-10] MEDS: *HR* Amiodarone 200 MG TABLET PO SCH (07:54)
[2021-06-10] MEDS: Nystatin POWDER 30 GM BOTTLE TP SCH ×3 (07:54→22:05)
[2021-06-10] MEDS ORDERED: Metoprolol XL (24 HR) Succ 25 MG TAB.ER.24H PO SCH (09:00)
[2021-06-10 16:58] LABS: Influenza A PCR Negative (Negative); Influenza B PCR Negative (Negative); Resp. Syncytial Virus PCR Negative (Negative)
[2021-06-10 17:11] LABS: SARS-CoV-2 by PCR (In House) Negative (Negative)
[2021-06-10] MEDS: Latanoprost 2.5 ML BOTTLE BOTH EYES SCH (22:06)
[2021-06-11 00:41] VITALS: BP 130/82; PULSE 87; TEMP 97.4
[2021-06-11] MEDS: Levalbuterol Neb 1.25 MG/3 ML IH SCH (00:42)
[2021-06-11 00:44] VITALS: O2SAT 93
== END 2021-06-11 01:46 | disposition other institution (70) | DRG 280 ==
LOC: 2ANU 17:09 → EMEROOARM 17:09 → SUATTDRO 22:11 → 2ANU 22:56 → SUATTDRO 05-24 14:39 → ICNU 05-24 19:19 → 2ANU 05-28 15:06
PROVIDERS: ADMIT Internal Medicine; ATTEND Internal Medicine

== ENCOUNTER 2021-10-04 09:36 | Observation (INO) ==
[2021-10-04] MEDS ORDERED: Aspirin 325 MG TABLET PO ONE (09:45)
[2021-10-04 10:00] LABS: Basophils # 0.1 K/mcL (0.0-0.2); Basophils % 0.5 %; Eosinophils # 0.1 K/mcL (0.0-0.6); Hematocrit 46.4 % (37.5-50.1); Hemoglobin 14.4 g/dL (12.9-16.9); Immature Granulocytes % 0.5 % (0-4); Lymphocytes # 0.9 K/mcL (0.6-4.6); Lymphocytes % 8.7 %; Mean Corpuscular Volume 87.1 fL (83.0-100.0); Mean Platelet Volume 10.1 fL (9.4-12.4); Monocytes # 0.9 K/mcL (0.0-1.3); Neutrophils # 8.3 K/mcL (1.6-8.9); Platelet Count 187 K/mcL (140-400); Red Blood Count 5.33 M/mcL (4.19-5.50); Segmented Neutrophils % 80.3 %; White Blood Count 10.4 K/mcL (4.3-11.1)
[2021-10-04 10:12] LABS: INR 1.4; Prothrombin Time 15.2 Seconds (9.4-12.1)
[2021-10-04 10:14] LABS: Activated Partial Thrombo Time 35.1 Seconds (26.0-36.0)
[2021-10-04 10:19] LABS: Albumin 4.2 g/dL (3.5-5.7); Albumin/Globulin Ratio 1.4 (1.1-2.2); Bilirubin,Indirect 1.7 mg/dL (0.0-1.0); Bilirubin,Total 2.7 mg/dL (0.3-1.0); Calcium 9.9 mg/dL (8.6-10.3); Globulin 3.1 g/dL (2.4-3.5); Magnesium 1.6 mg/dL (1.6-2.6); Potassium 3.8 mEq/L (3.5-5.1); Total Protein 7.3 g/dL (6.4-8.9)
[2021-10-04 10:23] LABS: Troponin I 0.07 ng/mL (< 0.04)
[2021-10-04 10:58] LABS: Thyroid Stimulating Hormone 4.1 mcIU/mL (0.340-5.600)
[2021-10-04 11:12] LABS: Influenza A PCR Negative (Negative); Influenza B PCR Negative (Negative); Resp. Syncytial Virus PCR Negative (Negative)
[2021-10-04 11:19] LABS: SARS-CoV-2 by PCR (In House) Negative (Negative)
[2021-10-04] MEDS ORDERED: Furosemide 40 MG/4 ML VIAL IVP ONE (12:38)
[2021-10-04] MEDS ORDERED: Naloxone 0.4 MG/ML INJ IVP PRN (13:34)
[2021-10-04] MEDS: Gabapentin 100 MG CAPSULE PO SCH ×2 (15:45→21:31)
[2021-10-04] MEDS: Metoprolol XL (24 HR) Succ 25 MG TAB.ER.24H PO SCH (15:45)
[2021-10-04] MEDS: traZODone 50 MG TABLET PO SCH (21:31)
[2021-10-04] MEDS: Apixaban 5 MG TABLET PO SCH (21:31)
[2021-10-04] MEDS: Latanoprost 2.5 ML BOTTLE BOTH EYES SCH (21:34)
[2021-10-05 04:32] LABS: Basophils # 0.1 K/mcL (0.0-0.2); Basophils % 0.9 %; Eosinophils # 0.2 K/mcL (0.0-0.6); Eosinophils % 2.6 %; Hematocrit 38.9 % (37.5-50.1); Immature Granulocytes % 0.4 % (0-4); Mean Corpuscular HGB Conc 32.1 g/dL (31.6-35.5); Mean Corpuscular Hemoglobin 27.4 pg (28.0-33.3); Mean Corpuscular Volume 85.3 fL (83.0-100.0); Mean Platelet Volume 9.8 fL (9.4-12.4); Monocytes # 0.8 K/mcL (0.0-1.3); Neutrophils # 4.9 K/mcL (1.6-8.9); Platelet Count 138 K/mcL (140-400); Red Blood Count 4.56 M/mcL (4.19-5.50); Red Cell Distribution Width 15.9 % (11.5-14.5); Segmented Neutrophils % 70.1 %; White Blood Count 6.9 K/mcL (4.3-11.1)
[2021-10-05 04:50] LABS: Hemoglobin 12.5 g/dL (12.9-16.9)
[2021-10-05 04:51] LABS: Calcium 9.2 mg/dL (8.6-10.3); Potassium 3.3 mEq/L (3.5-5.1)
[2021-10-05] MEDS: Levothyroxine 25 MCG TABLET PO SCH (06:45)
[2021-10-05] MEDS: Furosemide 40 MG/4 ML VIAL IVP SCH (08:16)
[2021-10-05] MEDS: Metoprolol XL (24 HR) Succ 25 MG TAB.ER.24H PO SCH (08:16)
[2021-10-05] MEDS: Gabapentin 100 MG CAPSULE PO SCH ×3 (08:17→21:11)
[2021-10-05] MEDS: Apixaban 5 MG TABLET PO SCH ×2 (08:17→21:11)
[2021-10-05] MEDS: Valsartan 80 MG TABLET PO SCH (08:17)
[2021-10-05] MEDS: traZODone 50 MG TABLET PO SCH (21:10)
[2021-10-05] MEDS: Latanoprost 2.5 ML BOTTLE BOTH EYES SCH (22:02)
[2021-10-06 04:48] LABS: Basophils # 0.1 K/mcL (0.0-0.2); Basophils % 0.7 %; Eosinophils # 0.2 K/mcL (0.0-0.6); Eosinophils % 2.5 %; Hematocrit 40.3 % (37.5-50.1); Hemoglobin 12.8 g/dL (12.9-16.9); Immature Granulocytes % 0.4 % (0-4); Lymphocytes # 0.9 K/mcL (0.6-4.6); Lymphocytes % 13.5 %; Mean Corpuscular HGB Conc 31.8 g/dL (31.6-35.5); Mean Corpuscular Hemoglobin 27.4 pg (28.0-33.3); Mean Corpuscular Volume 86.1 fL (83.0-100.0); Monocytes # 0.8 K/mcL (0.0-1.3); Monocytes % 11.6 %; Neutrophils # 4.9 K/mcL (1.6-8.9); Platelet Count 142 K/mcL (140-400); Red Blood Count 4.68 M/mcL (4.19-5.50); Red Cell Distribution Width 16.1 % (11.5-14.5); Segmented Neutrophils % 71.3 %; White Blood Count 6.9 K/mcL (4.3-11.1)
[2021-10-06 05:13] LABS: Calcium 9.4 mg/dL (8.6-10.3); Potassium 3.8 mEq/L (3.5-5.1)
[2021-10-06] MEDS: Levothyroxine 25 MCG TABLET PO SCH (05:49)
[2021-10-06] MEDS: Furosemide 40 MG/4 ML VIAL IVP SCH (10:32)
[2021-10-06] MEDS: Apixaban 5 MG TABLET PO SCH ×2 (10:34→20:12)
[2021-10-06] MEDS: Valsartan 80 MG TABLET PO SCH (10:34)
[2021-10-06] MEDS: Gabapentin 100 MG CAPSULE PO SCH ×3 (10:34→20:13)
[2021-10-06] MEDS: Metoprolol XL (24 HR) Succ 25 MG TAB.ER.24H PO SCH (10:34)
[2021-10-06] MEDS: traZODone 50 MG TABLET PO SCH (20:12)
[2021-10-06] MEDS: Latanoprost 2.5 ML BOTTLE BOTH EYES SCH (20:13)
[2021-10-06 23:30] LABS: Calcium 9.3 mg/dL (8.6-10.3); Magnesium 1.6 mg/dL (1.6-2.6); Phosphorous 4.8 mg/dL (2.7-4.5); Potassium 3.8 mEq/L (3.5-5.1)
[2021-10-07] MEDS: Levothyroxine 25 MCG TABLET PO SCH (05:31)
[2021-10-07] MEDS: Valsartan 80 MG TABLET PO SCH (08:04)
[2021-10-07] MEDS: Gabapentin 100 MG CAPSULE PO SCH ×3 (08:04→21:02)
[2021-10-07] MEDS: Apixaban 5 MG TABLET PO SCH ×2 (08:04→21:02)
[2021-10-07] MEDS: Furosemide 40 MG/4 ML VIAL IVP SCH (08:04)
[2021-10-07] MEDS: Metoprolol XL (24 HR) Succ 25 MG TAB.ER.24H PO SCH (08:04)
[2021-10-07 09:34] LABS: Basophils # 0.1 K/mcL (0.0-0.2); Basophils % 0.7 %; Eosinophils # 0.2 K/mcL (0.0-0.6); Eosinophils % 2.4 %; Hematocrit 41.8 % (37.5-50.1); Hemoglobin 13.3 g/dL (12.9-16.9); Immature Granulocytes % 0.3 % (0-4); Lymphocytes % 12.6 %; Mean Corpuscular HGB Conc 31.8 g/dL (31.6-35.5); Mean Corpuscular Hemoglobin 27.9 pg (28.0-33.3); Mean Corpuscular Volume 87.8 fL (83.0-100.0); Mean Platelet Volume 9.8 fL (9.4-12.4); Monocytes # 0.7 K/mcL (0.0-1.3); Neutrophils # 5.7 K/mcL (1.6-8.9); Platelet Count 174 K/mcL (140-400); Red Blood Count 4.76 M/mcL (4.19-5.50); Red Cell Distribution Width 16.2 % (11.5-14.5); White Blood Count 7.6 K/mcL (4.3-11.1)
[2021-10-07 09:51] LABS: Calcium 9.5 mg/dL (8.6-10.3)
[2021-10-07] MEDS: Latanoprost 2.5 ML BOTTLE BOTH EYES SCH (21:01)
[2021-10-07] MEDS: traZODone 50 MG TABLET PO SCH (21:02)
[2021-10-08 03:40] LABS: Basophils # 0.1 K/mcL (0.0-0.2); Basophils % 0.9 %; Eosinophils # 0.2 K/mcL (0.0-0.6); Eosinophils % 2.4 %; Hemoglobin 12.6 g/dL (12.9-16.9); Immature Granulocytes % 0.3 % (0-4); Lymphocytes # 0.9 K/mcL (0.6-4.6); Lymphocytes % 13.8 %; Mean Corpuscular HGB Conc 30.7 g/dL (31.6-35.5); Mean Corpuscular Hemoglobin 27.2 pg (28.0-33.3); Mean Corpuscular Volume 88.6 fL (83.0-100.0); Mean Platelet Volume 10.1 fL (9.4-12.4); Monocytes # 0.7 K/mcL (0.0-1.3); Monocytes % 9.9 %; Neutrophils # 4.9 K/mcL (1.6-8.9); Platelet Count 150 K/mcL (140-400); Red Blood Count 4.63 M/mcL (4.19-5.50); Red Cell Distribution Width 16.4 % (11.5-14.5); Segmented Neutrophils % 72.7 %; White Blood Count 6.7 K/mcL (4.3-11.1)
[2021-10-08 03:49] LABS: Calcium 9.4 mg/dL (8.6-10.3); Potassium 4.4 mEq/L (3.5-5.1)
[2021-10-08] MEDS: Levothyroxine 25 MCG TABLET PO SCH (05:31)
[2021-10-08] MEDS: Gabapentin 100 MG CAPSULE PO SCH ×2 (08:10→15:19)
[2021-10-08] MEDS: Metoprolol XL (24 HR) Succ 25 MG TAB.ER.24H PO SCH (08:10)
[2021-10-08] MEDS: Apixaban 5 MG TABLET PO SCH (08:10)
[2021-10-08 11:22] VITALS: BP 146/94; PULSE 80; TEMP 97.5
[2021-10-08 13:54] VITALS: O2SAT 97
[2021-10-08] MEDS ORDERED: Furosemide 40 MG TABLET PO SCH (15:15)
== END 2021-10-08 15:36 | disposition home health service (06) ==
LOC: 3NENU 09:36 → EMEROOARM 09:36 → SUATTDRO 13:23 → 3NENU 14:43
PROVIDERS: ADMIT Internal Medicine; ATTEND Student in an Organized Health Care Education/Training Program

== ENCOUNTER 2021-10-11 10:11 | Inpatient (IN) ==
[2021-10-11 10:41] LABS: Basophils # 0.1 K/mcL (0.0-0.2); Basophils % 0.9 %; Eosinophils # 0.1 K/mcL (0.0-0.6); Eosinophils % 1.5 %; Hematocrit 43.4 % (37.5-50.1); Hemoglobin 13.3 g/dL (12.9-16.9); Immature Granulocytes % 0.5 % (0-4); Lymphocytes # 0.8 K/mcL (0.6-4.6); Lymphocytes % 11.6 %; Mean Corpuscular HGB Conc 30.6 g/dL (31.6-35.5); Mean Corpuscular Hemoglobin 26.9 pg (28.0-33.3); Mean Corpuscular Volume 87.7 fL (83.0-100.0); Mean Platelet Volume 9.7 fL (9.4-12.4); Monocytes # 0.6 K/mcL (0.0-1.3); Neutrophils # 5.1 K/mcL (1.6-8.9); Platelet Count 166 K/mcL (140-400); Red Blood Count 4.95 M/mcL (4.19-5.50); Red Cell Distribution Width 16.2 % (11.5-14.5); Segmented Neutrophils % 76.5 %; White Blood Count 6.6 K/mcL (4.3-11.1)
[2021-10-11 11:02] LABS: Calcium 9.6 mg/dL (8.6-10.3); Potassium 4.1 mEq/L (3.5-5.1)
[2021-10-11 11:10] LABS: Troponin I 0.04 ng/mL (< 0.04)
[2021-10-11] MEDS ORDERED: Naloxone 0.4 MG/ML INJ IVP PRN (12:53)
[2021-10-11] MEDS ORDERED: Melatonin 3 MG TABLET PO PRN (13:03)
[2021-10-11] MEDS ORDERED: MOM Conc 10 ML UD.LIQ PO PRN (13:03)
[2021-10-11] MEDS ORDERED: Ondansetron ODT 4 MG TAB.RAPDIS SL PRN (13:03)
[2021-10-11] MEDS ORDERED: Mag Hydrox/Al Hydrox/Simeth 30 ML UDC PO PRN (13:03)
[2021-10-11] MEDS ORDERED: Perflutren Lipid Microsphere 1.3 ML in 0.9 % Sodium Chloride 8.7 ML IVP PRN (13:06)
[2021-10-11] MEDS ORDERED: Furosemide 40 MG/4 ML VIAL IVP ONE (13:27)
[2021-10-11] MEDS ORDERED: D5% in Water 1,000 ML IVC PRN (13:33)
[2021-10-11] MEDS ORDERED: *HR* Dextrose 50 % in Water (Syg) 50 ML SYRINGE IVP PRN (13:33)
[2021-10-11] MEDS ORDERED: Dextrose 4 GM Chewable Tablets PO PRN ×2 (13:33)
[2021-10-11 14:13] LABS: Thyroid Stimulating Hormone 3.818 mcIU/mL (0.340-5.600)
[2021-10-11 14:38] LABS: Estimated Average Glucose 143 mg/dl; Hemoglobin A1C 6.6 %
[2021-10-11] MEDS: Metoprolol XL (24 HR) Succ 50 MG TAB.ER.24H PO SCH (15:32)
[2021-10-11] MEDS: Insulin LISPRO 300 UNITS/3 ML VIAL SUBQ SCH ×2 (16:23→21:11)
[2021-10-11] MEDS: Apixaban 5 MG TABLET PO SCH (21:11)
[2021-10-12 05:14] LABS: Basophils # 0.1 K/mcL (0.0-0.2); Basophils % 1.1 %; Eosinophils # 0.1 K/mcL (0.0-0.6); Eosinophils % 1.5 %; Hematocrit 44.8 % (37.5-50.1); Hemoglobin 13.9 g/dL (12.9-16.9); Immature Granulocytes % 0.5 % (0-4); Lymphocytes % 12.7 %; Mean Corpuscular Hemoglobin 26.8 pg (28.0-33.3); Mean Corpuscular Volume 86.5 fL (83.0-100.0); Mean Platelet Volume 10.4 fL (9.4-12.4); Monocytes # 0.8 K/mcL (0.0-1.3); Monocytes % 10.5 %; Neutrophils # 5.6 K/mcL (1.6-8.9); Platelet Count 179 K/mcL (140-400); Red Blood Count 5.18 M/mcL (4.19-5.50); Red Cell Distribution Width 16.1 % (11.5-14.5); Segmented Neutrophils % 73.7 %; White Blood Count 7.5 K/mcL (4.3-11.1)
[2021-10-12 05:33] LABS: Albumin 3.9 g/dL (3.5-5.7); Albumin/Globulin Ratio 1.6 (1.1-2.2); Bilirubin,Total 1.6 mg/dL (0.3-1.0); Calcium 9.4 mg/dL (8.6-10.3); Globulin 2.5 g/dL (2.4-3.5); Potassium 4.3 mEq/L (3.5-5.1); Total Protein 6.4 g/dL (6.4-8.9)
[2021-10-12] MEDS: Levothyroxine 25 MCG TABLET PO SCH (06:36)
[2021-10-12] MEDS ORDERED: Furosemide 20 MG TABLET PO SCH (09:00)
[2021-10-12] MEDS: Insulin LISPRO 300 UNITS/3 ML VIAL SUBQ SCH ×4 (09:30→21:49)
[2021-10-12] MEDS: Metoprolol XL (24 HR) Succ 50 MG TAB.ER.24H PO SCH (10:09)
[2021-10-12] MEDS: Valsartan 80 MG TABLET PO SCH (10:09)
[2021-10-12] MEDS: Apixaban 5 MG TABLET PO SCH ×2 (10:09→21:48)
[2021-10-12] MEDS ORDERED: Furosemide 40 MG/4 ML VIAL IVP ONE (15:11)
[2021-10-12] MEDS: Latanoprost 2.5 ML BOTTLE BOTH EYES SCH (21:48)
[2021-10-12] MEDS: Gabapentin 100 MG CAPSULE PO SCH (21:48)
[2021-10-13] MEDS: Levothyroxine 25 MCG TABLET PO SCH (05:22)
[2021-10-13 09:08] LABS: Calcium 9.4 mg/dL (8.6-10.3); Potassium 4.7 mEq/L (3.5-5.1)
[2021-10-13] MEDS: Insulin LISPRO 300 UNITS/3 ML VIAL SUBQ SCH ×4 (09:13→21:27)
[2021-10-13] MEDS: Gabapentin 100 MG CAPSULE PO SCH ×3 (10:08→21:37)
[2021-10-13] MEDS: Metoprolol XL (24 HR) Succ 50 MG TAB.ER.24H PO SCH (10:08)
[2021-10-13] MEDS: Valsartan 80 MG TABLET PO SCH (10:08)
[2021-10-13] MEDS: Apixaban 5 MG TABLET PO SCH ×2 (10:08→21:37)
[2021-10-13] MEDS ORDERED: Furosemide 40 MG/4 ML VIAL IVP ONE (10:54)
[2021-10-13] MEDS: Latanoprost 2.5 ML BOTTLE BOTH EYES SCH (21:37)
[2021-10-14 03:43] LABS: Calcium 9.7 mg/dL (8.6-10.3); Potassium 4.1 mEq/L (3.5-5.1)
[2021-10-14] MEDS: Levothyroxine 25 MCG TABLET PO SCH (06:09)
[2021-10-14] MEDS: Insulin LISPRO 300 UNITS/3 ML VIAL SUBQ SCH ×4 (08:19→22:01)
[2021-10-14] MEDS: Apixaban 5 MG TABLET PO SCH ×2 (08:20→21:58)
[2021-10-14] MEDS: Valsartan 80 MG TABLET PO SCH (08:20)
[2021-10-14] MEDS: Gabapentin 100 MG CAPSULE PO SCH ×3 (08:21→21:58)
[2021-10-14] MEDS: Metoprolol XL (24 HR) Succ 50 MG TAB.ER.24H PO SCH (08:21)
[2021-10-14] MEDS ORDERED: Furosemide 40 MG/4 ML VIAL IVP ONE (08:41)
[2021-10-14] MEDS: Latanoprost 2.5 ML BOTTLE BOTH EYES SCH (22:02)
[2021-10-15] MEDS: Levothyroxine 25 MCG TABLET PO SCH (06:06)
[2021-10-15 07:16] VITALS: O2SAT 99
[2021-10-15] MEDS: Insulin LISPRO 300 UNITS/3 ML VIAL SUBQ SCH ×2 (08:31→14:27)
[2021-10-15] MEDS: Gabapentin 100 MG CAPSULE PO SCH ×2 (08:35→15:56)
[2021-10-15] MEDS: Apixaban 5 MG TABLET PO SCH (08:35)
[2021-10-15] MEDS: Metoprolol XL (24 HR) Succ 50 MG TAB.ER.24H PO SCH (08:35)
[2021-10-15 10:46] VITALS: BP 113/69; PULSE 60; TEMP 97.6
[2021-10-15] MEDS: Valsartan 80 MG TABLET PO SCH (12:13)
[2021-10-15 15:26] LABS: Hematocrit 41.5 % (37.5-50.1)
== END 2021-10-15 17:14 | disposition home or self-care (01) | DRG 280 ==
LOC: EMEROOARM 10:11 → 3BNU 10:11 → SUATTDRO 13:22 → 3BNU 14:33
PROVIDERS: ADMIT Internal Medicine; ATTEND Registered Nurse

== ENCOUNTER 2021-10-23 10:12 | Observation (INO) ==
[2021-10-23 11:11] LABS: Basophils # 0.1 K/mcL (0.0-0.2); Basophils % 0.7 %; Eosinophils # 0.1 K/mcL (0.0-0.6); Eosinophils % 1.1 %; Hematocrit 46.8 % (37.5-50.1); Hemoglobin 14.3 g/dL (12.9-16.9); Immature Granulocytes % 0.8 % (0-4); Lymphocytes # 1.1 K/mcL (0.6-4.6); Lymphocytes % 11.3 %; Mean Corpuscular HGB Conc 30.6 g/dL (31.6-35.5); Mean Corpuscular Hemoglobin 26.6 pg (28.0-33.3); Mean Platelet Volume 10.1 fL (9.4-12.4); Neutrophils # 7.5 K/mcL (1.6-8.9); Platelet Count 212 K/mcL (140-400); Red Blood Count 5.38 M/mcL (4.19-5.50); Red Cell Distribution Width 17.7 % (11.5-14.5); Segmented Neutrophils % 76.1 %; White Blood Count 9.8 K/mcL (4.3-11.1)
[2021-10-23 11:25] LABS: BUN/Creatinine Ratio 28 (6-26); Blood Urea Nitrogen 52 mg/dL (8-23); Calcium 9.2 mg/dL (8.6-10.3); Carbon Dioxide 21 mEq/L (23-29); Chloride 105 mEq/L (98-107); Glucose 94 mg/dL (70-105); Osmolality,Calculated 298 (280-300); Potassium 4.1 mEq/L (3.5-5.1); Sodium 137 mEq/L (136-145); Troponin I < 0.03 ng/mL (< 0.04); eGFR For African Americans 44 (> 60); eGFR For Non-African Americans 36 (> 60)
[2021-10-23] MEDS ORDERED: Furosemide 40 MG/4 ML VIAL IVP ONE (12:12)
[2021-10-23] MEDS ORDERED: Mag Hydrox/Al Hydrox/Simeth 30 ML UDC PO PRN (13:36)
[2021-10-23] MEDS ORDERED: Melatonin 3 MG TABLET PO PRN (13:36)
[2021-10-23] MEDS ORDERED: Ondansetron ODT 4 MG TAB.RAPDIS SL PRN (13:36)
[2021-10-23] MEDS ORDERED: MOM Conc 10 ML UD.LIQ PO PRN (13:36)
[2021-10-23] MEDS ORDERED: Naloxone 0.4 MG/ML INJ IVP PRN (13:36)
[2021-10-23] MEDS ORDERED: Dextrose 4 GM Chewable Tablets PO PRN ×2 (13:45)
[2021-10-23] MEDS ORDERED: *HR* Dextrose 50 % in Water (Syg) 50 ML SYRINGE IVP PRN (13:45)
[2021-10-23] MEDS ORDERED: D5% in Water 1,000 ML IVC PRN (13:45)
[2021-10-23] MEDS: Gabapentin 100 MG CAPSULE PO SCH ×2 (16:03→19:54)
[2021-10-23] MEDS: Insulin LISPRO 300 UNITS/3 ML VIAL SUBQ SCH ×2 (16:49→19:54)
[2021-10-23 19:15] LABS: Estimated Average Glucose 134 mg/dl; Hemoglobin A1C 6.3 %
[2021-10-23] MEDS: Apixaban 5 MG TABLET PO SCH (19:54)
[2021-10-23] MEDS: Insulin DETEMIR 100 UNIT/ML X5UNITS SUBQ SCH (20:32)
[2021-10-24 03:48] LABS: Basophils # 0.1 K/mcL (0.0-0.2); Basophils % 1.2 %; Eosinophils # 0.1 K/mcL (0.0-0.6); Eosinophils % 1.8 %; Hematocrit 41.7 % (37.5-50.1); Hemoglobin 12.9 g/dL (12.9-16.9); Immature Granulocytes % 0.6 % (0-4); Lymphocytes # 1.1 K/mcL (0.6-4.6); Lymphocytes % 14.3 %; Mean Corpuscular HGB Conc 30.9 g/dL (31.6-35.5); Mean Corpuscular Hemoglobin 26.7 pg (28.0-33.3); Mean Corpuscular Volume 86.3 fL (83.0-100.0); Mean Platelet Volume 10.2 fL (9.4-12.4); Monocytes % 12.6 %; Neutrophils # 5.4 K/mcL (1.6-8.9); Platelet Count 182 K/mcL (140-400); Red Blood Count 4.83 M/mcL (4.19-5.50); Red Cell Distribution Width 17.1 % (11.5-14.5); Segmented Neutrophils % 69.5 %; White Blood Count 7.8 K/mcL (4.3-11.1)
[2021-10-24 03:59] LABS: Albumin 3.7 g/dL (3.5-5.7); Albumin/Globulin Ratio 1.4 (1.1-2.2); Bilirubin,Total 1.2 mg/dL (0.3-1.0); Calcium 8.9 mg/dL (8.6-10.3); Globulin 2.6 g/dL (2.4-3.5); Potassium 3.7 mEq/L (3.5-5.1); Total Protein 6.3 g/dL (6.4-8.9)
[2021-10-24] MEDS: Levothyroxine 25 MCG TABLET PO SCH (05:24)
[2021-10-24] MEDS: Insulin LISPRO 300 UNITS/3 ML VIAL SUBQ SCH ×4 (07:49→21:14)
[2021-10-24] MEDS: Valsartan 80 MG TABLET PO SCH (08:36)
[2021-10-24] MEDS: Apixaban 5 MG TABLET PO SCH ×2 (08:36→21:15)
[2021-10-24] MEDS: Gabapentin 100 MG CAPSULE PO SCH ×3 (08:36→21:15)
[2021-10-24] MEDS ORDERED: Furosemide 40 MG/4 ML VIAL IVP SCH (09:00)
[2021-10-24] MEDS: Metoprolol XL (24 HR) Succ 25 MG TAB.ER.24H PO SCH (11:59)
[2021-10-24] MEDS: Insulin DETEMIR 100 UNIT/ML X5UNITS SUBQ SCH (21:18)
[2021-10-25 03:29] LABS: Basophils # 0.1 K/mcL (0.0-0.2); Basophils % 0.9 %; Eosinophils # 0.1 K/mcL (0.0-0.6); Eosinophils % 1.7 %; Hematocrit 42.1 % (37.5-50.1); Hemoglobin 12.9 g/dL (12.9-16.9); Immature Granulocytes % 0.6 % (0-4); Lymphocytes # 1.1 K/mcL (0.6-4.6); Lymphocytes % 15.7 %; Mean Corpuscular HGB Conc 30.6 g/dL (31.6-35.5); Mean Corpuscular Hemoglobin 26.6 pg (28.0-33.3); Mean Corpuscular Volume 86.8 fL (83.0-100.0); Mean Platelet Volume 10.7 fL (9.4-12.4); Monocytes # 0.9 K/mcL (0.0-1.3); Monocytes % 12.4 %; Neutrophils # 4.8 K/mcL (1.6-8.9); Platelet Count 179 K/mcL (140-400); Red Blood Count 4.85 M/mcL (4.19-5.50); Segmented Neutrophils % 68.7 %
[2021-10-25 04:20] LABS: Calcium 9.2 mg/dL (8.6-10.3); Potassium 4.6 mEq/L (3.5-5.1)
[2021-10-25] MEDS: Levothyroxine 25 MCG TABLET PO SCH (05:45)
[2021-10-25] MEDS ORDERED: Regadenoson 0.4 MG/5 ML SYRINGE IVP ONE (05:58)
[2021-10-25 06:47] VITALS: BP 104/58; PULSE 60; TEMP 97.9; O2SAT 98
[2021-10-25] MEDS: Insulin LISPRO 300 UNITS/3 ML VIAL SUBQ SCH (07:17)
[2021-10-25] MEDS ORDERED: Furosemide 40 MG TABLET PO SCH (09:00)
[2021-10-25] MEDS: Metoprolol XL (24 HR) Succ 25 MG TAB.ER.24H PO SCH (09:09)
[2021-10-25] MEDS: Valsartan 80 MG TABLET PO SCH (09:09)
[2021-10-25] MEDS: Apixaban 5 MG TABLET PO SCH (09:10)
[2021-10-25] MEDS: Gabapentin 100 MG CAPSULE PO SCH (09:10)
== END 2021-10-25 13:27 | disposition home or self-care (01) ==
LOC: 2ANU 10:12 → EMEROOARM 10:12 → SUATTDRO 13:17 → 3BNU 13:36
PROVIDERS: ADMIT Internal Medicine; ATTEND Registered Nurse